=== PATIENT | female | born 1990 | race Caucasian/White ===

== ENCOUNTER 2019-09-26 10:05 | Inpatient (IN) ==
[2019-09-26] MEDS ORDERED: OXYTOCIN 30 UNITS/500 ML BAG IV PRN ×2 (10:17)
--- NOTE | 2019-09-26 10:28 | History & Physical Report ---
Date of Service September 26, 2019 Assessment & Plan (1) : Patient is a 29 yo here for IOL. -GBS -, Blood type A+ -Pitocin for contraction augmentation -Patient desires epidural; will consult anaesthesia when contractions become painful -BSG checks q4h -Anticipate vaginal delivery. (2) Insulin controlled gestational diabetes mellitus (GDM) during : (3) Nausea and vomiting in : (4) Supervision of normal first : History of Present Illness Chief Complaint: IOL Primary Care Provider: DIONISIO PCP at 40W 0D by certain LMP 12/20/18 presenting today for IOL. Patient notes that she has GDM and has been taking insulin throughout the . She notes that her sugars have been well controlled on the insulin and that her most recent check this morning around 6AM was blood sugar 59, she shortly had some eggs afterwards. She denies any complications with the current otherwise and has been attending OB appointments appropriately. She has been taking her insulin, prenatals, and Zofran as needed for nausea. She notes movement and minimal contractions (one every 1/2 hour for a few seconds). She denies any gush of fluid, but does note some spotting which she associates with having her cervix checked the day prior. Labs -Blood type: A+ -Antibody screen: Negative -H.9 -Hct: 37.4 -Wbc: 9.23 -Plt: 165 -Rubella: Immune -VDRL/RPR: Nonreactive -Gonorrhea: Not detected -Chlamydia: Not detected -HIV: Negative -HbSAg: Negative -GBS: Negative -Glucose tolerance x 2: 1hr GTT 165, no 2hr conducted. Allergies Allergy/AdvReac Type Severity Reaction Status Date / Time No Known Allergies Verified 09/25/19 08:40 Home Medications Home Medications Medication Instructions Recorded Confirmed Type KIG-[id number] 3-fat com #1 27 cap PO cap 03/12/19 09/25/19 History mg-1 mg-300 mg capsule blood sugar diagnostic #120 ea 05/24/19 09/25/19 Rx lancets 33 gauge #120 ea 05/24/19 09/25/19 Rx acetone (urine) test #50 ea 05/25/19 09/25/19 Rx insulin syringe-needle U-100 0.5 #50 ea 06/06/19 09/25/19 Rx mL 31 gauge x 5/16" insulin aspart U-100 100 unit/mL See Rx Instructions SQ .COMPLEX 06/13/19 09/26/19 Rx (3 mL) subcutaneous pen #15 ml pen needle, diabetic 32 gauge x #100 ea 06/13/19 09/25/19 Rx 5/32" insulin syringe-needle U-100 1 mL #100 ea 07/18/19 09/25/19 Rx 31 gauge x 5/16" insulin NPH isoph U-100 human 100 units SQ QPM 09/26/19 09/26/19 History [Novolin N NPH U-100 Insulin] Patient History Medical History History of varicella vaccination Status post induced Surgical History S/P tendon repair S/P wisdom tooth extraction S/P wrist surgery Family History Mother Anaphylactic shock Anxiety Other Diabetes Denies family history of Ovarian cancer Prostate cancer Breast cancer Colorectal cancer Social History Preferred Language: Malian Communication Ability: Effective Postulant Required: No Beliefs That Will Affect Care: None marital status: Single Current Living Situation: Alone and Significant Other Other Information That Helps Us Care for You: No Feels Safe at Home: Yes Safety Concerns: Feels Safe At This Time Smoking Status: Never smoker Hx Alcohol Use: No Hx Substance Use: No OB History S/P prior induced [employer] History noncontributory Review of Systems no fever, no chills and no weakness no worsening vision no dizziness no cough and no dyspnea no chest pain, no dyspnea and no palpitations no abdominal pain, no nausea, no vomiting, no constipation and no diarrhea/loose stools no dysuria and no hematuria no headache(s) Physical Exam Constitutional: WD/WN, vitals as above Eyes: PERRL, conjunctivae normal, anicteric sclerae ENMT: external ear and nose normal, oropharynx normal Neck: normal visual inspection Respiratory: normal respiratory effort, lungs clear to auscultation Cardiovascular: Rate/Rhythm: regular rate and regular rhythm Heart Sounds: normal S1 and normal S2; no murmur Gastrointestinal (Abdomen): Inspection/Auscultation: + abdomen distended (Gravid) and normal bowel sounds Percussion/Palpation: abdomen soft; abdomen nontender Psychiatric: A+Ox3, euthymic affect Genitourinary: OB Exam Abdomen: + fundal height (Term), + heart tones, + vertex and + estimated weight (7 lbs) Manual OB Exam: + cervical dilation 2 cm, + cervical effacement 70% and + station -2 [address] Exam [address] by Dr[address] Peña Results & Data Vital Signs (Past 12 Hours) Vital Signs Temp Pulse Resp BP 09/26/19 10:16 36.9 C 20 09/26/19 10:15 114 H 164/96 H Code Status & VTE Plan VTE Prophylaxis Plan VTE Prophylaxis will be ordered: No Reason for no VTE drug order: Contraindicated Monitoring External Monitor Category 1, FHR 145 Supervising Physician Co-Signing Physician Notes Resident Physician Supervision Note: I was present with Dr. Mckeon during the history and exam. I discussed the case with the resident and agree with the findings and plan as documented in the note. Any exceptions or clarifications are listed here: Empirically dx'd with GDM at 23 weeks after declining 2hr GTT. AC>75% and patient on insulin. Followed per protocol, here for induction. Cervix favorable, pitocin per induction protocol. Documented By: Priyank Peña Jr, MD, FACOG Coding Level of Care Code None Diagnoses Z34.90 Insulin controlled gestational diabetes mellitus (GDM) during O24.414 Nausea and vomiting in O21.9 Supervision of normal first Z34.00 Resident Activity Tracking Resident Involvement: Resident Care Provided Care Provided: OB Delivery
[2019-09-26 10:38] LABS: Basophils # (auto) 0.02 K/uL (0-0.2); Basophils % (auto) 0.2 %; Eosinophils # (auto) 0.08 K/uL (0-0.5); Eosinophils % (auto) 0.9 %; Hematocrit (blood only) 37.4 % (37-47); Hemoglobin 12.9 g/dL (12.0-16.0); Immature Granulocytes # (auto) 0.02 K/uL (0.00-0.02); Immature Granulocytes % (auto) 0.2 %; Lymphocytes # (auto) 1.11 K/uL (1.2-3.4); Mean Corpuscular Hemoglobin 31.1 pg (25-34); Mean Corpuscular Volume 90.1 fL (80-100); Mean Platelet Volume 12.7 fL (7.4-10.4); Monocytes # (auto) 0.82 K/uL (0.11-0.59); Monocytes % (auto) 8.9 %; Neutrophils # (auto) 7.18 K/uL (1.4-6.5); Neutrophils % (auto) 77.8 %; Platelet Count 163 K/uL (130-400); RDW Coefficient of Variation 13.7 % (11.5-14.5); RDW Standard Deviation 45.3 fL (36.4-46.3); Red Blood Count 4.15 M/uL (4.2-5.4); White Blood Count 9.23 K/uL (4.8-10.8)
[2019-09-26 10:47] LABS: Mean Corpuscular Hgb Conc 34.5 g/dL (32-36)
[2019-09-26 10:51] LABS: INR 0.9 (0.9-1.1); Prothrombin Time 9.4 Seconds (9.0-12.0)
[2019-09-26 11:01] LABS: Alanine Aminotransferase 24 U/L (12-78); Albumin Level 2.8 gm/dl (3.4-5.0); Aspartate Aminotransferase 22 U/L (15-37); Bilirubin Direct < 0.1 mg/dl (0-0.2); Creatinine Clr Calc Pharmacy 186.5 ml/min; Est GFR (African American) 149.6; Uric Acid 5.8 mg/dl (2.6-7.2)
[2019-09-26 11:04] LABS: Alkaline Phosphatase 150 U/L (45-117); Bilirubin,Total 0.3 mg/dl (0.2-1)
[2019-09-26] MEDS: LACTATED RINGER'S 1,000 ML IV PRN ×3 (11:34→23:08)
--- NOTE | 2019-09-26 14:48 | Labor Progress Brief Note ---
Date of Service September 26, 2019 Subjective Reason For Note: Routine Evaluation Aware of ctx's Assessment & Plan (1) Insulin controlled gestational diabetes mellitus (GDM) during : (2) Supervision of normal first : - tracing Cat II, accelerations, moderate variability - continue pitocin Physical Exam Genitourinary: Cervix: no change, AROM, clear, IUPC placed Results & Data Vital Signs (Past 12 Hours) Vital Signs Temp Pulse Resp BP 09/26/19 14:30 20 09/26/19 14:03 99 H 120/73 09/26/19 14:00 20 09/26/19 13:33 100 H 136/97 09/26/19 13:30 18 09/26/19 13:03 94 H 141/84 H 09/26/19 13:00 20 09/26/19 12:35 95 H 135/85 09/26/19 12:33 100 H 143/98 H 09/26/19 12:30 20 09/26/19 12:03 100 H 150/94 H 09/26/19 12:00 99 H 20 169/95 H 09/26/19 11:45 98.4 F 18 09/26/19 11:30 20 09/26/19 10:51 98 H 146/89 H 09/26/19 10:43 101 H 139/92 09/26/19 10:22 100 H 144/89 H 09/26/19 10:20 98.4 F 09/26/19 10:16 98.4 F 09/26/19 10:15 114 H 164/96 H Coding Level of Care Code None Diagnoses Insulin controlled gestational diabetes mellitus (GDM) during O24.414 Supervision of normal first Z34.00
[2019-09-26] MEDS ORDERED: ePHEDrine sulfate 50 MG/ML AMP ONE (16:42)
[2019-09-26] MEDS ORDERED: fentaNYL citrate 100 MCG/2 ML VIAL ONE ×3 (16:42→21:50)
[2019-09-26] MEDS ORDERED: BUPIVACAINE 0.25% 30 ML VIAL ONE ×3 (16:42→21:50)
[2019-09-26] MEDS ORDERED: fentaNYL 2MCG/ML ROPIV 1.25MG/ML 100 ML BAG EPI ONE (16:42)
--- NOTE | 2019-09-26 17:03 | Anesthesiology Consultation ---
Date of Service September 26, 2019 Assessment & Plan Chart Review Chart Review: Acceptable Risk for Surgery, Patient NOT seen in Pre Admission Testing and Acceptable Risk for Labor Epidural Consults Requested none ASA ASA3 Proposed Anesthesia Anesthesia Type: Labor Epidural and CSE Risk / Benefits Reviewed With: PT / POA / Parent / Guardian, Accepts Plan and Informed Consent Obtained History Height/Weight Height: 5 ft 2 in Weight: 107.955 kg Allergies Allergy/AdvReac Type Severity Reaction Status Date / Time No Known Allergies Verified 09/25/19 08:40 Medications Home Medications Medication Instructions Recorded Confirmed Last Taken [id number]-[id number]-omega 3-fat com #1 27 cap PO cap 03/12/19 09/25/19 1 Day Ago mg-1 mg-300 mg capsule ~09/25/19 0800 blood sugar diagnostic #120 ea 05/24/19 09/25/19 Unknown lancets 33 gauge #120 ea 05/24/19 09/25/19 Unknown acetone (urine) test #50 ea 05/25/19 09/25/19 Unknown insulin syringe-needle U-100 0.5 #50 ea 06/06/19 09/25/19 Unknown mL 31 gauge x 5/16" insulin aspart U-100 100 unit/mL See Rx Instructions SQ .COMPLEX 06/13/19 09/26/19 09/25/19 20:00 (3 mL) subcutaneous pen #15 ml 10 units pen needle, diabetic 32 gauge x #100 ea 06/13/19 09/25/19 Unknown 5/32" insulin syringe-needle U-100 1 mL #100 ea 07/18/19 09/25/19 Unknown 31 gauge x 5/16" insulin NPH isoph U-100 human 100 units SQ QPM 09/26/19 09/26/19 1 Day Ago [Novolin N NPH U-100 Insulin] ~09/25/19 100 units Active Medications Generic Name Dose Route Start Last Admin Trade Name Freq PRN Reason Stop Dose Admin Lactated Ringer's 1,000 mls @ 125 mls/hr 09/26/19 10:09/26/19 16:48 Lr IV 09/28/19 10:16 999 mls/hr .Q8H PRN Administration L&D Protocol Protocol Oxytocin 30 units in 500 mls @ 9 mls/hr 09/26/19 10:17 09/26/19 15:53 Pitocin IV 02/16/20 10:16 0.54 units/hr .Q24H PRN 9 mls/hr Labor Induction/Augmentation Titration Protocol 0.54 UNITS/HR NPO Date Last Intake of Fluids: 09/26/19 Time Last Intake of Fluids: 15:30 Date Last Intake of Solids: 09/26/19 Time Last Intake of Solids: 06:30 Past Medical History Medical History History of varicella vaccination Status post induced Exercise / Class Metabolic Activity III < 4 Walking/Shop/Light housework Past Family History Family History Mother Anaphylactic shock Anxiety Other Diabetes Denies family history of Ovarian cancer Prostate cancer Breast cancer Colorectal cancer Past Surgical History Surgical History S/P tendon repair S/P wisdom tooth extraction S/P wrist surgery Past Anesthesia History No Hx of Anesthesia Complications and No Family Hx of Anesthesia Complications History of PONV No Hx of PONV and No Hx of Motion Sickness Social History Smoking Status: Never smoker Hx Alcohol Use: No Hx Substance Use: No Physical Exam Vital Signs Last Vital Signs Temp 36.6 C 09/26/19 15:30 Pulse 112 H 09/26/19 16:56 Resp 18 09/26/19 16:00 BP 136/84 09/26/19 16:04 Pulse Ox 99 09/26/19 16:56 Constitutional + morbidly obese ENMT Mouth: + small oral opening; no dentition abnormality Thyromental Distance: < 3.5 Finger Breadths Mallampati Class: III Neck normal visual inspection and trachea midline; neck extension not limited Respiratory normal respiratory effort Auscultation: lungs clear to auscultation bilaterally Cardiovascular Rate/Rhythm: regular rate and regular rhythm Heart Sounds: no murmur Vessels: no carotid bruit Musculoskeletal Spine: lumbar spine normal to inspection; normal cervical ROM Neurologic moves all extremities Motor/Sensory: no sensory deficit Psychiatric Orientation: alert and oriented x 3 Testing Laboratory Results 09/26/19 10:25 09/26/19 10:25 PT 9.4 Seconds (9.0-12.0) 09/26/19 10:25 INR 0.9 (0.9-1.1) 09/26/19 10:25 09/26/19 09/26/19 09/26/19 15:21 14:57 13:38 POC Glucose 104 H 62 L* 81 09/26/19 09/26/19 13:19 11:05 POC Glucose 60 L* 93
[2019-09-26] MEDS ORDERED: ePHEDrine sulfate 50 MG/ML AMP IV PRN (18:07)
[2019-09-26] MEDS ORDERED: NALOXONE HCL 1 MG in SODIUM CHLORIDE 0.9% 1000ML 1,000 ML IV PRN (18:07)
[2019-09-26] MEDS ORDERED: ONDANSETRON INJ 2 MG/ML 2 ML VIAL IV PRN (18:07)
[2019-09-26] MEDS ORDERED: NALOXONE HCL 0.4 MG/1 ML VIAL/CARP IV PRN (18:07)
--- NOTE | 2019-09-26 20:46 | Labor Progress Brief Note ---
Date of Service September 26, 2019 Subjective Reason For Note: Routine Evaluation Assessment & Plan (1) Insulin controlled gestational diabetes mellitus (GDM) during : (2) Supervision of normal first : - tracing Cat II, moderate variability with accelerations - pt comfortable with epidural - pitocin at 19 - will continue pitocin - will increase to 30 if needed Physical Exam Genitourinary: Cervix: 4-5/100/-2 Results & Data Vital Signs (Past 12 Hours) Vital Signs Temp Pulse Resp BP Pulse Ox 09/26/19 20:41 106 H 95 09/26/19 20:39 103 H 127/75 09/26/19 20:36 107 H 96 09/26/19 20:31 102 H 97 09/26/19 20:26 97 H 97 09/26/19 20:24 104 H 156/77 H 09/26/19 20:21 101 H 97 09/26/19 20:16 97 H 96 09/26/19 20:11 98 H 95 09/26/19 20:09 104 H 137/80 09/26/19 20:06 107 H 96 09/26/19 20:01 96 H 97 09/26/19 20:00 18 09/26/19 19:56 93 H 98 09/26/19 19:54 90 137/81 09/26/19 19:51 93 H 97 09/26/19 19:46 96 H 95 09/26/19 19:41 83 96 09/26/19 19:39 88 134/78 09/26/19 19:36 95 H 96 09/26/19 19:31 95 H 96 09/26/19 19:30 20 09/26/19 19:26 92 H 96 09/26/19 19:22 89 138/86 09/26/19 19:21 91 H 97 09/26/19 19:16 82 97 09/26/19 19:11 87 97 09/26/19 19:08 85 136/79 09/26/19 19:06 106 H 97 09/26/19 19:01 89 94 09/26/19 19:00 18 09/26/19 18:56 90 98 09/26/19 18:54 92 H 129/74 09/26/19 18:51 97 H 99 09/26/19 18:46 104 H 98 09/26/19 18:41 109 H 100 09/26/19 18:38 134/78 09/26/19 18:36 103 H 96 09/26/19 18:34 104 H 129/79 09/26/19 18:31 108 H 97 09/26/19 18:26 98 H 97 09/26/19 18:21 98 H 95 09/26/19 18:17 102 H 110/64 09/26/19 18:16 105 H 95 09/26/19 18:15 103 H 116/61 09/26/19 18:13 102 H 110/63 09/26/19 18:11 98 H 129/71 94 09/26/19 18:09 104 H 126/65 09/26/19 18:07 101 H 133/63 09/26/19 18:06 106 H 94 09/26/19 18:05 99 H 120/71 09/26/19 18:03 98 H 124/74 09/26/19 18:01 111 H 95 09/26/19 18:00 97.9 F 111 H 127/72 09/26/19 17:57 115 H 139/89 09/26/19 17:55 112 H 95 09/26/19 17:50 119 H 94 09/26/19 17:48 132 H 87 L 09/26/19 17:45 112 H 94 09/26/19 17:40 112 H 94 09/26/19 17:35 113 H 96 09/26/19 17:26 105 H 99 09/26/19 17:25 106 H 86 L 09/26/19 17:21 109 H 100 09/26/19 17:16 157 H 79 L 09/26/19 17:11 117 H 89 L 09/26/19 17:06 123 H 100 09/26/19 17:01 110 H 100 09/26/19 17:00 22 09/26/19 16:56 112 H 99 09/26/19 16:51 115 H 99 09/26/19 16:30 20 09/26/19 16:04 87 136/84 09/26/19 16:00 18 09/26/19 15:40 97 H 133/71 09/26/19 15:34 100 H 153/95 H 09/26/19 15:30 97.9 F 20 09/26/19 15:00 20 09/26/19 14:30 20 0214/20 14:03 99 H 120/73 09/26/19 14:00 20 09/26/19 13:33 100 H 136/97 09/26/19 13:30 18 09/26/19 13:03 94 H 141/84 H 09/26/19 13:00 20 09/26/19 12:35 95 H 135/85 09/26/19 12:33 100 H 143/98 H 09/26/19 12:30 20 09/26/19 12:03 100 H 150/94 H 09/26/19 12:00 99 H 20 169/95 H 09/26/19 11:45 98.4 F 18 09/26/19 11:30 20 09/26/19 10:51 98 H 146/89 H 09/26/19 10:43 101 H 139/92 09/26/19 10:22 100 H 144/89 H 09/26/19 10:20 98.4 F 20 09/26/19 10:16 98.4 F 09/26/19 10:15 114 H 164/96 H Coding Level of Care Code None Diagnoses Insulin controlled gestational diabetes mellitus (GDM) during O24.414 Supervision of normal first Z34.00
--- NOTE | 2019-09-26 21:44 | Labor Progress Brief Note ---
Date of Service September 26, 2019 Subjective Reason For Note: Requested By RN difficulty tracing baby Assessment & Plan (1) Insulin controlled gestational diabetes mellitus (GDM) during : - FSE applied for monitoring - continue pitocin (2) Supervision of normal first : Physical Exam Genitourinary: Cervix: no change, FSE applied Results & Data Vital Signs (Past 12 Hours) Vital Signs Temp Pulse Resp BP Pulse Ox 09/26/19 21:41 113 H 95 09/26/19 21:37 106 H 124/74 09/26/19 21:36 97 H 93 09/26/19 21:35 100 H 135/82 09/26/19 21:31 101 H 94 09/26/19 21:26 100 H 94 09/26/19 21:21 116 H 95 09/26/19 21:16 112 H 97 09/26/19 21:11 99 H 96 09/26/19 21:08 102 H 134/70 09/26/19 21:06 110 H 95 09/26/19 21:01 108 H 97 09/26/19 21:00 18 09/26/19 20:56 101 H 95 09/26/19 20:54 99 H 134/83 09/26/19 20:51 102 H 95 09/26/19 20:46 104 H 94 09/26/19 20:41 106 H 95 09/26/19 20:39 103 H 127/75 09/26/19 20:36 107 H 96 09/26/19 20:31 102 H 97 09/26/19 20:30 20 09/26/19 20:26 97 H 97 09/26/19 20:24 104 H 156/77 H 09/26/19 20:21 101 H 97 09/26/19 20:16 97 H 96 09/26/19 20:11 98 H 95 09/26/19 20:09 104 H 137/80 09/26/19 20:06 107 H 96 09/26/19 20:01 96 H 97 09/26/19 20:00 18 09/26/19 19:56 93 H 98 09/26/19 19:54 90 137/81 09/26/19 19:51 93 H 97 09/26/19 19:46 96 H 95 09/26/19 19:41 83 96 09/26/19 19:39 88 134/78 09/26/19 19:36 95 H 96 09/26/19 19:31 95 H 96 09/26/19 19:30 20 09/26/19 19:26 92 H 96 09/26/19 19:22 89 138/86 09/26/19 19:21 91 H 97 09/26/19 19:16 82 97 09/26/19 19:11 87 97 09/26/19 19:08 85 136/79 09/26/19 19:06 106 H 97 09/26/19 19:01 89 94 09/26/19 19:00 18 09/26/19 18:56 90 98 09/26/19 18:54 92 H 129/74 09/26/19 18:51 97 H 99 09/26/19 18:46 104 H 98 09/26/19 18:41 109 H 100 09/26/19 18:38 134/78 09/26/19 18:36 103 H 96 09/26/19 18:34 104 H 129/79 09/26/19 18:31 108 H 97 09/26/19 18:26 98 H 97 09/26/19 18:21 98 H 95 09/26/19 18:17 102 H 110/64 09/26/19 18:16 105 H 95 09/26/19 18:15 103 H 116/61 09/26/19 18:13 102 H 110/63 09/26/19 18:11 98 H 129/71 94 09/26/19 18:09 104 H 126/65 09/26/19 18:07 101 H 133/63 09/26/19 18:06 106 H 94 09/26/19 18:05 99 H 120/71 09/26/19 18:03 98 H 124/74 09/26/19 18:01 111 H 95 09/26/19 18:00 97.9 F 111 H 127/72 09/26/19 17:57 115 H 139/89 09/26/19 17:55 112 H 95 09/26/19 17:50 119 H 94 09/26/19 17:48 132 H 87 L 09/26/19 17:45 112 H 94 09/26/19 17:40 112 H 94 09/26/19 17:35 113 H 96 09/26/19 17:26 105 H 99 09/26/19 17:25 106 H 86 L 09/26/19 17:21 109 H 100 09/26/19 17:16 157 H 79 L 09/26/19 17:11 117 H 89 L 09/26/19 17:06 123 H 100 09/26/19 17:01 110 H 100 09/26/19 17:00 22 09/26/19 16:56 112 H 99 09/26/19 16:51 115 H 99 09/26/19 16:30 20 09/26/19 16:04 87 136/84 09/26/19 16:00 18 09/26/19 15:40 97 H 133/71 09/26/19 15:34 100 H 153/95 H 09/26/19 15:30 97.9 F 20 09/26/19 15:00 20 09/26/19 14:30 20 09/26/19 14:03 99 H 120/73 09/26/19 14:00 20 09/26/19 13:33 100 H 136/97 09/26/19 13:30 18 09/26/19 13:03 94 H 141/84 H 09/26/19 13:00 20 09/26/19 12:35 95 H 135/85 09/26/19 12:33 100 H 143/98 H 09/26/19 12:30 20 09/26/19 12:03 100 H 150/94 H 09/26/19 12:00 99 H 20 169/95 H 09/26/19 11:45 98.4 F 18 09/26/19 11:30 20 09/26/19 10:51 98 H 146/89 H 09/26/19 10:43 101 H 139/92 09/26/19 10:22 100 H 144/89 H 09/26/19 10:20 98.4 F 20 09/26/19 10:16 98.4 F 20 09/26/19 10:15 114 H 164/96 H Coding Level of Care Code None Diagnoses Insulin controlled gestational diabetes mellitus (GDM) during O24.414 Supervision of normal first Z34.00
--- NOTE | 2019-09-26 22:00 | Communication Note ---
Date of Service: September 26, 2019 At 2155, pt's epidural catheter was bolused w/ 12 ml 0.17% bupivacaine + 100 mcgs fentanyl,w/ intermittent aspiration and injections q 2ml w/o incident. PT vital signs are stable.
[2019-09-26] MEDS ORDERED: Nursing to Pharmacy Communication ONE (23:01)
[2019-09-27] MEDS: fentaNYL 2MCG/ML ROPIV 1.25MG/ML 100 ML BAG EPI PRN ×2 (00:55→06:08)
--- NOTE | 2019-09-27 02:40 | Labor Progress Brief Note ---
Date of Service September 27, 2019 Subjective Reason For Note: Routine Evaluation Assessment & Plan (1) Insulin controlled gestational diabetes mellitus (GDM) during : (2) Supervision of normal first : - tracing Cat II, accelerations and variability - pitocin at 30mU - cervical progress being made - continue induction Physical Exam Genitourinary: Cervix: 7-8/100/-1 Results & Data Vital Signs (Past 12 Hours) Vital Signs Temp Pulse Resp BP Pulse Ox 09/27/19 02:35 115 H 89/56 L 09/27/19 02:31 109 H 92 09/27/19 02:26 111 H 92 09/27/19 02:21 107 H 92 09/27/19 02:20 110 H 100/54 L 09/27/19 02:16 108 H 92 09/27/19 02:11 110 H 93 09/27/19 02:06 116 H 94 09/27/19 02:05 121 H 125/58 L 09/27/19 02:03 18 09/27/19 02:01 129 H 94 09/27/19 01:56 125 H 94 09/27/19 01:51 117 H 95 09/27/19 01:48 123 H 126/63 09/27/19 01:46 120 H 95 09/27/19 01:41 141 H 95 09/27/19 01:36 121 H 93 09/27/19 01:31 116 H 95 09/27/19 01:26 111 H 93 09/27/19 01:21 110 H 93 09/27/19 01:18 117 H 135/82 09/27/19 01:16 114 H 94 09/27/19 01:11 115 H 94 09/27/19 01:06 121 H 94 09/27/19 01:05 114 H 18 132/89 09/27/19 01:01 111 H 94 09/27/19 00:56 113 H 94 09/27/19 00:51 111 H 94 09/27/19 00:49 99.1 F 18 09/27/19 00:48 127 H 127/71 09/27/19 00:46 125 H 94 09/27/19 00:41 127 H 94 09/27/19 00:36 110 H 93 09/27/19 00:33 111 H 117/67 09/27/19 00:31 113 H 93 09/27/19 00:26 111 H 93 09/27/19 00:21 114 H 94 09/27/19 00:18 109 H 18 116/59 L 09/27/19 00:16 111 H 94 09/27/19 00:11 112 H 94 09/27/19 00:06 109 H 93 09/27/19 00:03 110 H 138/85 09/27/19 00:01 117 H 94 09/26/19 23:56 115 H 94 09/26/19 23:51 115 H 94 09/26/19 23:48 114 H 130/76 09/26/19 23:46 115 H 94 09/26/19 23:41 116 H 96 09/26/19 23:36 121 H 95 09/26/19 23:34 116 H 124/70 09/26/19 23:31 115 H 94 09/26/19 23:26 118 H 94 09/26/19 23:21 117 H 95 09/26/19 23:16 115 H 96 09/26/19 23:11 120 H 94 09/26/19 23:06 125 H 92 09/26/19 23:04 110 H 129/78 09/26/19 23:01 109 H 95 09/26/19 23:00 99.0 F 18 09/26/19 22:56 116 H 96 09/26/19 22:51 112 H 95 09/26/19 22:48 122 H 133/84 09/26/19 22:46 117 H 95 09/26/19 22:41 129 H 96 09/26/19 22:36 119 H 98 09/26/19 22:33 109 H 139/76 09/26/19 22:31 109 H 95 09/26/19 22:30 20 09/26/19 22:26 135 H 97 09/26/19 22:21 128 H 95 09/26/19 22:18 122 H 86 L 09/26/19 22:16 122 H 97 09/26/19 22:11 115 H 94 09/26/19 22:06 117 H 96 09/26/19 22:01 135 H 156/97 H 94 09/26/19 22:00 98.2 F 120 H 20 153/116 H 09/26/19 21:58 117 H 131/88 02/14/20 21:56 115 H 128/80 93 0220 21:53 104 H 129/82 20 21:51 118 H 92 0220 21:46 107 H 95 20 21:41 113 H 95 20 21:37 106 H 124/74 20 21:36 97 H 93 0220 21:35 100 H 135/82 20 21:31 101 H 94 20 21:26 100 H 94 20 21:21 116 H 95 20 21:16 112 H 97 20 21:11 99 H 96 09/26/19 21:08 102 H 134/70 09/26/19 21:06 110 H 95 09/26/19 21:01 108 H 97 09/26/19 21:00 18 09/26/19 20:56 101 H 95 20 20:54 99 H 134/83 09/26/19 20:51 102 H 95 20 20:46 104 H 94 20 20:41 106 H 95 20 20:39 103 H 127/75 20 20:36 107 H 96 20 20:31 102 H 97 20 20:30 20 09/26/19 20:26 97 H 97 20 20:24 104 H 156/77 H 09/26/19 20:21 101 H 97 20 20:16 97 H 96 20 20:11 98 H 95 20 20:09 104 H 137/80 0220 20:06 107 H 96 20 20:01 96 H 97 20 20:00 18 20 19:56 93 H 98 0220 19:54 90 137/81 0220 19:51 93 H 97 20 19:46 96 H 95 20 19:41 83 96 0220 19:39 88 134/78 0220 19:36 95 H 96 20 19:31 95 H 96 20 19:30 20 09/26/19 19:26 92 H 96 09/26/19 19:22 89 138/86 09/26/19 19:21 91 H 97 09/26/19 19:16 82 97 09/26/19 19:11 87 97 09/26/19 19:08 85 136/79 09/26/19 19:06 106 H 97 09/26/19 19:01 89 94 09/26/19 19:00 18 09/26/19 18:56 90 98 09/26/19 18:54 92 H 129/74 09/26/19 18:51 97 H 99 09/26/19 18:46 104 H 98 09/26/19 18:41 109 H 100 09/26/19 18:38 134/78 09/26/19 18:36 103 H 96 09/26/19 18:34 104 H 129/79 09/26/19 18:31 108 H 97 09/26/19 18:26 98 H 97 09/26/19 18:21 98 H 95 09/26/19 18:17 102 H 110/64 09/26/19 18:16 105 H 95 09/26/19 18:15 103 H 116/61 09/26/19 18:13 102 H 110/63 09/26/19 18:11 98 H 129/71 94 09/26/19 18:09 104 H 126/65 09/26/19 18:07 101 H 133/63 09/26/19 18:06 106 H 94 09/26/19 18:05 99 H 120/71 09/26/19 18:03 98 H 124/74 09/26/19 18:01 111 H 95 09/26/19 18:00 97.9 F 111 H 127/72 09/26/19 17:57 115 H 139/89 09/26/19 17:55 112 H 95 09/26/19 17:50 119 H 94 09/26/19 17:48 132 H 87 L 09/26/19 17:45 112 H 94 09/26/19 17:40 112 H 94 09/26/19 17:35 113 H 96 09/26/19 17:26 105 H 99 09/26/19 17:25 106 H 86 L 09/26/19 17:21 109 H 100 09/26/19 17:16 157 H 79 L 09/26/19 17:11 117 H 89 L 09/26/19 17:06 123 H 100 09/26/19 17:01 110 H 100 09/26/19 17:00 22 09/26/19 16:56 112 H 99 09/26/19 16:51 115 H 99 09/26/19 16:30 20 09/26/19 16:04 87 136/84 09/26/19 16:00 18 09/26/19 15:40 97 H 133/71 09/26/19 15:34 100 H 153/95 H 09/26/19 15:30 97.9 F 20 09/26/19 15:00 20 Coding Level of Care Code None Diagnoses Insulin controlled gestational diabetes mellitus (GDM) during O24.414 Supervision of normal first Z34.00
[2019-09-27] MEDS ORDERED: ACETAMINOPHEN 325 MG TAB PO ONE (04:51)
--- NOTE | 2019-09-27 06:48 | Labor Progress Brief Note ---
Date of Service September 27, 2019 Subjective Reason For Note: Routine Evaluation Assessment & Plan (1) Insulin controlled gestational diabetes mellitus (GDM) during : (2) Supervision of normal first : - tracing Cat II, moderate variability and accels - pt feeling pressure - couldn't reduce the lip - discussed with patient Physical Exam Genitourinary: Cervix: Anterior Lip/100%/0-(+)1 Results & Data Vital Signs (Past 12 Hours) Vital Signs Temp Pulse Resp BP Pulse Ox 09/27/19 06:42 110 H 108/65 09/27/19 06:41 111 H 94 09/27/19 06:36 123 H 94 09/27/19 06:33 129 H 140/98 84 L 09/27/19 06:31 99 H 91 09/27/19 06:26 107 H 94 09/27/19 06:25 120 H 86 L 09/27/19 06:21 99 H 93 09/27/19 06:18 96 H 115/59 L 09/27/19 06:16 113 H 92 09/27/19 06:14 100.8 F H 20 09/27/19 06:11 98 H 90 09/27/19 06:09 98 H 89 L 09/27/19 06:06 111 H 94 09/27/19 06:04 114 H 126/69 86 L 09/27/19 06:01 110 H 93 09/27/19 05:57 103 H 89 L 09/27/19 05:56 108 H 90 09/27/19 05:51 112 H 94 09/27/19 05:49 115 H 137/76 09/27/19 05:46 118 H 93 09/27/19 05:41 119 H 92 09/27/19 05:36 118 H 94 09/27/19 05:33 112 H 139/81 82 L 09/27/19 05:31 105 H 93 09/27/19 05:26 105 H 93 09/27/19 05:21 106 H 93 09/27/19 05:18 105 H 140/83 87 L 09/27/19 05:16 113 H 94 09/27/19 05:11 118 H 95 09/27/19 05:06 127 H 93 09/27/19 05:03 117/71 09/27/19 05:01 118 H 94 09/27/19 04:56 103 H 93 02/15/20 04:51 115 H 96 09/27/19 04:48 97 H 116/61 09/27/19 04:46 106 H 93 09/27/19 04:41 139 H 95 09/27/19 04:36 131 H 95 09/27/19 04:34 130 H 143/65 H 09/27/19 04:31 141 H 95 09/27/19 04:28 100.2 F H 20 09/27/19 04:27 127 H 89 L 09/27/19 04:26 125 H 94 09/27/19 04:21 106 H 92 09/27/19 04:19 104 H 119/61 09/27/19 04:16 105 H 92 09/27/19 04:11 105 H 91 09/27/19 04:06 103 H 92 09/27/19 04:03 105 H 18 121/69 09/27/19 04:01 104 H 91 09/27/19 03:56 104 H 94 09/27/19 03:51 115 H 95 09/27/19 03:49 117 H 18 121/67 09/27/19 03:46 131 H 96 09/27/19 03:41 130 H 96 09/27/19 03:36 101 H 92 09/27/19 03:34 106 H 133/69 09/27/19 03:31 101 H 91 09/27/19 03:26 101 H 91 09/27/19 03:21 103 H 92 09/27/19 03:18 98 H 119/70 09/27/19 03:16 104 H 91 09/27/19 03:11 103 H 92 09/27/19 03:06 99 H 92 09/27/19 03:04 101 H 126/69 09/27/19 03:01 101 H 92 09/27/19 02:56 101 H 92 09/27/19 02:51 115 H 93 09/27/19 02:48 110 H 128/72 09/27/19 02:46 114 H 92 09/27/19 02:41 110 H 91 09/27/19 02:36 100.4 F H 115 H 18 114/63 93 09/27/19 02:35 115 H 89/56 L 09/27/19 02:31 109 H 92 09/27/19 02:26 111 H 92 02/15/20 02:21 107 H 92 09/27/19 02:20 110 H 100/54 L 09/27/19 02:16 108 H 92 09/27/19 02:11 110 H 93 09/27/19 02:06 116 H 94 09/27/19 02:05 121 H 125/58 L 09/27/19 02:03 18 09/27/19 02:01 129 H 94 09/27/19 01:56 125 H 94 09/27/19 01:51 117 H 95 09/27/19 01:48 123 H 126/63 09/27/19 01:46 120 H 95 09/27/19 01:41 141 H 95 09/27/19 01:36 121 H 93 09/27/19 01:31 116 H 95 09/27/19 01:26 111 H 93 09/27/19 01:21 110 H 93 09/27/19 01:18 117 H 135/82 09/27/19 01:16 114 H 94 09/27/19 01:11 115 H 94 09/27/19 01:06 121 H 94 09/27/19 01:05 114 H 18 132/89 09/27/19 01:01 111 H 94 09/27/19 00:56 113 H 94 09/27/19 00:51 111 H 94 09/27/19 00:49 99.1 F 18 09/27/19 00:48 127 H 127/71 09/27/19 00:46 125 H 94 09/27/19 00:41 127 H 94 09/27/19 00:36 110 H 93 09/27/19 00:33 111 H 117/67 09/27/19 00:31 113 H 93 09/27/19 00:26 111 H 93 09/27/19 00:21 114 H 94 09/27/19 00:18 109 H 18 116/59 L 09/27/19 00:16 111 H 94 09/27/19 00:11 112 H 94 09/27/19 00:06 109 H 93 09/27/19 00:03 110 H 138/85 09/27/19 00:01 117 H 94 09/26/19 23:56 115 H 94 09/26/19 23:51 115 H 94 09/26/19 23:48 114 H 130/76 09/26/19 23:46 115 H 94 09/26/19 23:41 116 H 96 09/26/19 23:36 121 H 95 09/26/19 23:34 116 H 124/70 09/26/19 23:31 115 H 94 09/26/19 23:26 118 H 94 09/26/19 23:21 117 H 95 09/26/19 23:16 115 H 96 09/26/19 23:11 120 H 94 09/26/19 23:06 125 H 92 09/26/19 23:04 110 H 129/78 09/26/19 23:01 109 H 95 09/26/19 23:00 99.0 F 18 09/26/19 22:56 116 H 96 09/26/19 22:51 112 H 95 09/26/19 22:48 122 H 133/84 09/26/19 22:46 117 H 95 09/26/19 22:41 129 H 96 09/26/19 22:36 119 H 98 09/26/19 22:33 109 H 139/76 09/26/19 22:31 109 H 95 09/26/19 22:30 20 09/26/19 22:26 135 H 97 09/26/19 22:21 128 H 95 09/26/19 22:18 122 H 86 L 09/26/19 22:16 122 H 97 09/26/19 22:11 115 H 94 09/26/19 22:06 117 H 96 09/26/19 22:01 135 H 156/97 H 94 09/26/19 22:00 98.2 F 120 H 20 153/116 H 09/26/19 21:58 117 H 131/88 09/26/19 21:56 115 H 128/80 93 09/26/19 21:53 104 H 129/82 09/26/19 21:51 118 H 92 09/26/19 21:46 107 H 95 09/26/19 21:41 113 H 95 09/26/19 21:37 106 H 124/74 09/26/19 21:36 97 H 93 09/26/19 21:35 100 H 135/82 09/26/19 21:31 101 H 94 09/26/19 21:26 100 H 94 09/26/19 21:21 116 H 95 09/26/19 21:16 112 H 97 09/26/19 21:11 99 H 96 09/26/19 21:08 102 H 134/70 02 21:06 110 H 95 09/26/19 21:01 108 H 97 09/26/19 21:00 18 09/26/19 20:56 101 H 95 20 20:54 99 H 134/83 09/26/19 20:51 102 H 95 09/26/19 20:46 104 H 94 09/26/19 20:41 106 H 95 02 20:39 103 H 127/75 09/26/19 20:36 107 H 96 09/26/19 20:31 102 H 97 09/26/19 20:30 20 09/26/19 20:26 97 H 97 09/26/19 20:24 104 H 156/77 H 09/26/19 20:21 101 H 97 09/26/19 20:16 97 H 96 09/26/19 20:11 98 H 95 09/26/19 20:09 104 H 137/80 09/26/19 20:06 107 H 96 09/26/19 20:01 96 H 97 09/26/19 20:00 18 09/26/19 19:56 93 H 98 09/26/19 19:54 90 137/81 09/26/19 19:51 93 H 97 09/26/19 19:46 96 H 95 09/26/19 19:41 83 96 09/26/19 19:39 88 134/78 09/26/19 19:36 95 H 96 09/26/19 19:31 95 H 96 09/26/19 19:30 20 09/26/19 19:26 92 H 96 09/26/19 19:22 89 138/86 09/26/19 19:21 91 H 97 09/26/19 19:16 82 97 09/26/19 19:11 87 97 09/26/19 19:08 85 136/79 09/26/19 19:06 106 H 97 09/26/19 19:01 89 94 09/26/19 19:00 18 09/26/19 18:56 90 98 09/26/19 18:54 92 H 129/74 09/26/19 18:51 97 H 99 09/26/19 18:46 104 H 98 Coding Level of Care Code None Diagnoses Insulin controlled gestational diabetes mellitus (GDM) during O24.414 Supervision of normal first Z34.00
[2019-09-27] MEDS: LACTATED RINGER'S 1,000 ML IV PRN (07:04)
--- NOTE | 2019-09-27 08:39 | Obstetrical Progress Note ---
Date of Service September 27, 2019 Subjective sign out from call from previois provider at 8:20am. GDM with high EFW suspected and long induction process to this point. Patient is now pushing at full dilatation with some descent on pushing but still at spines station. will follow closely, however high risk for large fetus so will remain cautious at this time regarding likelihood of . Continue to push and follow progress Results & Data Vital Signs (Past 12 Hours) Vital Signs Temp Pulse Resp BP Pulse Ox 09/27/19 08:31 131 H 91 09/27/19 08:27 121 H 87 L 09/27/19 08:26 142 H 82 L 09/27/19 08:21 129 H 92 09/27/19 08:16 123 H 95 09/27/19 08:11 101 H 87 L 09/27/19 08:06 105 H 88 L 09/27/19 08:03 98 H 126/71 09/27/19 08:01 95 H 90 09/27/19 07:56 117 H 90 09/27/19 07:54 103 H 88 L 09/27/19 07:51 103 H 90 09/27/19 07:49 104 H 89 L 09/27/19 07:48 109 H 136/73 09/27/19 07:46 109 H 88 L 09/27/19 07:43 120 H 89 L 09/27/19 07:41 117 H 94 09/27/19 07:36 149 H 91 09/27/19 07:34 116 H 139/70 09/27/19 07:31 105 H 93 09/27/19 07:26 106 H 94 09/27/19 07:21 130 H 95 09/27/19 07:18 111 H 126/72 09/27/19 07:16 109 H 93 09/27/19 07:11 116 H 93 09/27/19 07:06 116 H 95 09/27/19 07:04 98.4 F 110 H 20 133/78 09/27/19 07:01 112 H 92 09/27/19 06:56 108 H 92 09/27/19 06:51 109 H 93 09/27/19 06:48 104 H 20 117/66 09/27/19 06:46 114 H 93 09/27/19 06:42 110 H 108/65 09/27/19 06:41 111 H 94 09/27/19 06:36 123 H 94 09/27/19 06:33 129 H 140/98 84 L 09/27/19 06:31 99 H 91 09/27/19 06:26 107 H 94 09/27/19 06:25 120 H 86 L 09/27/19 06:21 99 H 93 09/27/19 06:18 96 H 115/59 L 09/27/19 06:16 113 H 92 09/27/19 06:14 100.8 F H 20 09/27/19 06:11 98 H 90 09/27/19 06:09 98 H 89 L 09/27/19 06:06 111 H 94 09/27/19 06:04 114 H 126/69 86 L 09/27/19 06:01 110 H 93 09/27/19 05:57 103 H 89 L 09/27/19 05:56 108 H 90 09/27/19 05:51 112 H 94 09/27/19 05:49 115 H 137/76 09/27/19 05:46 118 H 93 09/27/19 05:41 119 H 92 09/27/19 05:36 118 H 94 09/27/19 05:33 112 H 139/81 82 L 09/27/19 05:31 105 H 93 09/27/19 05:26 105 H 93 09/27/19 05:21 106 H 93 09/27/19 05:18 105 H 140/83 87 L 09/27/19 05:16 113 H 94 09/27/19 05:11 118 H 95 09/27/19 05:06 127 H 93 09/27/19 05:03 117/71 09/27/19 05:01 118 H 94 09/27/19 04:56 103 H 93 09/27/19 04:51 115 H 96 09/27/19 04:48 97 H 116/61 09/27/19 04:46 106 H 93 09/27/19 04:41 139 H 95 09/27/19 04:36 131 H 95 09/27/19 04:34 130 H 143/65 H 09/27/19 04:31 141 H 95 09/27/19 04:28 100.2 F H 20 09/27/19 04:27 127 H 89 L 09/27/19 04:26 125 H 94 09/27/19 04:21 106 H 92 09/27/19 04:19 104 H 119/61 09/27/19 04:16 105 H 92 09/27/19 04:11 105 H 91 09/27/19 04:06 103 H 92 09/27/19 04:03 105 H 18 121/69 09/27/19 04:01 104 H 91 09/27/19 03:56 104 H 94 09/27/19 03:51 115 H 95 09/27/19 03:49 117 H 18 121/67 09/27/19 03:46 131 H 96 09/27/19 03:41 130 H 96 09/27/19 03:36 101 H 92 09/27/19 03:34 106 H 133/69 09/27/19 03:31 101 H 91 09/27/19 03:26 101 H 91 09/27/19 03:21 103 H 92 09/27/19 03:18 98 H 119/70 09/27/19 03:16 104 H 91 09/27/19 03:11 103 H 92 09/27/19 03:06 99 H 92 09/27/19 03:04 101 H 126/69 09/27/19 03:01 101 H 92 09/27/19 02:56 101 H 92 09/27/19 02:51 115 H 93 09/27/19 02:48 110 H 128/72 09/27/19 02:46 114 H 92 09/27/19 02:41 110 H 91 09/27/19 02:36 100.4 F H 115 H 18 114/63 93 09/27/19 02:35 115 H 89/56 L 09/27/19 02:31 109 H 92 09/27/19 02:26 111 H 92 09/27/19 02:21 107 H 92 09/27/19 02:20 110 H 100/54 L 09/27/19 02:16 108 H 92 09/27/19 02:11 110 H 93 09/27/19 02:06 116 H 94 09/27/19 02:05 121 H 125/58 L 09/27/19 02:03 18 09/27/19 02:01 129 H 94 09/27/19 01:56 125 H 94 09/27/19 01:51 117 H 95 09/27/19 01:48 123 H 126/63 09/27/19 01:46 120 H 95 09/27/19 01:41 141 H 95 09/27/19 01:36 121 H 93 09/27/19 01:31 116 H 95 09/27/19 01:26 111 H 93 09/27/19 01:21 110 H 93 09/27/19 01:18 117 H 135/82 09/27/19 01:16 114 H 94 09/27/19 01:11 115 H 94 09/27/19 01:06 121 H 94 09/27/19 01:05 114 H 18 132/89 09/27/19 01:01 111 H 94 09/27/19 00:56 113 H 94 09/27/19 00:51 111 H 94 09/27/19 00:49 99.1 F 18 09/27/19 00:48 127 H 127/71 09/27/19 00:46 125 H 94 09/27/19 00:41 127 H 94 09/27/19 00:36 110 H 93 09/27/19 00:33 111 H 117/67 09/27/19 00:31 113 H 93 09/27/19 00:26 111 H 93 09/27/19 00:21 114 H 94 09/27/19 00:18 109 H 18 116/59 L 09/27/19 00:16 111 H 94 09/27/19 00:11 112 H 94 09/27/19 00:06 109 H 93 09/27/19 00:03 110 H 138/85 09/27/19 00:01 117 H 94 09/26/19 23:56 115 H 94 09/26/19 23:51 115 H 94 09/26/19 23:48 114 H 130/76 09/26/19 23:46 115 H 94 09/26/19 23:41 116 H 96 09/26/19 23:36 121 H 95 09/26/19 23:34 116 H 124/70 09/26/19 23:31 115 H 94 09/26/19 23:26 118 H 94 09/26/19 23:21 117 H 95 09/26/19 23:16 115 H 96 09/26/19 23:11 120 H 94 09/26/19 23:06 125 H 92 09/26/19 23:04 110 H 129/78 02/14/20 23:01 109 H 95 09/26/19 23:00 99.0 F 18 09/26/19 22:56 116 H 96 09/26/19 22:51 112 H 95 09/26/19 22:48 122 H 133/84 09/26/19 22:46 117 H 95 09/26/19 22:41 129 H 96 09/26/19 22:36 119 H 98 09/26/19 22:33 109 H 139/76 09/26/19 22:31 109 H 95 09/26/19 22:30 20 09/26/19 22:26 135 H 97 09/26/19 22:21 128 H 95 09/26/19 22:18 122 H 86 L 09/26/19 22:16 122 H 97 09/26/19 22:11 115 H 94 09/26/19 22:06 117 H 96 09/26/19 22:01 135 H 156/97 H 94 09/26/19 22:00 98.2 F 120 H 20 153/116 H 09/26/19 21:58 117 H 131/88 09/26/19 21:56 115 H 128/80 93 09/26/19 21:53 104 H 129/82 09/26/19 21:51 118 H 92 09/26/19 21:46 107 H 95 09/26/19 21:41 113 H 95 09/26/19 21:37 106 H 124/74 09/26/19 21:36 97 H 93 09/26/19 21:35 100 H 135/82 09/26/19 21:31 101 H 94 09/26/19 21:26 100 H 94 09/26/19 21:21 116 H 95 09/26/19 21:16 112 H 97 09/26/19 21:11 99 H 96 09/26/19 21:08 102 H 134/70 09/26/19 21:06 110 H 95 09/26/19 21:01 108 H 97 09/26/19 21:00 18 09/26/19 20:56 101 H 95 09/26/19 20:54 99 H 134/83 09/26/19 20:51 102 H 95 09/26/19 20:46 104 H 94 09/26/19 20:41 106 H 95 09/26/19 20:39 103 H 127/75 09/26/19 20:36 107 H 96 PG Care Time/CCT Total # of Minutes Spent Total Time Spent with Patient: Total time spent is greater than 50% in coordination of care (as documented) at patient's floor/unit and/or counseling patient: Coding Level of Care Code None
--- NOTE | 2019-09-27 10:32 | Obstetrical Progress Note ---
Date of Service September 27, 2019 Subjective Patient has been pushing for 2 hours, there is increased caput present. She does move the baby, but not past a point in the pelvis. Difficult to assess position as sig. caput. With the long, 2 day induction process AND large EFW suggested by U/S, and GDM, I have offered C/S at this point. She will push 15 more minutes and if no progress she states she wishes C/S.. Discussed risks Results & Data Vital Signs (Past 12 Hours) Vital Signs Temp Pulse Resp BP Pulse Ox 09/27/19 10:27 130 H 92 09/27/19 10:23 128 H 88 L 09/27/19 10:22 129 H 90 09/27/19 10:17 126 H 89 L 09/27/19 10:12 128 H 89 L 09/27/19 10:11 143 H 86 L 09/27/19 10:07 123 H 91 09/27/19 10:06 127 H 87 L 09/27/19 10:02 127 H 89 L 09/27/19 10:00 121 H 89 L 09/27/19 09:58 118 H 143/87 H 09/27/19 09:57 118 H 87 L 09/27/19 09:55 114 H 89 L 09/27/19 09:52 139 H 92 09/27/19 09:50 128 H 84 L 09/27/19 09:47 125 H 85 L 09/27/19 09:43 117 H 89 L 09/27/19 09:42 132 H 89 L 09/27/19 09:39 98.1 F 20 09/27/19 09:37 125 H 89 L 09/27/19 09:31 139 H 92 09/27/19 09:26 131 H 91 09/27/19 09:21 119 H 85 L 09/27/19 09:16 119 H 81 L 09/27/19 09:13 136 H 89 L 09/27/19 09:11 122 H 86 L 09/27/19 09:06 123 H 87 L 09/27/19 09:01 132 H 91 09/27/19 08:56 143 H 92 09/27/19 08:55 116 H 88 L 09/27/19 08:51 120 H 84 L 09/27/19 08:50 131 H 89 L 09/27/19 08:48 125 H 124/66 09/27/19 08:46 128 H 86 L 09/27/19 08:45 116 H 86 L 09/27/19 08:41 129 H 90 09/27/19 08:36 118 H 87 L 09/27/19 08:32 128 H 89 L 09/27/19 08:31 131 H 91 09/27/19 08:27 121 H 87 L 09/27/19 08:26 142 H 82 L 09/27/19 08:21 129 H 92 09/27/19 08:16 123 H 95 09/27/19 08:11 101 H 87 L 09/27/19 08:06 105 H 88 L 09/27/19 08:03 98 H 126/71 09/27/19 08:01 95 H 90 09/27/19 07:56 117 H 90 09/27/19 07:54 103 H 88 L 09/27/19 07:51 103 H 90 09/27/19 07:49 104 H 89 L 09/27/19 07:48 109 H 136/73 09/27/19 07:46 109 H 88 L 09/27/19 07:43 120 H 89 L 09/27/19 07:41 117 H 94 09/27/19 07:36 149 H 91 09/27/19 07:34 116 H 139/70 09/27/19 07:31 105 H 93 09/27/19 07:26 106 H 94 09/27/19 07:21 130 H 95 09/27/19 07:18 111 H 126/72 09/27/19 07:16 109 H 93 09/27/19 07:11 116 H 93 09/27/19 07:06 116 H 95 09/27/19 07:04 98.4 F 110 H 20 133/78 09/27/19 07:01 112 H 92 09/27/19 06:56 108 H 92 09/27/19 06:51 109 H 93 09/27/19 06:48 104 H 20 117/66 09/27/19 06:46 114 H 93 09/27/19 06:42 110 H 108/65 09/27/19 06:41 111 H 94 09/27/19 06:36 123 H 94 09/27/19 06:33 129 H 140/98 84 L 09/27/19 06:31 99 H 91 09/27/19 06:26 107 H 94 09/27/19 06:25 120 H 86 L 09/27/19 06:21 99 H 93 09/27/19 06:18 96 H 115/59 L 09/27/19 06:16 113 H 92 09/27/19 06:14 100.8 F H 20 09/27/19 06:11 98 H 90 09/27/19 06:09 98 H 89 L 09/27/19 06:06 111 H 94 09/27/19 06:04 114 H 126/69 86 L 09/27/19 06:01 110 H 93 09/27/19 05:57 103 H 89 L 09/27/19 05:56 108 H 90 09/27/19 05:51 112 H 94 09/27/19 05:49 115 H 137/76 09/27/19 05:46 118 H 93 09/27/19 05:41 119 H 92 09/27/19 05:36 118 H 94 09/27/19 05:33 112 H 139/81 82 L 09/27/19 05:31 105 H 93 09/27/19 05:26 105 H 93 09/27/19 05:21 106 H 93 09/27/19 05:18 105 H 140/83 87 L 09/27/19 05:16 113 H 94 09/27/19 05:11 118 H 95 09/27/19 05:06 127 H 93 09/27/19 05:03 117/71 09/27/19 05:01 118 H 94 09/27/19 04:56 103 H 93 09/27/19 04:51 115 H 96 09/27/19 04:48 97 H 116/61 09/27/19 04:46 106 H 93 09/27/19 04:41 139 H 95 09/27/19 04:36 131 H 95 09/27/19 04:34 130 H 143/65 H 09/27/19 04:31 141 H 95 09/27/19 04:28 100.2 F H 20 09/27/19 04:27 127 H 89 L 09/27/19 04:26 125 H 94 09/27/19 04:21 106 H 92 09/27/19 04:19 104 H 119/61 02/15/20 04:16 105 H 92 09/27/19 04:11 105 H 91 09/27/19 04:06 103 H 92 09/27/19 04:03 105 H 18 121/69 09/27/19 04:01 104 H 91 09/27/19 03:56 104 H 94 09/27/19 03:51 115 H 95 09/27/19 03:49 117 H 18 121/67 09/27/19 03:46 131 H 96 09/27/19 03:41 130 H 96 09/27/19 03:36 101 H 92 09/27/19 03:34 106 H 133/69 09/27/19 03:31 101 H 91 09/27/19 03:26 101 H 91 09/27/19 03:21 103 H 92 09/27/19 03:18 98 H 119/70 09/27/19 03:16 104 H 91 09/27/19 03:11 103 H 92 09/27/19 03:06 99 H 92 09/27/19 03:04 101 H 126/69 09/27/19 03:01 101 H 92 09/27/19 02:56 101 H 92 09/27/19 02:51 115 H 93 09/27/19 02:48 110 H 128/72 09/27/19 02:46 114 H 92 09/27/19 02:41 110 H 91 09/27/19 02:36 100.4 F H 115 H 18 114/63 93 09/27/19 02:35 115 H 89/56 L 09/27/19 02:31 109 H 92 09/27/19 02:26 111 H 92 09/27/19 02:21 107 H 92 09/27/19 02:20 110 H 100/54 L 09/27/19 02:16 108 H 92 09/27/19 02:11 110 H 93 09/27/19 02:06 116 H 94 09/27/19 02:05 121 H 125/58 L 09/27/19 02:03 18 09/27/19 02:01 129 H 94 09/27/19 01:56 125 H 94 09/27/19 01:51 117 H 95 09/27/19 01:48 123 H 126/63 09/27/19 01:46 120 H 95 09/27/19 01:41 141 H 95 09/27/19 01:36 121 H 93 09/27/19 01:31 116 H 95 09/27/19 01:26 111 H 93 09/27/19 01:21 110 H 93 09/27/19 01:18 117 H 135/82 09/27/19 01:16 114 H 94 09/27/19 01:11 115 H 94 09/27/19 01:06 121 H 94 09/27/19 01:05 114 H 18 132/89 09/27/19 01:01 111 H 94 09/27/19 00:56 113 H 94 09/27/19 00:51 111 H 94 09/27/19 00:49 99.1 F 18 09/27/19 00:48 127 H 127/71 09/27/19 00:46 125 H 94 09/27/19 00:41 127 H 94 09/27/19 00:36 110 H 93 09/27/19 00:33 111 H 117/67 09/27/19 00:31 113 H 93 09/27/19 00:26 111 H 93 09/27/19 00:21 114 H 94 09/27/19 00:18 109 H 18 116/59 L 09/27/19 00:16 111 H 94 09/27/19 00:11 112 H 94 09/27/19 00:06 109 H 93 09/27/19 00:03 110 H 138/85 09/27/19 00:01 117 H 94 09/26/19 23:56 115 H 94 09/26/19 23:51 115 H 94 09/26/19 23:48 114 H 130/76 09/26/19 23:46 115 H 94 09/26/19 23:41 116 H 96 09/26/19 23:36 121 H 95 09/26/19 23:34 116 H 124/70 09/26/19 23:31 115 H 94 09/26/19 23:26 118 H 94 09/26/19 23:21 117 H 95 09/26/19 23:16 115 H 96 09/26/19 23:11 120 H 94 09/26/19 23:06 125 H 92 09/26/19 23:04 110 H 129/78 09/26/19 23:01 109 H 95 09/26/19 23:00 99.0 F 18 09/26/19 22:56 116 H 96 09/26/19 22:51 112 H 95 09/26/19 22:48 122 H 133/84 09/26/19 22:46 117 H 95 09/26/19 22:41 129 H 96 09/26/19 22:36 119 H 98 09/26/19 22:33 109 H 139/76 09/26/19 22:31 109 H 95 09/26/19 22:30 20 PG Care Time/CCT Total # of Minutes Spent Total Time Spent with Patient: Total time spent is greater than 50% in coordination of care (as documented) at patient's floor/unit and/or counseling patient: Coding Level of Care Code None
--- NOTE | 2019-09-27 10:43 | Obstetrical Progress Note ---
Date of Service September 27, 2019 Assessment & Plan (1) Failure to progress in second stage of labor: Patient wishes to now proceed to C/S Agree, GDM on insulin with large baby and 2 day induction. Discussed increased rates of infection with long labor section. The patient was counseled to the nature of the procedure including alternatives such as labor. Risks were discussed including bleeding infection injury to bowel bladder ureter vessels and even baby. Deep Vein thrombosis, pulmonary embolus discussed. Breakdown of incision reviewed. Deep vein thrombosis pulmonary embolus hernia and failure of the incision to heal were discussed Patient verbalized understanding of this and was given ample time to ask questions Results & Data Vital Signs (Past 12 Hours) Vital Signs Temp Pulse Resp BP Pulse Ox 09/27/19 10:32 128 H 90 09/27/19 10:28 139 H 83 L 09/27/19 10:27 130 H 92 09/27/19 10:23 128 H 88 L 09/27/19 10:22 129 H 90 09/27/19 10:17 126 H 89 L 09/27/19 10:12 128 H 89 L 09/27/19 10:11 143 H 86 L 09/27/19 10:07 123 H 91 09/27/19 10:06 127 H 87 L 09/27/19 10:02 127 H 89 L 09/27/19 10:00 121 H 89 L 09/27/19 09:58 118 H 143/87 H 09/27/19 09:57 118 H 87 L 09/27/19 09:55 114 H 89 L 09/27/19 09:52 139 H 92 09/27/19 09:50 128 H 84 L 09/27/19 09:47 125 H 85 L 09/27/19 09:43 117 H 89 L 09/27/19 09:42 132 H 89 L 09/27/19 09:39 98.1 F 20 09/27/19 09:37 125 H 89 L 09/27/19 09:31 139 H 92 09/27/19 09:26 131 H 91 09/27/19 09:21 119 H 85 L 09/27/19 09:16 119 H 81 L 09/27/19 09:13 136 H 89 L 09/27/19 09:11 122 H 86 L 09/27/19 09:06 123 H 87 L 09/27/19 09:01 132 H 91 09/27/19 08:56 143 H 92 09/27/19 08:55 116 H 88 L 09/27/19 08:51 120 H 84 L 09/27/19 08:50 131 H 89 L 09/27/19 08:48 125 H 124/66 09/27/19 08:46 128 H 86 L 09/27/19 08:45 116 H 86 L 09/27/19 08:41 129 H 90 09/27/19 08:36 118 H 87 L 09/27/19 08:32 128 H 89 L 09/27/19 08:31 131 H 91 09/27/19 08:27 121 H 87 L 09/27/19 08:26 142 H 82 L 09/27/19 08:21 129 H 92 09/27/19 08:16 123 H 95 09/27/19 08:11 101 H 87 L 09/27/19 08:06 105 H 88 L 09/27/19 08:03 98 H 126/71 09/27/19 08:01 95 H 90 09/27/19 07:56 117 H 90 09/27/19 07:54 103 H 88 L 09/27/19 07:51 103 H 90 09/27/19 07:49 104 H 89 L 09/27/19 07:48 109 H 136/73 09/27/19 07:46 109 H 88 L 09/27/19 07:43 120 H 89 L 09/27/19 07:41 117 H 94 09/27/19 07:36 149 H 91 09/27/19 07:34 116 H 139/70 09/27/19 07:31 105 H 93 09/27/19 07:26 106 H 94 09/27/19 07:21 130 H 95 09/27/19 07:18 111 H 126/72 09/27/19 07:16 109 H 93 09/27/19 07:11 116 H 93 09/27/19 07:06 116 H 95 09/27/19 07:04 98.4 F 110 H 20 133/78 09/27/19 07:01 112 H 92 09/27/19 06:56 108 H 92 09/27/19 06:51 109 H 93 09/27/19 06:48 104 H 20 117/66 09/27/19 06:46 114 H 93 09/27/19 06:42 110 H 108/65 09/27/19 06:41 111 H 94 09/27/19 06:36 123 H 94 09/27/19 06:33 129 H 140/98 84 L 09/27/19 06:31 99 H 91 09/27/19 06:26 107 H 94 09/27/19 06:25 120 H 86 L 09/27/19 06:21 99 H 93 09/27/19 06:18 96 H 115/59 L 09/27/19 06:16 113 H 92 09/27/19 06:14 100.8 F H 20 09/27/19 06:11 98 H 90 09/27/19 06:09 98 H 89 L 09/27/19 06:06 111 H 94 09/27/19 06:04 114 H 126/69 86 L 09/27/19 06:01 110 H 93 09/27/19 05:57 103 H 89 L 09/27/19 05:56 108 H 90 09/27/19 05:51 112 H 94 09/27/19 05:49 115 H 137/76 09/27/19 05:46 118 H 93 09/27/19 05:41 119 H 92 09/27/19 05:36 118 H 94 09/27/19 05:33 112 H 139/81 82 L 09/27/19 05:31 105 H 93 09/27/19 05:26 105 H 93 09/27/19 05:21 106 H 93 09/27/19 05:18 105 H 140/83 87 L 09/27/19 05:16 113 H 94 09/27/19 05:11 118 H 95 09/27/19 05:06 127 H 93 09/27/19 05:03 117/71 09/27/19 05:01 118 H 94 09/27/19 04:56 103 H 93 09/27/19 04:51 115 H 96 09/27/19 04:48 97 H 116/61 09/27/19 04:46 106 H 93 09/27/19 04:41 139 H 95 09/27/19 04:36 131 H 95 09/27/19 04:34 130 H 143/65 H 09/27/19 04:31 141 H 95 09/27/19 04:28 100.2 F H 20 09/27/19 04:27 127 H 89 L 09/27/19 04:26 125 H 94 09/27/19 04:21 106 H 92 09/27/19 04:19 104 H 119/61 09/27/19 04:16 105 H 92 09/27/19 04:11 105 H 91 09/27/19 04:06 103 H 92 09/27/19 04:03 105 H 18 121/69 09/27/19 04:01 104 H 91 09/27/19 03:56 104 H 94 09/27/19 03:51 115 H 95 09/27/19 03:49 117 H 18 121/67 09/27/19 03:46 131 H 96 09/27/19 03:41 130 H 96 09/27/19 03:36 101 H 92 09/27/19 03:34 106 H 133/69 09/27/19 03:31 101 H 91 09/27/19 03:26 101 H 91 09/27/19 03:21 103 H 92 09/27/19 03:18 98 H 119/70 09/27/19 03:16 104 H 91 09/27/19 03:11 103 H 92 09/27/19 03:06 99 H 92 09/27/19 03:04 101 H 126/69 09/27/19 03:01 101 H 92 09/27/19 02:56 101 H 92 09/27/19 02:51 115 H 93 09/27/19 02:48 110 H 128/72 09/27/19 02:46 114 H 92 09/27/19 02:41 110 H 91 09/27/19 02:36 100.4 F H 115 H 18 114/63 93 09/27/19 02:35 115 H 89/56 L 09/27/19 02:31 109 H 92 09/27/19 02:26 111 H 92 09/27/19 02:21 107 H 92 09/27/19 02:20 110 H 100/54 L 09/27/19 02:16 108 H 92 09/27/19 02:11 110 H 93 09/27/19 02:06 116 H 94 09/27/19 02:05 121 H 125/58 L 09/27/19 02:03 18 09/27/19 02:01 129 H 94 09/27/19 01:56 125 H 94 02/15/20 01:51 117 H 95 09/27/19 01:48 123 H 126/63 09/27/19 01:46 120 H 95 09/27/19 01:41 141 H 95 09/27/19 01:36 121 H 93 09/27/19 01:31 116 H 95 09/27/19 01:26 111 H 93 09/27/19 01:21 110 H 93 09/27/19 01:18 117 H 135/82 09/27/19 01:16 114 H 94 09/27/19 01:11 115 H 94 09/27/19 01:06 121 H 94 09/27/19 01:05 114 H 18 132/89 09/27/19 01:01 111 H 94 09/27/19 00:56 113 H 94 09/27/19 00:51 111 H 94 09/27/19 00:49 99.1 F 18 09/27/19 00:48 127 H 127/71 09/27/19 00:46 125 H 94 09/27/19 00:41 127 H 94 09/27/19 00:36 110 H 93 09/27/19 00:33 111 H 117/67 09/27/19 00:31 113 H 93 09/27/19 00:26 111 H 93 09/27/19 00:21 114 H 94 09/27/19 00:18 109 H 18 116/59 L 09/27/19 00:16 111 H 94 09/27/19 00:11 112 H 94 09/27/19 00:06 109 H 93 09/27/19 00:03 110 H 138/85 09/27/19 00:01 117 H 94 09/26/19 23:56 115 H 94 09/26/19 23:51 115 H 94 09/26/19 23:48 114 H 130/76 09/26/19 23:46 115 H 94 09/26/19 23:41 116 H 96 09/26/19 23:36 121 H 95 09/26/19 23:34 116 H 124/70 09/26/19 23:31 115 H 94 09/26/19 23:26 118 H 94 09/26/19 23:21 117 H 95 09/26/19 23:16 115 H 96 09/26/19 23:11 120 H 94 09/26/19 23:06 125 H 92 09/26/19 23:04 110 H 129/78 09/26/19 23:01 109 H 95 09/26/19 23:00 99.0 F 18 09/26/19 22:56 116 H 96 09/26/19 22:51 112 H 95 09/26/19 22:48 122 H 133/84 09/26/19 22:46 117 H 95 PG Care Time/CCT Total # of Minutes Spent Total Time Spent with Patient: Total time spent is greater than 50% in implementation project coordinator rdination of care (as documented) at patient's floor/unit and/or counseling patient: Coding Level of Care Code None Diagnoses Failure to progress in second stage of labor O62.2
[2019-09-27] MEDS ORDERED: LACTATED RINGER'S 1,000 ML IV SCH ×2 (10:45→14:38)
[2019-09-27] MEDS ORDERED: CEFAZOLIN 3000MG 65 ML IV SCH (10:45)
[2019-09-27] MEDS ORDERED: CITRIC ACID/SODIUM CITRATE 15 ML UDC PO SCH (10:50)
[2019-09-27] MEDS ORDERED: LIDOCAINE/EPINEPHRINE 2% 1:200,000 20 ML SDV ONE (10:52)
[2019-09-27] MEDS ORDERED: OXYTOCIN 10 UNITS/ML VIAL ONE ×2 (10:53→12:29)
[2019-09-27] MEDS ORDERED: fentaNYL citrate 100 MCG/2 ML VIAL ONE (10:53)
[2019-09-27] MEDS ORDERED: CARBOPROST TROMETHAMINE 250 MCG/ML AMPUL ONE (11:40)
[2019-09-27] MEDS ORDERED: MoRPHine SULFATE PF 1 MG/ML 10 ML AMP/VIAL ONE (11:48)
[2019-09-27] MEDS ORDERED: DEXAMETHASONE SOD INJ 4 MG/ML VIAL ONE (12:04)
[2019-09-27] MEDS ORDERED: ONDANSETRON INJ 2 MG/ML 2 ML VIAL ONE (12:04)
[2019-09-27] MEDS ORDERED: PHENYLEPHRINE 100MCG/ML 5ML SYR ONE (12:04)
[2019-09-27 12:18] LABS: Base Excess Cord Arterial Bld 20.8 mEq/L (-9-1.8); CO2 Cord Arterial Blood 60 mmHg (39.1-73.5); HCO3 Cord Arterial Blood 48 mmol/L (19.7-28.5); PO2 Cord Arterial Blood 19 mmHg (4.1-31.7); pH Cord Arterial Blood 7.51 (7.1-7.38)
[2019-09-27 12:19] LABS: Oxygen Sat Cord Arterial Blood < 60.0 % (<60)
[2019-09-27 12:22] LABS: Base Excess Cord Venous Blood -1.4 mEq/L (-7.7-1.9); Cord Venous Blood HCO3 24 mmol/L (18.4-26.8); Cord Venous Blood PCO2 43 mmHg (30.4-57.2); Cord Venous Blood PO2 37 mmHg (14.1-43.3); Cord Venous Blood pH 7.36 (7.20-7.44)
[2019-09-27] MEDS ORDERED: PROMETHAZINE HCL INJ 25 MG/ML 1 ML VIAL ONE (12:24)
--- NOTE | 2019-09-27 12:32 | Operative Report ---
PG Post Operative Report Pre & Post Diagnosis Operation Date: 09/27/19 11:15 Pre-Op Diagnosis: Failure to Progress Post-Op Diagnosis: Same; Delivery of a live male child at 1127 I identified the patient and participated in the time-out.: Yes Procedure Operation Date: 09/27/19 11:15 Actual Procedures p Section in LD - Donny Bowen MD, FACOG Surgeon Donny Bowen MD, FACOG Dog Track Kennel Manager none Estimated Blood Loss 800 Findings Consistent with Post-Op Diagnosis Specimens cord blood, gases Description of Procedure Regional anesthetic was given by anesthesia patient had a Armendariz catheter inserted by nursing patient was prepped and draped in supine position with a leftward tilt preoperative antibiotics were given timeout performed Pickups with teeth were used to test the skin site and it was found adequate for incision scalpel used to make a Pfannenstiel incision cutting down through subcutaneous fat through the fascia fascia was then dissected laterally with the curved Montalvo's fascia was released superiorly and inferiorly from the rectus muscles with the curved Montalvo scissors, rectus muscle split peritoneal cavity entered in a superior location. Opening enlarged to allow exposure bladder retractor placed Metzenbaums used to dissect away the bladder flap low segment transverse incision made on the uterus with scalpel entry was done bluntly with the clay press operator's finger hysterotomy incision extended with the clay press operator's finger in the usual fashion baby was delivered then by flexion of the head and pressure from the assistant store manager sales on the abdomen mouth and then nares were suctioned baby was then delivered fully without difficulty without excessive force live vigorous cord clamped and cut cord gases obtained cord blood obtained placenta removed manually within ensured all placenta removed with a moist lap sponge uterus exteriorized IV Pitocin had been started by anesthesia and uterine tone initially was poor Pitocin was increased and then Hemabate injected into the uterus with gentle massage as well the uterine tone improved. Yin's were used to grasp the edges of the uterine incision we carefully identified these as the layers were thin, the uterus was closed in 2 layers first layer and 0 Monocryl running locked second layer 0 Monocryl nonlocked after generous irrigation and suction of the cul-de-sac and bladder flap regions hemostasis was excellent uterus was placed back in the peritoneal cavity and hemostasis was excellent rectus muscles were inspected and found to be dry fascia closed with 0 Vicryl subcutaneous fat closed with 3-0 Vicryl prior to this subcutaneous fat was irrigated skin closed with 4-0 subcuticular Monocryl incision Steri-Stripped urine was clear at the end of the procedure Note we did give Hemabate intraoperatively into the uterus we ensured nonvascular injection and this was due to I attest to the content of the Intraoperative Record and any orders documented therein. Any exceptions are noted below.
[2019-09-27] MEDS ORDERED: PROMETHAZINE HCL 25 MG in SODIUM CHLORIDE 0.9% 50 ML IV PRN (12:58)
[2019-09-27] MEDS ORDERED: DiphenhydrAMINE HCL 50 MG/ML VIAL IV PRN (12:58)
[2019-09-27] MEDS ORDERED: ONDANSETRON INJ 2 MG/ML 2 ML VIAL IV PRN (12:58)
[2019-09-27] MEDS ORDERED: ePHEDrine sulfate 50 MG/ML AMP IV PRN (12:58)
[2019-09-27] MEDS ORDERED: NALBUPHINE HCL INJ 10 MG/ML AMP IV PRN (12:58)
[2019-09-27] MEDS ORDERED: NALOXONE HCL 1 MG in SODIUM CHLORIDE 0.9% 1000ML 1,000 ML IV PRN (12:58)
[2019-09-27] MEDS ORDERED: NALOXONE HCL 0.4 MG/1 ML VIAL/CARP IV PRN (12:58)
[2019-09-27] MEDS ORDERED: NALOXONE HCL 0.08 MG in SYRINGE 1.8 ML IV PRN (12:58)
[2019-09-27] MEDS ORDERED: LACTATED RINGER'S 500 ML IV PRN (12:58)
[2019-09-27] MEDS ORDERED: MoRPHine SULFATE PF 1 MG/ML 10 ML AMP/VIAL EPI ONE (12:58)
--- NOTE | 2019-09-27 12:58 | Anesthesia Procedure Note ---
Date of Service September 27, 2019 Anesthesia Post Epidural Note Vital Signs Vital Signs: Temp Pulse Resp BP Pulse Ox 36.7 C 111 H 20 137/80 97 09/27/19 09:39 09/27/19 11:12 09/27/19 09:39 09/27/19 11:12 09/27/19 11:06 Pain Intensity Lower Abdomen: Pain Intensity: 8 Notes Mental Status: alert / awake / arousable Nausea / Vomiting: adequately controlled Pain: adequately controlled Airway Patency, RR, SpO2: stable & adequate BP & HR: stable & adequate Hydration State: stable & adequate Neuraxial Anesthesia: was administered and sensory block is resolving Anesthetic Complications: no major complications apparent Epidural: Removed without complications and With tip intact
[2019-09-27] MEDS ORDERED: DC INTRASPINAL MORPHINE SCH (13:00)
[2019-09-27] MEDS ORDERED: SODIUM CHLORIDE 0.9% 1000ML 1,000 ML IV SCH (13:00)
[2019-09-27] MEDS ORDERED: NO NARCOTICS OR SEDATIVES SCH (13:00)
[2019-09-27] MEDS: KETOROLAC 30 MG/ML VIAL IV PRN ×2 (13:53→23:14)
[2019-09-27] MEDS ORDERED: SUPERCREAM 0.870% 15 GM JAR EXT PRN (14:38)
[2019-09-27] MEDS ORDERED: DIPHTHERIA/TETANUS/PERTUSSIS 0.5 ML SYR/VIAL IM ONE (14:38)
[2019-09-27] MEDS ORDERED: BENZOCAINE 20% AER SPR 82.5 GM CAN EXT PRN (14:38)
[2019-09-27] MEDS ORDERED: SENNA 8.6 MG TAB PO PRN (14:38)
[2019-09-27] MEDS ORDERED: HYDROCORTISONE ACETATE 25 MG SUPP PR PRN (14:38)
[2019-09-27] MEDS ORDERED: MAGNESIUM HYDROXIDE SUSP 30 ML UDC PO PRN (14:38)
[2019-09-27] MEDS: OXYTOCIN 40 UNITS in LACTATED RINGER'S 1,000 ML IV SCH ×2 (14:57→23:50)
--- NOTE | 2019-09-27 17:14 | Anesthesiology Progress Note ---
Date of Service September 27, 2019 Anesthesia Post Procedure Vital Signs Vital Signs: Temp Pulse Resp BP Pulse Ox 09/27/19 15:37 112 H 95 09/27/19 15:32 111 H 95 09/27/19 15:27 112 H 95 09/27/19 15:22 95 H 92 09/27/19 15:17 101 H 95 09/27/19 15:12 117 H 95 09/27/19 15:07 111 H 93 09/27/19 15:02 108 H 95 09/27/19 15:00 20 09/27/19 14:57 99 H 93 09/27/19 14:55 106 H 142/70 H 09/27/19 14:52 104 H 94 09/27/19 14:47 107 H 95 09/27/19 14:42 104 H 94 09/27/19 14:37 104 H 94 09/27/19 14:32 115 H 94 09/27/19 14:30 20 09/27/19 14:27 102 H 94 09/27/19 14:25 105 H 128/83 09/27/19 14:22 101 H 94 09/27/19 14:17 105 H 94 09/27/19 14:12 99 H 94 09/27/19 14:07 97 H 120/71 92 09/27/19 14:02 104 H 92 09/27/19 14:00 37.1 C 99 H 18 94 09/27/19 13:57 106 H 132/82 94 09/27/19 13:52 105 H 92 09/27/19 13:47 101 H 127/77 92 09/27/19 13:42 107 H 93 09/27/19 13:40 20 09/27/19 13:37 101 H 131/71 92 09/27/19 13:32 100 H 94 09/27/19 13:30 102 H 20 94 09/27/19 13:27 99 H 123/74 94 09/27/19 13:23 100 H 94 09/27/19 13:22 97 H 96 09/27/19 13:20 18 09/27/19 13:17 94 H 133/77 98 09/27/19 13:12 129 H 96 09/27/19 13:11 110 H 94 09/27/19 13:10 18 09/27/19 13:07 101 H 138/79 97 09/27/19 13:02 100 H 98 09/27/19 13:00 37.6 C H 20 09/27/19 12:58 105 H 128/70 09/27/19 12:57 121 H 100 09/27/19 11:12 111 H 137/80 09/27/19 11:09 123 H 144/89 H 09/27/19 11:07 121 H 156/96 H 09/27/19 11:06 123 H 97 09/27/19 10:32 128 H 90 09/27/19 10:28 139 H 83 L 09/27/19 10:27 130 H 92 09/27/19 10:23 128 H 88 L 09/27/19 10:22 129 H 90 09/27/19 10:17 126 H 89 L 09/27/19 10:12 128 H 89 L 09/27/19 10:11 143 H 86 L 09/27/19 10:07 123 H 91 09/27/19 10:06 127 H 87 L 09/27/19 10:02 127 H 89 L 09/27/19 10:00 121 H 89 L 09/27/19 09:58 118 H 143/87 H 09/27/19 09:57 118 H 87 L 09/27/19 09:55 114 H 89 L 09/27/19 09:52 139 H 92 09/27/19 09:50 128 H 84 L 09/27/19 09:47 125 H 85 L 09/27/19 09:43 117 H 89 L 09/27/19 09:42 132 H 89 L 09/27/19 09:39 36.7 C 20 09/27/19 09:37 125 H 89 L 09/27/19 09:31 139 H 92 09/27/19 09:26 131 H 91 09/27/19 09:21 119 H 85 L 09/27/19 09:16 119 H 81 L 09/27/19 09:13 136 H 89 L 09/27/19 09:11 122 H 86 L 09/27/19 09:06 123 H 87 L 09/27/19 09:01 132 H 91 09/27/19 08:56 143 H 92 09/27/19 08:55 116 H 88 L 09/27/19 08:51 120 H 84 L 09/27/19 08:50 131 H 89 L 02/15/20 08:48 125 H 124/66 09/27/19 08:46 128 H 86 L 09/27/19 08:45 116 H 86 L 09/27/19 08:41 129 H 90 09/27/19 08:36 118 H 87 L 09/27/19 08:32 128 H 89 L 09/27/19 08:31 131 H 91 09/27/19 08:27 121 H 87 L 09/27/19 08:26 142 H 82 L 09/27/19 08:21 129 H 92 09/27/19 08:16 123 H 95 09/27/19 08:11 101 H 87 L 09/27/19 08:06 105 H 88 L 09/27/19 08:03 98 H 126/71 09/27/19 08:01 95 H 90 09/27/19 07:56 117 H 90 09/27/19 07:54 103 H 88 L 09/27/19 07:51 103 H 90 09/27/19 07:49 104 H 89 L 09/27/19 07:48 109 H 136/73 09/27/19 07:46 109 H 88 L 09/27/19 07:43 120 H 89 L 09/27/19 07:41 117 H 94 09/27/19 07:36 149 H 91 09/27/19 07:34 116 H 139/70 09/27/19 07:31 105 H 93 09/27/19 07:26 106 H 94 09/27/19 07:21 130 H 95 09/27/19 07:18 111 H 126/72 09/27/19 07:16 109 H 93 09/27/19 07:11 116 H 93 09/27/19 07:06 116 H 95 09/27/19 07:04 36.9 C 110 H 20 133/78 09/27/19 07:01 112 H 92 09/27/19 06:56 108 H 92 09/27/19 06:51 109 H 93 09/27/19 06:48 104 H 20 117/66 09/27/19 06:46 114 H 93 09/27/19 06:42 110 H 108/65 09/27/19 06:41 111 H 94 09/27/19 06:36 123 H 94 09/27/19 06:33 129 H 140/98 84 L 02/15/20 06:31 99 H 91 09/27/19 06:26 107 H 94 09/27/19 06:25 120 H 86 L 09/27/19 06:21 99 H 93 09/27/19 06:18 96 H 115/59 L 09/27/19 06:16 113 H 92 09/27/19 06:14 38.2 C H 20 09/27/19 06:11 98 H 90 09/27/19 06:09 98 H 89 L 09/27/19 06:06 111 H 94 09/27/19 06:04 114 H 126/69 86 L 09/27/19 06:01 110 H 93 09/27/19 05:57 103 H 89 L 09/27/19 05:56 108 H 90 09/27/19 05:51 112 H 94 09/27/19 05:49 115 H 137/76 09/27/19 05:46 118 H 93 09/27/19 05:41 119 H 92 09/27/19 05:36 118 H 94 09/27/19 05:33 112 H 139/81 82 L 09/27/19 05:31 105 H 93 09/27/19 05:26 105 H 93 09/27/19 05:21 106 H 93 09/27/19 05:18 105 H 140/83 87 L 09/27/19 05:16 113 H 94 09/27/19 05:11 118 H 95 09/27/19 05:06 127 H 93 09/27/19 05:03 117/71 09/27/19 05:01 118 H 94 09/27/19 04:56 103 H 93 09/27/19 04:51 115 H 96 09/27/19 04:48 97 H 116/61 09/27/19 04:46 106 H 93 09/27/19 04:41 139 H 95 09/27/19 04:36 131 H 95 09/27/19 04:34 130 H 143/65 H 09/27/19 04:31 141 H 95 09/27/19 04:28 37.9 C H 20 09/27/19 04:27 127 H 89 L 09/27/19 04:26 125 H 94 09/27/19 04:21 106 H 92 09/27/19 04:19 104 H 119/61 09/27/19 04:16 105 H 92 09/27/19 04:11 105 H 91 09/27/19 04:06 103 H 92 09/27/19 04:03 105 H 18 121/69 09/27/19 04:01 104 H 91 09/27/19 03:56 104 H 94 09/27/19 03:51 115 H 95 09/27/19 03:49 117 H 18 121/67 09/27/19 03:46 131 H 96 09/27/19 03:41 130 H 96 09/27/19 03:36 101 H 92 09/27/19 03:34 106 H 133/69 09/27/19 03:31 101 H 91 09/27/19 03:26 101 H 91 09/27/19 03:21 103 H 92 09/27/19 03:18 98 H 119/70 09/27/19 03:16 104 H 91 09/27/19 03:11 103 H 92 09/27/19 03:06 99 H 92 09/27/19 03:04 101 H 126/69 09/27/19 03:01 101 H 92 09/27/19 02:56 101 H 92 09/27/19 02:51 115 H 93 09/27/19 02:48 110 H 128/72 09/27/19 02:46 114 H 92 09/27/19 02:41 110 H 91 09/27/19 02:36 38.0 C H 115 H 18 114/63 93 09/27/19 02:35 115 H 89/56 L 09/27/19 02:31 109 H 92 09/27/19 02:26 111 H 92 09/27/19 02:21 107 H 92 09/27/19 02:20 110 H 100/54 L 09/27/19 02:16 108 H 92 09/27/19 02:11 110 H 93 09/27/19 02:06 116 H 94 09/27/19 02:05 121 H 125/58 L 09/27/19 02:03 18 09/27/19 02:01 129 H 94 09/27/19 01:56 125 H 94 09/27/19 01:51 117 H 95 09/27/19 01:48 123 H 126/63 09/27/19 01:46 120 H 95 09/27/19 01:41 141 H 95 09/27/19 01:36 121 H 93 09/27/19 01:31 116 H 95 09/27/19 01:26 111 H 93 09/27/19 01:21 110 H 93 09/27/19 01:18 117 H 135/82 09/27/19 01:16 114 H 94 09/27/19 01:11 115 H 94 09/27/19 01:06 121 H 94 09/27/19 01:05 114 H 18 132/89 09/27/19 01:01 111 H 94 09/27/19 00:56 113 H 94 09/27/19 00:51 111 H 94 09/27/19 00:49 37.3 C 18 09/27/19 00:48 127 H 127/71 09/27/19 00:46 125 H 94 09/27/19 00:41 127 H 94 09/27/19 00:36 110 H 93 09/27/19 00:33 111 H 117/67 09/27/19 00:31 113 H 93 09/27/19 00:26 111 H 93 09/27/19 00:21 114 H 94 09/27/19 00:18 109 H 18 116/59 L 09/27/19 00:16 111 H 94 09/27/19 00:11 112 H 94 09/27/19 00:06 109 H 93 09/27/19 00:03 110 H 138/85 09/27/19 00:01 117 H 94 09/26/19 23:56 115 H 94 09/26/19 23:51 115 H 94 09/26/19 23:48 114 H 130/76 09/26/19 23:46 115 H 94 09/26/19 23:41 116 H 96 09/26/19 23:36 121 H 95 09/26/19 23:34 116 H 124/70 09/26/19 23:31 115 H 94 09/26/19 23:26 118 H 94 09/26/19 23:21 117 H 95 09/26/19 23:16 115 H 96 09/26/19 23:11 120 H 94 09/26/19 23:06 125 H 92 09/26/19 23:04 110 H 129/78 09/26/19 23:01 109 H 95 09/26/19 23:00 37.2 C 18 09/26/19 22:56 116 H 96 09/26/19 22:51 112 H 95 09/26/19 22:48 122 H 133/84 09/26/19 22:46 117 H 95 09/26/19 22:41 129 H 96 09/26/19 22:36 119 H 98 09/26/19 22:33 109 H 139/76 09/26/19 22:31 109 H 95 09/26/19 22:30 20 09/26/19 22:26 135 H 97 09/26/19 22:21 128 H 95 09/26/19 22:18 122 H 86 L 09/26/19 22:16 122 H 97 09/26/19 22:11 115 H 94 09/26/19 22:06 117 H 96 09/26/19 22:01 135 H 156/97 H 94 09/26/19 22:00 36.8 C 120 H 20 153/116 H 09/26/19 21:58 117 H 131/88 09/26/19 21:56 115 H 128/80 93 09/26/19 21:53 104 H 129/82 09/26/19 21:51 118 H 92 09/26/19 21:46 107 H 95 09/26/19 21:41 113 H 95 09/26/19 21:37 106 H 124/74 09/26/19 21:36 97 H 93 09/26/19 21:35 100 H 135/82 09/26/19 21:31 101 H 94 09/26/19 21:26 100 H 94 09/26/19 21:21 116 H 95 09/26/19 21:16 112 H 97 09/26/19 21:11 99 H 96 09/26/19 21:08 102 H 134/70 09/26/19 21:06 110 H 95 09/26/19 21:01 108 H 97 09/26/19 21:00 18 09/26/19 20:56 101 H 95 09/26/19 20:54 99 H 134/83 09/26/19 20:51 102 H 95 09/26/19 20:46 104 H 94 09/26/19 20:41 106 H 95 09/26/19 20:39 103 H 127/75 09/26/19 20:36 107 H 96 02/14/20 20:31 102 H 97 20 20:30 20 0220 20:26 97 H 97 20 20:24 104 H 156/77 H 20 20:21 101 H 97 0220 20:16 97 H 96 20 20:11 98 H 95 0220 20:09 104 H 137/80 0220 20:06 107 H 96 09/26/19 20:01 96 H 97 09/26/19 20:00 18 09/26/19 19:56 93 H 98 09/26/19 19:54 90 137/81 0220 19:51 93 H 97 09/26/19 19:46 96 H 95 09/26/19 19:41 83 96 09/26/19 19:39 88 134/78 09/26/19 19:36 95 H 96 09/26/19 19:31 95 H 96 20 19:30 20 09/26/19 19:26 92 H 96 09/26/19 19:22 89 138/86 09/26/19 19:21 91 H 97 09/26/19 19:16 82 97 09/26/19 19:11 87 97 09/26/19 19:08 85 136/79 09/26/19 19:06 106 H 97 09/26/19 19:01 89 94 09/26/19 19:00 18 09/26/19 18:56 90 98 20 18:54 92 H 129/74 20 18:51 97 H 99 09/26/19 18:46 104 H 98 09/26/19 18:41 109 H 100 0220 18:38 134/78 20 18:36 103 H 96 0220 18:34 104 H 129/79 0220 18:31 108 H 97 20 18:26 98 H 97 09/26/19 18:21 98 H 95 20 18:17 102 H 110/64 20 18:16 105 H 95 021420 18:15 103 H 116/61 20 18:13 102 H 110/63 20 18:11 98 H 129/71 94 09/26/19 18:09 104 H 126/65 09/26/19 18:07 101 H 133/63 09/26/19 18:06 106 H 94 09/26/19 18:05 99 H 120/71 09/26/19 18:03 98 H 124/74 09/26/19 18:01 111 H 95 09/26/19 18:00 36.6 C 111 H 127/72 09/26/19 17:57 115 H 139/89 09/26/19 17:55 112 H 95 09/26/19 17:50 119 H 94 09/26/19 17:48 132 H 87 L 09/26/19 17:45 112 H 94 09/26/19 17:40 112 H 94 09/26/19 17:35 113 H 96 09/26/19 17:26 105 H 99 09/26/19 17:25 106 H 86 L 09/26/19 17:21 109 H 100 09/26/19 17:16 157 H 79 L Pain Intensity Lower Abdomen: Pain Intensity: 4 Transfer of Care Handoff Completed per policy Notes Mental Status: alert / awake / arousable Patient Amnestic to Procedure: Yes Nausea / Vomiting: adequately controlled Pain: adequately controlled Airway Patency, RR, SpO2: stable & adequate BP & HR: stable & adequate Hydration State: stable & adequate Anesthetic Complications: no major complications apparent
[2019-09-27] MEDS: SIMETHICONE 80 MG CHEW PO SCH ×2 (17:56→21:11)
[2019-09-27] MEDS: DOCUSATE SODIUM 100 MG CAP PO SCH (21:10)
[2019-09-28 06:52] LABS: Basophils # (auto) 0.01 K/uL (0-0.2); Basophils % (auto) 0.1 %; Eosinophils # (auto) 0.06 K/uL (0-0.5); Eosinophils % (auto) 0.4 %; Hematocrit (blood only) 25.8 % (37-47); Hemoglobin 8.9 g/dL (12.0-16.0); Immature Granulocytes # (auto) 0.06 K/uL (0.00-0.02); Immature Granulocytes % (auto) 0.4 %; Lymphocytes # (auto) 1.12 K/uL (1.2-3.4); Lymphocytes % (auto) 7.6 %; Mean Corpuscular Hemoglobin 31.2 pg (25-34); Mean Corpuscular Hgb Conc 34.5 g/dL (32-36); Mean Corpuscular Volume 90.5 fL (80-100); Mean Platelet Volume 11.4 fL (7.4-10.4); Monocytes % (auto) 7.5 %; Platelet Count 123 K/uL (130-400); RDW Coefficient of Variation 13.8 % (11.5-14.5); RDW Standard Deviation 46.2 fL (36.4-46.3); Red Blood Count 2.85 M/uL (4.2-5.4); White Blood Count 14.65 K/uL (4.8-10.8)
[2019-09-28] MEDS ORDERED: DiphenhydrAMINE HCL 50 MG/ML VIAL IV PRN (06:58)
[2019-09-28] MEDS ORDERED: KETOROLAC 30 MG/ML VIAL IV PRN (06:58)
[2019-09-28] MEDS ORDERED: ONDANSETRON INJ 2 MG/ML 2 ML VIAL IV PRN (06:58)
[2019-09-28] MEDS ORDERED: MEPERIDINE HCL 50 MG/ML CARP IV PRN (06:58)
[2019-09-28] MEDS ORDERED: PROMETHAZINE HCL 25 MG in SODIUM CHLORIDE 0.9% 50 ML IV PRN (06:58)
--- NOTE | 2019-09-28 08:13 | Obstetrical Progress Note ---
Date of Service September 28, 2019 Assessment & Plan (1) state: continue current care. POD #1 Subjective Voiding: espinosa catheter in place Passing Gas:: No Diet Tolerance:: clear liquids Lochia:: Small Feeding Type:: breast feeding Current Pain Level(1-10): [address] Physical Exam Constitutional WD/WN, vitals as above Gastrointestinal (Abdomen) normal bowel sounds, soft, nontender, no hepatosplenomegaly Incision CDI Results & Data Vital Signs (Past 12 Hours) Vital Signs Temp Pulse Resp BP Pulse Ox 09/28/19 05:45 17 97 09/28/19 04:45 17 96 09/28/19 04:30 98.2 F 111 H 17 123/69 96 09/28/19 03:30 18 100 09/28/19 02:30 18 98 09/28/19 01:20 18 97 09/28/19 00:15 20 100 09/27/19 23:15 98.2 F 85 20 134/85 98 09/27/19 22:42 18 97 09/27/19 21:47 18 97 09/27/19 20:50 18 98
[2019-09-28] MEDS: IBUPROFEN 600 MG TAB PO PRN ×3 (08:51→17:05)
[2019-09-28] MEDS: PRENATAL VITAMIN 1 TAB PO SCH (08:52)
[2019-09-28] MEDS: DOCUSATE SODIUM 100 MG CAP PO SCH ×2 (08:52→20:07)
[2019-09-28] MEDS: SIMETHICONE 80 MG CHEW PO SCH ×4 (08:52→20:07)
[2019-09-28] MEDS: ACETAMINOPHEN 325 MG TAB PO PRN ×2 (10:21→17:03)
[2019-09-28] MEDS: FERROUS SULFATE 325 MG TAB PO SCH (14:42)
[2019-09-28] MEDS ORDERED: bisacodyL 5 MG TABEC PO SCH (20:00)
[2019-09-29] MEDS: OXYCODONE/ACETAMINOPHEN 5mg/325mg TAB PO PRN ×3 (01:04→22:25)
[2019-09-29] MEDS: IBUPROFEN 600 MG TAB PO PRN ×5 (01:05→22:25)
[2019-09-29] MEDS: ACETAMINOPHEN 325 MG TAB PO PRN (04:49)
[2019-09-29 06:08] LABS: Hematocrit (blood only) 23.8 % (37-47); Hemoglobin 8.2 g/dL (12.0-16.0)
--- NOTE | 2019-09-29 06:32 | Obstetrical Progress Note ---
Date of Service <Aries Mckeon DO - Last Filed: 09/29/19 06:32> September 29, 2019 Assessment & Plan <Aries Mckeon DO - Last Filed: 09/29/19 06:32> (1) state: -POD#2 - Vitals reviewed, WNL (Tmax 36.9) - GBS -, Blood Type A+ - Hgb this AM 8.2, will continue to monitor for signs of hemodynamic instability. - Clinically stable. - Feels well today. Eating well, voiding well, ambulating well. - Pain well controlled. - Routine post care - After discharge will have [address] Bowen. Day #:: 2 Subjective <Aries Mckeon DO - Last Filed: 09/29/19 06:32> Ambulation: ambulating normally Voiding: no voiding problems Passing Gas:: Yes Diet Tolerance:: regular diet Lochia:: Small Current Pain Level(1-10): 1 (improved with analgesics) Patient is a 29 POD#2. Patient states that she is doing well this morning and that her pain is well controlled while laying down. She does note some increased discomfort with movement, but that she is trying not to take narcotic analgesics. She has no complaints at this point in time. Constitutional: no fever and no chills Respiratory: no cough, no dyspnea and no wheezing Cardiovascular: + edema; no chest pain, no dyspnea, no dyspnea on exertion and no calf pain Breast: no breast pain Gastrointestinal: no abdominal pain, no nausea and no vomiting Genitourinary (female): no dysuria Neurologic: no headache(s) Physical Exam <DO Beto Duffy Last Filed: 09/29/19 06:32> Constitutional WD/WN, vitals as above Respiratory normal respiratory effort, lungs clear to auscultation Cardiovascular Rate/Rhythm: regular rate and regular rhythm Heart Sounds: normal S1 and normal S2; no click, no gallop, no murmur and no cardiac rub Extremities: + edema (+1); no calf tenderness Gastrointestinal (Abdomen) Inspection/Auscultation: abdomen normal to inspection, normal bowel sounds and + abdominal surgical incision (Clean and Dry, No Pus noted. ) Percussion/Palpation: + abdomen tender (TTP in lower quadrants, appropriate. ) and abdomen soft Genitourinary OB Exam Abdomen: + fundal height Fundus: + firm and + relation to umbilicus (2cm below); not tender and not boggy Results & Data <Aries Mckeon DO - Last Filed: 09/29/19 06:32> Vital Signs (Past 12 Hours) Vital Signs Temp Pulse Resp BP 09/29/19 01:00 36.5 C 105 H 18 125/83 <Donny Bowen MD, FACOG - Last Filed: 09/29/19 06:52> Co-Signing Physician Notes Resident Physician Supervision Note: I was present with Dr. Mckeon during the history and exam. I discussed the case with the resident and agree with the findings and plan as documented in the note. Any exceptions or clarifications are listed here: [None] Documented By: Donny Bowen MD, FACOG Resident Activity Tracking <Aries Mckeon DO - Last Filed: 09/29/19 06:32> Resident Involvement: Resident Care Provided Care Provided: OB Delivery
[2019-09-29] MEDS: SIMETHICONE 80 MG CHEW PO SCH ×4 (08:26→20:33)
[2019-09-29] MEDS: PRENATAL VITAMIN 1 TAB PO SCH (08:26)
[2019-09-29] MEDS: DOCUSATE SODIUM 100 MG CAP PO SCH ×2 (08:26→20:33)
[2019-09-29] MEDS: FERROUS SULFATE 325 MG TAB PO SCH (08:26)
[2019-09-29] MEDS ORDERED: bisacodyL 10 MG SUPP PR PRN (12:26)
[2019-09-29] MEDS ORDERED: CALCIUM CARBONATE 500 MG CHEWABLE TAB PO PRN (13:29)
[2019-09-29] MEDS ORDERED: CALCIUM CARBONATE 500 MG CHEWABLE TAB ONE (13:51)
[2019-09-30] MEDS: IBUPROFEN 600 MG TAB PO PRN ×2 (02:23→08:25)
[2019-09-30] MEDS: OXYCODONE/ACETAMINOPHEN 5mg/325mg TAB PO PRN (02:23)
--- NOTE | 2019-09-30 06:29 | Obstetrical Progress Note ---
Date of Service <Aries Mckeon DO - Last Filed: 09/30/19 06:29> September 30, 2019 Assessment & Plan <Aries Mckeon DO - Last Filed: 09/30/19 06:29> (1) state: -POD#3 - Vitals reviewed, WNL (Tmax 36.8) - GBS -, Blood Type A+ - Clinically stable. - Feels well today. Eating well, voiding well, ambulating well. - Pain well controlled. - Routine post care - After discharge will have [address] Bowen. Day #:: 3 Subjective <Aries HughesnDO - Last Filed: 09/30/19 06:29> Ambulation: ambulating normally Voiding: no voiding problems Passing Gas:: Yes Diet Tolerance:: regular diet Lochia:: Small Feeding Type:: bottle feeding Current Pain Level(1-10): 1 (improved with analgesics) Patient is a 29 POD#3. Patient states that she is doing well this morning and that her pain is well controlled. She has no complaints at this point in time. Constitutional: no fever and no chills Respiratory: no cough, no dyspnea and no wheezing Cardiovascular: + edema; no chest pain, no dyspnea, no dyspnea on exertion and no calf pain Breast: no breast pain Gastrointestinal: no abdominal pain, no nausea and no vomiting Genitourinary (female): no dysuria Neurologic: no headache(s) Physical Exam <DO Beto Duffy Last Filed: 09/30/19 06:29> Constitutional WD/WN, vitals as above Respiratory normal respiratory effort, lungs clear to auscultation Cardiovascular Rate/Rhythm: regular rate and regular rhythm Heart Sounds: normal S1 and normal S2; no click, no gallop, no murmur and no cardiac rub Extremities: no calf tenderness and no edema Gastrointestinal (Abdomen) Inspection/Auscultation: abdomen normal to inspection, normal bowel sounds and + abdominal surgical incision (Clean and Dry, No Pus noted. ) Percussion/Palpation: abdomen soft; abdomen nontender Genitourinary OB Exam Abdomen: + fundal height Fundus: + firm and + relation to umbilicus (2cm below); not tender and not boggy Results & Data <Aries Hughesjefferson DO Pérez Last Filed: 09/30/19 06:29> Vital Signs (Past 12 Hours) Vital Signs Temp Pulse Resp BP 09/29/19 23:30 36.6 C 92 H 18 125/86 <Jac Bernabe MD - Last Filed: 09/30/19 08:21> Co-Signing Physician Notes Patient seen and evaluated and agree with the above findings and plan. Stable for discharge. Resident Activity Tracking <Aries Mckeon DO - Last Filed: 09/30/19 06:29> Resident Involvement: Resident Care Provided Care Provided: OB Delivery
[2019-09-30] MEDS: FERROUS SULFATE 325 MG TAB PO SCH (08:25)
[2019-09-30] MEDS: PRENATAL VITAMIN 1 TAB PO SCH (08:25)
[2019-09-30] MEDS: SIMETHICONE 80 MG CHEW PO SCH (08:25)
[2019-09-30] MEDS: DOCUSATE SODIUM 100 MG CAP PO SCH (08:25)
--- NOTE | 2019-10-01 16:44 | Discharge Summary ---
Date of Service October 01, 2019 Admission HPI Per Admitting Provider at 40W 0D by certain LMP 12/20/18 presenting today for IOL. Patient notes that she has GDM and has been taking insulin throughout the . She notes that her sugars have been well controlled on the insulin and that her most recent check this morning around 6AM was blood sugar 59, she shortly had some eggs afterwards. She denies any complications with the current otherwise and has been attending OB appointments appropriately. She has been taking her insulin, prenatals, and Zofran as needed for nausea. She notes movement and minimal contractions (one every 1/2 hour for a few seconds). She denies any gush of fluid, but does note some spotting which she associates with having her cervix checked the day prior. Labs -Blood type: A+ -Antibody screen: Negative -H.9 -Hct: 37.4 -Wbc: 9.23 -Plt: 165 -Rubella: Immune -VDRL/RPR: Nonreactive -Gonorrhea: Not detected -Chlamydia: Not detected -HIV: Negative -HbSAg: Negative -GBS: Negative -Glucose tolerance x 2: 1hr GTT 165, no 2hr conducted. Admission Exam (Per Admitting) Constitutional WD/WN, vitals as above Gastrointestinal (Abdomen) normal bowel sounds, soft, nontender, no hepatosplenomegaly Discharge Data Consultations 09/26/19 10:17 Consult Anesthesiology Stat Procedures Performed Operation Date: 09/27/19 11:15 Actual Procedures p Section in - J. Dajuan Bowen MD, [facility] Course (1) Failure to progress in second stage of labor: POS #3 from FTP C/S after long induction process Assessed by team on day 3 and met criteria Postoperative from section patient meets discharge criteria as she is ambulating well tolerating an oral diet has minimal bleeding and no extremity pain. Discharge instructions were reviewed and prescriptions were sent to her pharmacy of choice patient advised to call with any concerns and follow-up in the office discussed Fe for Hb 8.2 (2) state: Coding Level of Care Code None Diagnoses Failure to progress in second stage of labor O62.2 state Z39.2
== END 2019-09-30 11:15 | disposition home or self-care (01) | DRG 788 ==
LOC: 4S1 10:05 → 4S2 09-27 16:27

== ENCOUNTER 2019-10-11 08:06 | Inpatient (IN) ==
[2019-10-11] MEDS ORDERED: ACETAMINOPHEN 1,000 MG/100 ML VIAL IV STA (08:45)
[2019-10-11] MEDS ORDERED: SODIUM CHLORIDE 0.9% 1000ML 1,000 ML IV ONE (08:45)
--- NOTE | 2019-10-11 08:57 | Emergency Department Note ---
ED Provider Note CHIEF COMPLAINT: Abdominal and left flank pain, chills HISTORY OF PRESENTING ILLNESS: This is a 29-year-old female who is recently after who presents to the emergency department by private vehicle with complaint of diffuse abdominal pain and left flank pain that started last night. The patient notes that she has had associated chills with low-grade temp of 99.4, not has also had nausea but no vomiting. She states the pain is primarily in her left lower back and radiates around to her left lower abdomen, and she states her whole back and abdomen feels tender. She recently had surgery on 10/07 for evacuation of postoperative incisional abscess collection after a on 09/27, she was discharged with a wound VAC. She states the wound VAC was changed yesterday for the first time and she feels like her pain increased after this. She states that she spoke on the phone with the nurse yesterday and was told that 1 of her cultures was positive but that it should be covered by the antibiotic she is currently taking, amoxicillin and Flagyl. She spoke to [facility] today about her symptoms and was directed to return to the emergency department for further evaluation. She denies any headaches, neck pain or stiffness, chest pain, shortness of breath, dizziness or syncope, diarrhea, or unusual rash. She does note that she has had cloudy urine since yesterday as well, but she denies any dysuria, urinary frequency or urgency. She states that baby is doing well. She is not breast-feeding. REVIEW OF SYSTEMS: A complete 10 point review of systems was reviewed with the patient with pertinent positives and negatives as per history of present illness. All else were negative. PAST MEDICAL HISTORY: Gestational diabetes, , postoperative infection SOCIAL HISTORY: Lives at home with family, she is an occasional smoker ALLERGIES: No known allergies PHYSICAL EXAM: CONSTITUTIONAL: Pleasant and cooperative. Nontoxic-appearing and in no acute distress, but appears to feel unwell. Mildly dehydrated. HEENT: Normocephalic, atraumatic. PERRL, EOMI. Pharynx normal. Tacky mucous membranes NECK: Supple, full active range of motion without discomfort. RESPIRATORY: Clear to auscultation bilaterally with no wheezing, crackles, rhonchi or stridor. Equal expansion bilaterally. CARDIOVASCULAR: Regular rate and rhythm with no murmurs, rubs or gallops. Normal peripheral perfusion. No edema. GASTROINTESTINAL: Diffuse tenderness to palpation throughout, most tender to the left flank and left mid abdomen, no rebound tenderness or guarding. Abdomen is soft and nondistended. No palpable masses or HSM. Bowel sounds present in all quadrants. Bilateral CVA tenderness, left greater than right. There is a wound VAC intact on the left lower abdomen, no redness, warmth or tenderness noted. MUSCULOSKELETAL: Full range of motion of all joints without discomfort. INTEGUMENTARY: No rash or other significant dermatologic conditions noted. NEUROLOGIC: Alert and oriented X 4 with normal affect. Normal strength and sensation in all 4 extremities. Normal speech. Normal gait observed. ED COURSE AND MEDICAL DECISION MAKING: CC: Patient presenting with complaint of abdominal left leg pain, chills DIFFERENTIAL DIAGNOSIS: Includes, but not limited to intra-abdominal abscess, surgical wound infection, UTI, pyelonephritis, ureteral stone, endometritis, bacteremia/sepsis, among others. INTERPRETATION OF LABS: No leukocytosis, mild anemia (appears improved from previous), normal platelets, no significant electrolyte abnormalities, normal renal function, normal liver enzymes and lipase. Lactate within normal limits. UA appears consistent with a possible UTI, urine culture pending. IMAGING: CT SCAN OF THE ABDOMEN AND PELVIS WITH IV CONTRAST CLINICAL HISTORY: Generalized abdominal pain. Recent delivery. COMPARISON STUDY: Ultrasound of the abdominal wall dated 10/06/2019. TECHNIQUE: Following the IV administration of 94 cc of Optiray 320, CT scan of the abdomen and pelvis is performed from the lung bases to the proximal femora. Images are reviewed in the axial, sagittal, and coronal planes. IV contrast was administered without complication. A dose lowering technique was utilized adhering to the principles of ALARA. CT DOSE: 1221.33 mGy.cm FINDINGS: Lung bases: The heart is normal in size and without pericardial effusion. The lung bases are clear. Liver: The contrast-enhanced liver is normal in size, contour, and attenuation. There is no intrahepatic biliary ductal dilatation. The hepatic veins and portal veins are patent. Gallbladder: Unremarkable. Spleen: Normal in size and attenuation. Pancreas: Unremarkable. Adrenal glands: Unremarkable. Kidneys: The contrast enhanced kidneys are normal in size and without hydronephrosis. There is markedly heterogeneous renal perfusion with bilateral striated nephrograms. Abdominal vasculature: The abdominal aorta is normal in course and caliber. Bowel: There is mild colonic diverticulosis without CT evidence of acute diverticulitis. Mild fecal retention is noted throughout the colon. There is no bowel obstruction. The appendix is well-visualized and normal. Peritoneum: There is no intraperitoneal free air or abdominal ascites. There is a fat-containing umbilical hernia. Lymphadenopathy: None. Pelvic viscera: The bladder is distended but otherwise normal as imaged. The post gravid uterus is enlarged and heterogeneous. Foci of gas are present within the endometrial canal. No adnexal lesion is seen. Soft tissues: A ventral incision is noted in the pelvis. There is a small and minimally complex fluid collection identified within the subcutaneous fat of the ventral pelvis. This measures approximately 1.5 x 2.0 x 9 cm as seen on axial image #422. Small foci of gas are present within this collection on image #405. A portion likely extends into the left rectus muscle. No intraperitoneal extension is seen. Skeletal structures: No lytic or blastic lesions are seen. Sclerotic change is noted in the sacroiliac joints. IMPRESSION: 1. There is markedly heterogeneous perfusion of both kidneys with bilateral striated nephrograms. The appearance suggests pyelonephritis. Correlation with clinical findings and urinalysis will be required. 2. The post gravid uterus is enlarged and heterogeneous. Foci of gas are present throughout the endometrial canal. This may represent expected postdelivery/ postoperative findings. Superimposed endometritis would be impossible to exclude and clinical correlation will be essential. 3. A ventral surgical incision is noted in the pelvis. There is a thin gas and fluid containing in the ventral pelvic fat deep to this site as detailed above. This could represent a postoperative seroma/hematoma. The sterility of this collection cannot be assessed by imaging and abscess would be impossible to exclude. Again, clinical correlation will be essential. 4. Mild colonic diverticulosis without CT evidence of acute diverticulitis. 5. Additional findings as above. MEDICATION RECONCILIATION: I attest that I have personally reviewed the patient's current medication list. INITIAL VITAL SIGNS REVIEW: I reviewed the patient's initial vital signs and interpret them as follows: T: Afebrile; BP: Normotensive; HR: Mildly tachycardic; RR: Within normal limits; Pulse Ox: Within normal limits on room air. Blood pressure screening: The patient was found to have normal blood pressure on screening and does not require follow-up for repeat blood pressure check. MDM SUMMARY: Patient was evaluated at bedside, history and physical exam performed. Patient is alert and oriented, no acute distress, resting in the stretcher. She is afebrile and nontoxic-appearing, but does appear mildly dehydrated and appears to feel unwell. Tenderness to palpation throughout the abdomen and flanks bilaterally, left greater than right. CVA tenderness. Orders were placed at bedside for labs, lactate, blood cultures x2, UA and urine culture, IV fluid bolus for hydration, CT abdomen/pelvis with IV contrast to evaluate for abdominal and flank pain. The patient was offered morphine for pain, she preferred no narcotics and was instead given IV Ofirmev. Patient discussed with Dr. Mackenzie, who agrees with my assessment, plan, and disposition. Labs and imaging reviewed as above, labs are fairly unremarkable. She does appear to have a UTI, urine cultures pending. Blood cultures are also pending. CT imaging reviewed as above, notable for bilateral pyelonephritis. 2 g IV Rocephin ordered to treat for suspected pyelonephritis. She was given additional IV Toradol for her pain. A pelvic exam was deferred at this time, the patient is being admitted to the [facility] service by Dr. Bernabe. Patient reassessed multiple times throughout ED stay, she has remained hemodynam ically stable and afebrile, and her pain is improved after the Toradol. The patient was updated on all results and plan for admission, she verbalized understanding was agreeable to this plan. Patient was stable at time of admission. The chart was completed utilizing [employer] Speech voice recognition software. Grammatical errors, random word insertions, pronoun errors, and incomplete sentences are an occasional consequence of this system due to software limitations, ambient noise, and hardware issues. Any formal questions or concerns about the content, text, or information contained within the body of this dictation should be directly addressed to the nurse practitioner for clarification. Impression & Plan Pyelonephritis Past Med/Surg History Social History Preferred Language: Vincentian Communication Ability: Effective Electronic Transaction Implementer Required: No Beliefs That Will Affect Care: None marital status: Single Current Living Situation: Alone and Significant Other Feels Safe at Home: Yes Smoking Status: Current some day smoker Hx Alcohol Use: No Hx Substance Use: No Results & Data Vital Signs Vital Signs - 24 hr 10/11/19 08:11 10/11/19 08:45 10/11/19 10:07 Temperature 36.7 C Temperature Source Oral Pulse Rate 108 H Pulse Rate [Apical] 82 Respiratory Rate 20 18 Respiratory Effort / Characteristics Non-Labored Respiratory Depth Normal Blood Pressure 129/89 Blood Pressure [Left Arm] 114/74 Blood Pressure Mean 102 Blood Pressure Mean [Left Arm] 87 Pulse Oximetry 96 96 97 Oxygen Delivery Method Room Air Room Air Room Air Sepsis Recent Fever Within 48 Hours No Sepsis Action Taken by Nursing No Action Required 10/11/19 12:00 10/11/19 14:00 10/11/19 15:31 Temperature Temperature Source Pulse Rate Pulse Rate [Apical] 90 82 82 Respiratory Rate 18 18 20 Respiratory Effort / Characteristics Respiratory Depth Blood Pressure Blood Pressure [Left Arm] 129/85 114/68 122/72 Blood Pressure Mean Blood Pressure Mean [Left Arm] 99 83 88 Pulse Oximetry 97 97 94 Oxygen Delivery Method Room Air Room Air Room Air Sepsis Recent Fever Within 48 Hours Sepsis Action Taken by Nursing Laboratory Data Result diagrams: 10/11/19 09:00 10/11/19 09:00 Lab Results 10/11/19 10/11/19 10/11/19 Range/Units 09:00 09:00 09:00 WBC 9.48 (4.8-10.8) K/uL RBC 3.56 L (4.2-5.4) M/uL Hgb 10.7 L (12.0-16.0) g/dL Hct 31.5 L (37-47) % MCV 88.5 (80-100) fL MCH 30.1 (25-34) pg MCHC 34.0 (32-36) g/dL RDW Std Deviation 42.0 (36.4-46.3) fL RDW Coeff of Kevin 12.9 (11.5-14.5) % Plt Count 320 (130-400) K/uL MPV 10.2 (7.4-10.4) fL Immature Gran % (Auto) 0.7 % Neut % (Auto) 76.2 % Lymph % (Auto) 13.4 % [place] % (Auto) 7.8 % Eos % (Auto) 1.6 % Baso % (Auto) 0.3 % Immature Gran # (Auto) 0.07 H (0.00-0.02) K/uL Neut # (Auto) 7.22 H (1.4-6.5) K/uL Lymph # (Auto) 1.27 (1.2-3.4) K/uL [place] # (Auto) 0.74 H (0.11-0.59) K/uL Eos # (Auto) 0.15 (0-0.5) K/uL Baso # (Auto) 0.03 (0-0.2) K/uL Sodium 139 (136-145) mmol/L Potassium 4.1 (3.5-5.1) mmol/L Chloride 106 (98-107) mmol/L Carbon Dioxide 25 (21-32) mmol/L Anion Gap 8.0 (3-11) BUN 15 (7-18) mg/dl Creatinine 0.88 (0.6-1.2) mg/dl Est Cr Clr Drug Dosing 100.6 ml/min Est GFR ( Amer) 102.2 Est GFR (Non-Af Amer) 88.2 BUN/Creatinine Ratio 17.3 (10-20) Glucose 112 H (70-99) mg/dl Lactate 0.7 (0.4-2.0) mmol/L Calcium 9.4 (8.5-10.1) mg/dl Total Bilirubin 0.3 (0.2-1) mg/dl AST 19 (15-37) U/L ALT 24 (12-78) U/L Alkaline Phosphatase 101 (45-117) U/L Total Protein 7.6 (6.4-8.2) gm/dl Albumin 3.2 L (3.4-5.0) gm/dl Globulin 4.4 H (2.5-4.0) gm/dl Albumin/Globulin Ratio 0.7 L (0.9-2) Lipase 130 (73-393) U/L Urine Color Urine Appearance (Clear) Urine pH (4.5-7.5) Ur Specific [place] (1.000-1.030) Urine Protein (Negative) Urine Glucose (UA) (Negative) Urine Ketones (Negative) Urine Blood (Negative) Urine Nitrite (Negative) Urine Bilirubin (Negative) Urine Urobilinogen (Negative) Ur Leukocyte Esterase (Negative) Urine WBC (Auto) (0-5) /hpf Urine RBC (Auto) (0-4) /hpf U Hyaline Cast (Auto) (0-5) /lpf U Epithel Cells (Auto) (0-5) /lpf Urine Bacteria (Auto) (Negative) 10/11/19 Range/Units 11:05 WBC (4.8-10.8) K/uL RBC (4.2-5.4) M/uL Hgb (12.0-16.0) g/dL Hct (37-47) % MCV (80-100) fL MCH (25-34) pg MCHC (32-36) g/dL RDW Std Deviation (36.4-46.3) fL RDW Coeff of Kevin (11.5-14.5) % Plt Count (130-400) K/uL MPV (7.4-10.4) fL Immature Gran % (Auto) % Neut % (Auto) % Lymph % (Auto) % [place] % (Auto) % Eos % (Auto) % Baso % (Auto) % Immature Gran # (Auto) (0.00-0.02) K/uL Neut # (Auto) (1.4-6.5) K/uL Lymph # (Auto) (1.2-3.4) K/uL [place] # (Auto) (0.11-0.59) K/uL Eos # (Auto) (0-0.5) K/uL Baso # (Auto) (0-0.2) K/uL Sodium (136-145) mmol/L Potassium (3.5-5.1) mmol/L Chloride (98-107) mmol/L Carbon Dioxide (21-32) mmol/L Anion Gap (3-11) BUN (7-18) mg/dl Creatinine (0.6-1.2) mg/dl Est Cr Clr Drug Dosing ml/min Est GFR ( Amer) Est GFR (Non-Af Amer) BUN/Creatinine Ratio (10-20) Glucose (70-99) mg/dl Lactate (0.4-2.0) mmol/L Calcium (8.5-10.1) mg/dl Total Bilirubin (0.2-1) mg/dl AST (15-37) U/L ALT (12-78) U/L Alkaline Phosphatase (45-117) U/L Total Protein (6.4-8.2) gm/dl Albumin (3.4-5.0) gm/dl Globulin (2.5-4.0) gm/dl Albumin/Globulin Ratio (0.9-2) Lipase (73-393) U/L Urine Color Yellow Urine Appearance Clear (Clear) Urine pH 6.0 (4.5-7.5) Ur Specific [place] 1.011 (1.000-1.030) Urine Protein Negative (Negative) Urine Glucose (UA) Negative (Negative) Urine Ketones Negative (Negative) Urine Blood 3+ H (Negative) Urine Nitrite Negative (Negative) Urine Bilirubin Negative (Negative) Urine Urobilinogen Negative (Negative) Ur Leukocyte Esterase 2+ H (Negative) Urine WBC (Auto) >30 H (0-5) /hpf Urine RBC (Auto) >30 H (0-4) /hpf U Hyaline Cast (Auto) 1-5 (0-5) /lpf U Epithel Cells (Auto) 20-30 H (0-5) /lpf Urine Bacteria (Auto) Negative (Negative) Administered Medications Ioversol (Optiray 320 100ml) 94 ml IV ONCE PRN PRN Reason: Interaction Checking Stop: 10/15/19 10:43 Last Admin: 10/11/19 10:44 Dose: 94 ml Documented by: [id number] Discontinued Medications Sodium Chloride (Nss 1000ml) 1,000 mls @ 999 mls/hr IV .Q1H1M ONE Stop: 10/11/19 09:45 Last Infusion: 10/11/19 10:05 Dose: 0 mls/hr Documented by: [id number] Admin: 10/11/19 09:02 Dose: 999 mls/hr Documented by: [id number] Acetaminophen (Ofirmev) 1,000 mg in 100 mls @ 400 mls/hr IV NOW STA Stop: 10/11/19 08:59 Last Infusion: 10/11/19 09:35 Dose: 0 mls/hr Documented by: [id number] Admin: 10/11/19 09:20 Dose: 400 mls/hr Documented by: [id number] Ceftriaxone Sodium (Rocephin) 2,000 mg in 70 mls @ 140 mls/hr IV NOW STA Stop: 10/11/19 11:54 Last Infusion: 10/11/19 12:22 Dose: 0 mls/hr Documented by: [id number] Admin: 02/29/20 11:51 Dose: 140 mls/hr Documented by: [id number] Ketorolac Tromethamine (Toradol) 15 mg IV NOW STA Stop: 10/11/19 11:01 Last Admin: 10/11/19 11:04 Dose: 15 mg Documented by: [id number] Discharge Plan Visit Data Chief Complaint: Back Injury/Pain Stated Complaint: POST , PAIN IN LOWER LEFT BACK ED Provider: Fuentes Mackenzie ED Midlevel Provider: Colleen Lemus Discharge Problem: Pyelonephritis Patient Disposition: Admitted As Inpatient Condition: Good Forms Stand Alone Forms: [facility] [place] Prescriptions Prescriptions: No Action oxycodone-acetaminophen 5-325 mg tablet 1 tab PO Q6H PRN (Reason: pain) Qty: 10 RF: 0 ibuprofen [Motrin IB] 200 mg Tablet 400 mg PO Q6H PRN (Reason: Pain) RF: 0 PNV [id number] fumarate-FA [] 28 mg iron- 800 mcg Tablet 1 tab PO DAILY RF: 0 amoxicillin-pot clavulanate [Augmentin] 875-125 mg tablet 1 tab PO Q12H 10 Days Qty: 20 RF: 0 metronidazole [Flagyl] 500 mg tablet 500 mg PO BID 14 Days Qty: 28 RF: 0 Referrals Referrals: PT,DECLINED [Primary Care Provider] -
[2019-10-11 09:14] LABS: Basophils # (auto) 0.03 K/uL (0-0.2); Basophils % (auto) 0.3 %; Eosinophils # (auto) 0.15 K/uL (0-0.5); Eosinophils % (auto) 1.6 %; Hematocrit (blood only) 31.5 % (37-47); Hemoglobin 10.7 g/dL (12.0-16.0); Immature Granulocytes # (auto) 0.07 K/uL (0.00-0.02); Immature Granulocytes % (auto) 0.7 %; Lymphocytes # (auto) 1.27 K/uL (1.2-3.4); Lymphocytes % (auto) 13.4 %; Mean Corpuscular Hemoglobin 30.1 pg (25-34); Mean Corpuscular Volume 88.5 fL (80-100); Mean Platelet Volume 10.2 fL (7.4-10.4); Monocytes # (auto) 0.74 K/uL (0.11-0.59); Monocytes % (auto) 7.8 %; Neutrophils # (auto) 7.22 K/uL (1.4-6.5); Neutrophils % (auto) 76.2 %; Platelet Count 320 K/uL (130-400); RDW Coefficient of Variation 12.9 % (11.5-14.5); Red Blood Count 3.56 M/uL (4.2-5.4); White Blood Count 9.48 K/uL (4.8-10.8)
[2019-10-11 09:26] LABS: Albumin Level 3.2 gm/dl (3.4-5.0); BUN Creatinine Ratio 17.3 (10-20); Calcium 9.4 mg/dl (8.5-10.1); Creatinine Clr Calc Pharmacy 100.6 ml/min; Est GFR (African American) 102.2; Est GFR (Non-African American) 88.2; Potassium 4.1 mmol/L (3.5-5.1)
[2019-10-11 09:29] LABS: Albumin Globulin Ratio 0.7 (0.9-2); Bilirubin,Total 0.3 mg/dl (0.2-1); Globulin 4.4 gm/dl (2.5-4.0); Total Protein 7.6 gm/dl (6.4-8.2)
[2019-10-11] MEDS ORDERED: IOVERSOL 100ml IV PRN (10:44)
[2019-10-11] MEDS ORDERED: KETOROLAC TROMETHAMINE 15 MG/ML VIAL IV STA (11:00)
--- NOTE | 2019-10-11 11:13 | CT Scan Report ---
CT SCAN OF THE ABDOMEN AND PELVIS WITH IV CONTRAST CLINICAL HISTORY: Generalized abdominal pain. Recent delivery. COMPARISON STUDY: Ultrasound of the abdominal wall dated 10/06/2019. TECHNIQUE: Following the IV administration of 94 cc of Optiray 320, CT scan of the abdomen and pelvi s is performed from the lung bases to the proximal femora. Images are reviewed in the axial, sagittal , and coronal planes. IV contrast was administered without complication. A dose lowering technique wa s utilized adhering to the principles of ALARA. CT DOSE: 1221.33 mGy.cm FINDINGS: Lung bases: The heart is normal in size and without pericardial effusion. The lung bases are clear. Liver: The contrast-enhanced liver is normal in size, contour, and attenuation. There is no intrahepa tic biliary ductal dilatation. The hepatic veins and portal veins are patent. Gallbladder: Unremarkable. Spleen: Normal in size and attenuation. Pancreas: Unremarkable. Adrenal glands: Unremarkable. Kidneys: The contrast enhanced kidneys are normal in size and without hydronephrosis. There is marked ly heterogeneous renal perfusion with bilateral striated nephrograms. Abdominal vasculature: The abdominal aorta is normal in course and caliber. Bowel: There is mild colonic diverticulosis without CT evidence of acute diverticulitis. Mild fecal r etention is noted throughout the colon. There is no bowel obstruction. The appendix is well-visualiz ed and normal. Peritoneum: There is no intraperitoneal free air or abdominal ascites. There is a fat-containing umbi lical hernia. Lymphadenopathy: None. Pelvic viscera: The bladder is distended but otherwise normal as imaged. The post gravid uterus is en larged and heterogeneous. Foci of gas are present within the endometrial canal. No adnexal lesion is seen. Soft tissues: A ventral incision is noted in the pelvis. There is a small and minimally complex fluid collection identified within the subcutaneous fat of the ventral pelvis. This measures approximately 1.5 x 2.0 x 9 cm as seen on axial image #422. Small foci of gas are present within this collection o n image #405. A portion likely extends into the left rectus muscle. No intraperitoneal extension is s een. Skeletal structures: No lytic or blastic lesions are seen. Sclerotic change is noted in the sacroilia c joints. IMPRESSION: 1. There is markedly heterogeneous perfusion of both kidneys with bilateral striated nephrograms. The appearance suggests pyelonephritis. Correlation with clinical findings and urinalysis will be requir ed. 2. The post gravid uterus is enlarged and heterogeneous. Foci of gas are present throughout the endom etrial canal. This may represent expected postdelivery/postoperative findings. Superimposed endometri tis would be impossible to exclude and clinical correlation will be essential. 3. A ventral surgical incision is noted in the pelvis. There is a thin gas and fluid containing in th e ventral pelvic fat deep to this site as detailed above. This could represent a postoperative seroma /hematoma. The sterility of this collection cannot be assessed by imaging and abscess would be imposs ible to exclude. Again, clinical correlation will be essential. 4. Mild colonic diverticulosis without CT evidence of acute diverticulitis. 5. Additional findings as above. ACT 112: Negative or not required by law. Electronically signed by: Lex Yusuf M.D. 10/11/2019 11:12 AM
[2019-10-11 11:20] LABS: Appearance Urine Clear (Clear); Bacteria Urine Automated Negative (Negative); Bilirubin Urine Negative (Negative); Blood Urine 3+ (Negative); Color Urine Yellow; Epithelial Cell Urine Auto 20-30 /lpf (0-5); Glucose Urine UA Negative (Negative); Ketones Urine Negative (Negative); Leukocyte Esterase Urine 2+ (Negative); Nitrite Urine Negative (Negative); Protein Urine Negative (Negative); RBC Urine Automated >30 /hpf (0-4); Specific Gravity Urine 1.011 (1.000-1.030); Urobilinogen Urine Negative (Negative); WBC Urine Automated >30 /hpf (0-5)
[2019-10-11] MEDS ORDERED: cefTRIAXone SODIUM 2,000 MG/70 ML BAG IV STA (11:25)
[2019-10-11] MEDS ORDERED: ONDANSETRON INJ 2 MG/ML 2 ML VIAL IV PRN (13:13)
[2019-10-11] MEDS ORDERED: cefTRIAXone SODIUM 1,000 MG in DEXTROSE 5% 50 ML IV SCH (13:30)
--- NOTE | 2019-10-11 14:51 | Consultation Report ---
DATE OF CONSULTATION: 10/11/2019 REASON FOR CONSULTATION: Acute pyelonephritis . BRIEF HISTORY: Fadumo is a 29-year-old who is status post a section for failure to descend on 09/27. The patient ultimately developed a wound infection and was taken back for incision and drainage and washout on 10/07. The patient is now being cared for by the wound clinic and has a wound VAC in place. The patient is currently on Augmentin twice daily. The patient called early this morning to report bilateral mid back pain and urinary tract symptoms. The patient was recommended to go to the ED at that time. The patient presented to the Emergency Department with the same complaints and was evaluated. A urinalysis showed positive blood, positive leukocyte esterase and a CT scan was performed, which showed signs of acute pyelonephritis. The patient had [id number] CVA tenderness and a white count of 9.4, which was improved from the time of delivery and readmission from wound infection. The patient denies any fevers to date. The patient denies feeling ill, but does report continued flank pain bilaterally. The patient is reporting continued normal lochia, denying any foul smelling discharge. PAST MEDICAL HISTORY: Relatively unremarkable except as noted per HPI. PAST SURGICAL HISTORY: Includes a tendon repair, wisdom teeth extraction and a wrist surgery as well as the and subsequent incision and drainage with washout as noted per HPI. FAMILY HISTORY: Noncontributory to current admission. SOCIAL HISTORY: The patient denies current alcohol, tobacco or illicit drug use. PHYSICAL EXAMINATION: VITAL SIGNS: In the ED was notable for a blood pressure of 129/85, pulse 90, respiratory rate 18, temperature 36.7. The patient is saturating well on room air. GENERAL: The patient was alert and oriented x3 and well appearing at the time of evaluation. CARDIOPULMONARY: Exam was performed per ED. ABDOMEN: Noted to be soft, nontender, nondistended. Uterus was nontender to palpation. The wound VAC was noted to be in place and was intact with no concerns otherwise. BACK: The patient was noted to have bilateral [id number] CVA tenderness. LOWER EXTREMITIES: Unremarkable bilaterally. ASSESSMENT AND PLAN: Fadumo is a 29-year-old 2, para 1 as noted per history of present illness. The patient presents with acute pyelonephritis as well as a known wound infection with current wound VAC in place. Being that the patient developed what appears to be a pyelonephritis while on Augmentin, a decision was made to admit the patient despite true systemic symptoms at this time. We will admit the patient and continue with Rocephin, which was started in the Emergency Department as we agree with this as a good first line medication. We will continue with Motrin and Tylenol for pain and we will treat additionally as needed. We will continue to monitor for signs of improvement, which will be mostly based on physical exam as white count and temperatures have been normal. We will continue with wound care per wound care clinic's recommendations and if the patient is not able to be discharged in time for followup, we will contact them for care as they would have preferred outpatient. The patient is currently bottle feeding.
[2019-10-11] MEDS: IBUPROFEN 600 MG TAB PO PRN (22:50)
[2019-10-12] MEDS: ACETAMINOPHEN 325 MG TAB PO PRN ×4 (03:17→21:12)
[2019-10-12 06:33] LABS: Hematocrit (blood only) 30.2 % (37-47); Hemoglobin 10.1 g/dL (12.0-16.0); Mean Corpuscular Hgb Conc 33.4 g/dL (32-36); Mean Corpuscular Volume 89.6 fL (80-100); Mean Platelet Volume 10.2 fL (7.4-10.4); Platelet Count 326 K/uL (130-400); RDW Coefficient of Variation 12.9 % (11.5-14.5); Red Blood Count 3.37 M/uL (4.2-5.4); White Blood Count 7.95 K/uL (4.8-10.8)
[2019-10-12 07:23] LABS: BUN Creatinine Ratio 17.1 (10-20); Calcium 9.1 mg/dl (8.5-10.1); Creatinine Clr Calc Pharmacy 102.9 ml/min; Est GFR (African American) 105.1; Est GFR (Non-African American) 90.7; Potassium 4.1 mmol/L (3.5-5.1)
--- NOTE | 2019-10-12 08:31 | Gynecologic Progress Note ---
Date of Service October 12, 2019 Assessment & Plan (1) Pyelonephritis: Hospital Day 1 Pyelo - Improved - Continue Ceftriaxone 2mg daily - Awaiting blood and urine cultures - Likely discharge tomorrow am Admission and Anticipated Discharge Date Admission Date: October 11, 2019 Subjective 29yo admitted for acute pyelo. Doing well this am with no acute events overnight . Remains afebrile. Reports improved flank pain. No concerns this am. Normal lochia Physical Exam Gastrointestinal (Abdomen): Percussion/Palpation: abdomen soft; abdomen nontender, no guarding and abdomen not rigid Wound vac in place and functioning Results & Data ([facility]) Vital Signs (Past 12 Hours) Vital Signs Temp Pulse Resp BP Pulse Ox 10/12/19 03:15 36.7 C 86 16 138/88 97 10/11/19 23:50 36.7 C 93 H 16 126/86 97 PG Care Time/CCT Total # of Minutes Spent Total Time Spent with Patient: Total time spent is greater than 50% in coordination of care (as documented) at patient's floor/unit and/or counseling patient: Coding Level of Care Code 02863 Subseq Hosp Care Lvl 2 Diagnoses Pyelonephritis N12
[2019-10-12] MEDS: metroNIDAZOLE 500 MG TAB PO SCH ×2 (10:39→21:11)
[2019-10-12] MEDS: cefTRIAXone SODIUM 2,000 MG in DEXTROSE 5% 50 ML IV SCH (12:12)
[2019-10-12] MEDS: IBUPROFEN 600 MG TAB PO PRN ×2 (12:18→18:12)
[2019-10-13] MEDS: IBUPROFEN 600 MG TAB PO PRN ×2 (00:37→08:19)
--- NOTE | 2019-10-13 07:40 | Gynecologic Progress Note ---
Date of Service October 13, 2019 Assessment & Plan (1) Pyelonephritis: Hospital Day 1 Pyelo - Improved - Continue Ceftriaxone 2mg daily - Awaiting final blood and urine cultures. Prelim Blood negative. Prelim Urine: Pin point - Discharge today following wound care and antibiotic. Will send her home on antibiotic prescribed for wound care as urine cultures appear to likely be negative. If final cultures today show growth will need to change antibiotic which will need to be coordinated with wound care. Admission and Anticipated Discharge Date Admission Date: October 11, 2019 Subjective 29yo admitted for acute pyelo. Doing well this am with no acute events overnight. Remains afebrile. Reports improved flank pain. No concerns this am. Normal lochia Physical Exam Gastrointestinal (Abdomen): Percussion/Palpation: abdomen soft; abdomen nontender, no guarding and abdomen not rigid Results & Data ([facility]) Vital Signs (Past 12 Hours) Vital Signs Temp Pulse Resp BP Pulse Ox 10/13/19 00:00 36.4 C L 86 20 123/84 99 10/12/19 20:20 36.8 C 88 20 134/87 98 PG Care Time/CCT Total # of Minutes Spent Total Time Spent with Patient: Total time spent is greater than 50% in coordination of care (as documented) at patient's floor/unit and/or counseling patient: Coding Level of Care Code 88606 Subseq Hosp Care Lvl 2 Diagnoses Pyelonephritis N12
[2019-10-13] MEDS ORDERED: OXYCODONE/ACETAMINOPHEN 5mg/325mg TAB PO ONE (07:44)
[2019-10-13] MEDS: metroNIDAZOLE 500 MG TAB PO SCH (09:05)
[2019-10-13] MEDS: cefTRIAXone SODIUM 2,000 MG in DEXTROSE 5% 50 ML IV SCH (11:51)
--- NOTE | 2019-10-15 15:51 | Discharge Summary ---
HOSPITAL COURSE: Fadumo is a 29-year-old , who is approximately 2 weeks status post a primary section. The patient ultimately re-presented for care on 10/06 and at that time was noted to have a wound infection. The patient underwent incision and drainage in the OR and has a wound VAC in place at the time of admission. The patient was seen in the Emergency Department for flank pain and a urinalysis showing questionable urinary tract infection as well as CT findings concerning for pyelonephritis. The patient was afebrile and had been afebrile at that point. White count was within normal range. The patient was admitted due to the fact that she was on Augmentin and metronidazole and developed a questionable pyelonephritis. The patient was admitted and started on ceftriaxone for treatment of the pyelonephritis. She was maintained on the metronidazole. The patient remained in house for 2 days and was afebrile with normal white count maintained during her stay. The preliminary urinalysis showed pinpoint growth and final result was pending on the day of discharge. Blood cultures were negative. The patient was seen by wound care for wound VAC change and evaluation prior to discharge. The patient was discharged home on hospital day #3. The patient was discharged with followup care with both OB as well as wound care clinic. The patient will be contacted once final urine cultures are completed, which will be in the afternoon on the day of discharge and if showing a urinary tract infection, she will need to be switched on antibiotics. The results ultimately did return showing that she did not have a UTI. The patient was contacted with results and recommended to stay on the same antibiotic regimen that she was previously on.
== END 2019-10-13 13:55 | disposition home health service (06) | DRG 776 ==
LOC: ED 08:06 → 4N 13:13

== ENCOUNTER 2020-11-18 17:39 | Observation (INO) ==
--- NOTE | 2020-11-18 19:33 | Emergency Department Note ---
Impression & Plan Acute pancreatitis, Nausea, Abdominal pain ED Provider Note NAME: MERLENE SILVA AGE: 30 SEX: F : 1990 ARRIVES VIA: Walk-In INFORMANT: Patient, ED PROVIDER(S): Daryl Woody MD Chief Complaint: Abdominal pain HPI: Patient does present with concern for abdominal pain this been ongoing approximately 2 days. Patient describes it as achy with occasional sharp twinges of pain primarily in the epigastric and left upper quadrant. Patient denies any recent trauma heavy lifting twisting or turning. The patient last drank alcohol on Sunday. The patient denies any urinary symptoms but the patient has had some constipation and believes she has not passing flatus. The patient does have a prior history of section which was completed last year. Patient denies any vaginal discharge. The patient's LMP was several weeks ago. Patient was seen in the outpatient setting by Dr. Amanda and was trialed on medications for gastritis. Patient states that this did not prove her symptoms. Patient has had nausea but without vomiting. Patient denies any tobacco use. Patient denies any sick contacts, upper respiratory symptoms, loss of taste or smell, cough or fever. ROS: See HPI for pertinent positives and negatives. A total of 10 systems were reviewed and otherwise negative. Past medical history: See below Surgical history: See below Social history: See below Physical Exam: GENERAL: Mildly uncomfortable in appearance. NAD, non-toxic. EYE EXAM: Normal conjunctiva. PERRL, no anisocoria and EOM's grossly intact w/o pain. NECK: Supple, no nuchal rigidity, no adenopathy, non-tender. No signs of meningismus. LUNGS: Clear to auscultation. Normal chest wall mechanics. HEART: Tachycardic and regular, no MRG. ABDOMEN: Abdomen soft, epigastric left-sided abdominal pain, no right-sided abdominal pain, negative obturators and psoas, normo-active bowel sounds, no masses, no rebound or guarding. BACK: No CVA TTP. SKIN: No rashes and no bruising. UPPER EXTREMITIES: Upper extremities are grossly normal. LOWER EXTREMITIES: Grossly normal, no edema. NEURO EXAM: A&O x3, cranial nerves II-XII grossly intact, normal speech, moves all 4 extremities on command w/o issue. Differential diagnoses: Appendicitis, ovarian cyst, ovarian torsion, ectopic , TOA, PID, infections, diverticulitis, UTI, obstruction, mesenteric ischemia, aortic pathology, inflammatory bowel disease, renal colic, PUD, pancreatitis, biliary pathology, hernia, volvulus, constipation, as well as ot her pathologies. Course: Patient was seen and evaluated the bedside. Full history physical exam was performed. EKG: None Imaging Studies: CT abdomen pelvis with contrast: Patchy hypoattenuation pancreatic tail. No hydronephrosis or obstructing stone. No diverticulitis, normal appendix, no bowel obstruction or inflammation. Cardiac monitoring: An order was placed for continuous cardiac monitoring. The monitor shows a rate of 87 with sinus rhythm. MDM: Patient did have bladder completed along with CT abdomen pelvis. Urinalysis also obtained. Patient was treated symptomatically with pain medication. Patient has mild white count of 12 with a normal H&H and platelet count. Kidney function is unremarkable. The patient's lipase is not elevated. Urinalysis does show the possibility of infection and the patient did have some left-sided flank discomfort. CT abdomen pelvis shows hyperattenuation of the pancreatic tail. No hydro or obstructing stone. No diverticulitis or bowel obstruction. Appendix is normal. Given the patient does have some hyperattenuation of the pancreas with epigastric pain could possibly be pancreatitis though the patient's lipase is not elevated. Upon reassessment the patient only had mild improvement in pain. Subsequent reassessment after antibiotics for the possibility of UTI the patient still had a recurrence of pain. Additional pain medication was ordered. I did speak with the on-call hospitalist Dr. Llamas and the patient was admitted to the medicine service. Past Med/Surg History Medical History (Updated 11/18/20 @ 23:20 by Daryl Woody MD) ADD (attention deficit disorder) History of varicella vaccination Insulin controlled gestational diabetes mellitus (GDM) during state Pyelonephritis Status post induced Surgical History S/P S/P tendon repair S/P wisdom tooth extraction S/P wrist surgery Family History Mother Anaphylactic shock Anxiety Grandfather Diabetes Grandmother Cancer Denies family history of Ovarian cancer Prostate cancer Breast cancer Colorectal cancer Social History Smoking Status: Never smoker Second Hand Exposure: No; Hx Alcohol Use: Yes Hx Substance Use: No Preferred Language: [place] Communication Ability: Effective 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 Beliefs That Will Affect Care: None marital status: Single Current Living Situation: Family Feels Safe at Home: Yes Assistive Devices: None Allergies Allergies Allergy/AdvReac Type Severity Reaction Status Date / Time No Known Allergies Verified 11/18/20 20:33 Home Meds Home Medications Medication Instructions Recorded Confirmed pantoprazole 20 mg PO BID 11/18/20 11/18/20 phentermine 37.5 mg PO DAILY 11/18/20 11/18/20 Previous Rx's Medication Instructions Recorded etonogestrel 0.12 mg-ethinyl 1 vag ring PV ONCE 21 Days #1 ea 11/10/19 estradiol 0.015 mg/24 hr vaginal ring Results & Data (ED) Vital Signs Vital Signs - 24 hr 11/18/20 17:51 11/18/20 19:25 11/18/20 21:25 Temperature 36 C L Temperature Source Temporal Artery Scan Pulse Rate 136 H Pulse Rate [Right Finger] 112 H 87 Respiratory Rate 22 16 16 Respiratory Effort / Characteristics Non-Labored Spontaneous Non-Labored Spontaneous Respiratory Depth Normal Normal Blood Pressure 135/93 Blood Pressure [Right Arm] 141/96 H 151/105 H Blood Pressure Mean 107 Blood Pressure Mean [Right Arm] 111 120 Blood Pressure Position Sitting Blood Pressure Position [Right Arm] Lying Pulse Oximetry 100 98 95 Oxygen Delivery Method Room Air Room Air Room Air Sepsis Recent Fever Within 48 Hours No Sepsis New/Unexplained Change in Mental Status N/A Sepsis Action Taken by Nursing No Action Required Home Medications Current Medication List: was personally reviewed by me Laboratory Data Attestation: I reviewed the patient's lab results. Result diagrams: 11/18/20 19:27 11/18/20 20:20 Lab Results 11/18/20 11/18/20 11/18/20 Range/Units 19:21 19:27 19:27 WBC 12.25 H (4.8-10.8) K/uL RBC 5.11 (4.2-5.4) M/uL Hgb 15.6 (12.0-16.0) g/dL Hct 44.1 (37-47) % MCV 86.3 (80-100) fL MCH 30.5 (25-34) pg MCHC 35.4 (32-36) g/dL RDW Std Deviation 38.9 (36.4-46.3) fL RDW Coeff of Kevin 12.2 (11.5-14.5) % Plt Count 329 (130-400) K/uL MPV 11.1 H (7.4-10.4) fL Immature Gran % (Auto) 0.2 % Neut % (Auto) 75.0 % Lymph % (Auto) 17.0 % [place] % (Auto) 6.4 % Eos % (Auto) 1.2 % Baso % (Auto) 0.2 % Neut # (Auto) 9.17 H (1.4-6.5) K/uL Lymph # (Auto) 2.08 (1.2-3.4) K/uL [place] # (Auto) 0.79 H (0.11-0.59) K/uL Eos # (Auto) 0.15 (0-0.5) K/uL Baso # (Auto) 0.03 (0-0.2) K/uL Immature Gran # (Auto) 0.03 H (0.00-0.02) K/uL Sodium 137 (136-145) mmol/L Potassium (3.5-5.1) mmol/L Chloride 105 (98-107) mmol/L Carbon Dioxide 25 (21-32) mmol/L Anion Gap 7.0 (3-11) BUN 7 (7-18) mg/dl Creatinine 0.75 (0.6-1.2) mg/dl Est Cr Clr Drug Dosing 108.5 ml/min Est GFR ( Amer) 123.1 Est GFR (Non-Af Amer) 106.2 BUN/Creatinine Ratio 9.6 L (10-20) Glucose 95 (70-99) mg/dl Calcium 9.5 (8.5-10.1) mg/dl Total Bilirubin 0.7 (0.2-1) mg/dl AST (15-37) U/L ALT 25 (12-78) U/L Alkaline Phosphatase 69 (45-117) U/L Troponin I (0-0.045) ng/ml Total Protein 8.9 H (6.4-8.2) gm/dl Albumin 3.9 (3.4-5.0) gm/dl Globulin 5.0 H (2.5-4.0) gm/dl Albumin/Globulin Ratio 0.8 L (0.9-2) Lipase 195 (73-393) U/L HCG, Qual (Negative) Urine Color Yellow Urine Appearance Cloudy A (Clear) Urine pH 5.5 (4.5-7.5) Ur Specific [place] 1.015 (1.000-1.030) Urine Protein 1+ H (Negative) Urine Glucose (UA) Negative (Negative) Urine Ketones 1+ H (Negative) Urine Blood Negative (Negative) Urine Nitrite Negative (Negative) Urine Bilirubin Negative (Negative) Urine Urobilinogen Negative (Negative) Ur Leukocyte Esterase 3+ H (Negative) Urine WBC (Auto) >30 H (0-5) /hpf Urine RBC (Auto) 0-4 (0-4) /hpf U Hyaline Cast (Auto) 5-10 H (0-5) /lpf U Epithel Cells (Auto) >30 H (0-5) /lpf Urine Bacteria (Auto) 1+ H (Negative) 11/18/20 11/18/20 Range/Units 19:27 20:20 WBC (4.8-10.8) K/uL RBC (4.2-5.4) M/uL Hgb (12.0-16.0) g/dL Hct (37-47) % MCV (80-100) fL MCH (25-34) pg MCHC (32-36) g/dL RDW Std Deviation (36.4-46.3) fL RDW Coeff of Kevin (11.5-14.5) % Plt Count (130-400) K/uL MPV (7.4-10.4) fL Immature Gran % (Auto) % Neut % (Auto) % Lymph % (Auto) % [place] % (Auto) % Eos % (Auto) % Baso % (Auto) % Neut # (Auto) (1.4-6.5) K/uL Lymph # (Auto) (1.2-3.4) K/uL [place] # (Auto) (0.11-0.59) K/uL Eos # (Auto) (0-0.5) K/uL Baso # (Auto) (0-0.2) K/uL Immature Gran # (Auto) (0.00-0.02) K/uL Sodium (136-145) mmol/L Potassium 3.6 (3.5-5.1) mmol/L Chloride (98-107) mmol/L Carbon Dioxide (21-32) mmol/L Anion Gap (3-11) BUN (7-18) mg/dl Creatinine (0.6-1.2) mg/dl Est Cr Clr Drug Dosing ml/min Est GFR ( Amer) Est GFR (Non-Af Amer) BUN/Creatinine Ratio (10-20) Glucose (70-99) mg/dl Calcium (8.5-10.1) mg/dl Total Bilirubin (0.2-1) mg/dl AST 13 L (15-37) U/L ALT (12-78) U/L Alkaline Phosphatase (45-117) U/L Troponin I < 0.015 (0-0.045) ng/ml Total Protein (6.4-8.2) gm/dl Albumin (3.4-5.0) gm/dl Globulin (2.5-4.0) gm/dl Albumin/Globulin Ratio (0.9-2) Lipase (73-393) U/L HCG, Qual Negative (Negative) Urine Color Urine Appearance (Clear) Urine pH (4.5-7.5) Ur Specific [place] (1.000-1.030) Urine Protein (Negative) Urine Glucose (UA) (Negative) Urine Ketones (Negative) Urine Blood (Negative) Urine Nitrite (Negative) Urine Bilirubin (Negative) Urine Urobilinogen (Negative) Ur Leukocyte Esterase (Negative) Urine WBC (Auto) (0-5) /hpf Urine RBC (Auto) (0-4) /hpf U Hyaline Cast (Auto) (0-5) /lpf U Epithel Cells (Auto) (0-5) /lpf Urine Bacteria (Auto) (Negative) Administered Medications Discontinued Medications Fentanyl Citrate (Fentanyl Citrate 100 Mcg/2 Ml Vial) 75 mcg IV NOW STA Stop: 11/18/20 21:13 Last Admin: 11/18/20 21:20 Dose: 75 mcg Documented by: [id number] Sodium Chloride (Nss 1000ml) 1,000 mls @ 999 mls/hr IV .Q1H1M STA Stop: 11/18/20 20:56 Last Infusion: 11/18/20 21:06 Dose: 0 mls/hr Documented by: [id number] Admin: 11/18/20 20:05 Dose: 999 mls/hr Documented by: [id number] Ceftriaxone Sodium (Rocephin) 2,000 mg in 70 mls @ 140 mls/hr IV NOW STA Stop: 11/18/20 22:14 Last Infusion: 11/18/20 22:21 Dose: 0 mls/hr Documented by: [id number] Admin: 11/18/20 21:51 Dose: 140 mls/hr Documented by: [id number] Ioversol (Ioversol 100ml) 94 ml IV ONCE ONE Stop: 11/18/20 21:00 Last Admin: 11/18/20 21:00 Dose: 94 ml Documented by: [id number] Morphine Sulfate (Morphine Sulfate 4 Mg/Ml 1 Ml Carp\Vial) 4 mg IV NOW STA Stop: 11/18/20 19:57 Last Admin: 11/18/20 20:04 Dose: 4 mg Documented by: [id number] Ondansetron HCl (Ondansetron Inj 2 Mg/Ml 2 Ml Vial) 4 mg IV NOW STA Stop: 11/18/20 19:57 Last Admin: 11/18/20 20:04 Dose: 4 mg Documented by: [id number] Discharge Plan Visit Data Chief Complaint: Abdominal Pain Stated Complaint: ABDOMINAL PAIN ED Provider: Daryl Woody Discharge Problem: Acute pancreatitis, Nausea, Abdominal pain Forms Stand Alone Forms: [facility] Prescriptions Prescriptions: No Action etonogestrel-ethinyl estradiol [NuvaRing] 0.12-0.015 mg/24 hr ring 1 vag ring PV ONCE 21 Days Qty: 1 RF: 11 phentermine 37.5 mg tablet 37.5 mg PO DAILY RF: 0 pantoprazole 20 mg tablet,delayed release (DR/EC) 20 mg PO BID RF: 0 Discharge Problem: Acute pancreatitis Qualifiers: Pancreatitis type: unspecified pancreatitis type Acute pancreatitis complication: unspecified Qualified Code(s): K85.90 - Acute pancreatitis without necrosis or infection, unspecified Abdominal pain Qualifiers: Abdominal location: epigastric Qualified Code(s): R10.13 - Epigastric pain
[2020-11-18 19:35] LABS: Appearance Urine Cloudy (Clear); Bacteria Urine Automated 1+ (Negative); Bilirubin Urine Negative (Negative); Blood Urine Negative (Negative); Color Urine Yellow; Epithelial Cell Urine Auto >30 /lpf (0-5); Glucose Urine UA Negative (Negative); Ketones Urine 1+ (Negative); Leukocyte Esterase Urine 3+ (Negative); Nitrite Urine Negative (Negative); Protein Urine 1+ (Negative); RBC Urine Automated 0-4 /hpf (0-4); Specific Gravity Urine 1.015 (1.000-1.030); Urobilinogen Urine Negative (Negative); WBC Urine Automated >30 /hpf (0-5); pH Urine 5.5 (4.5-7.5)
[2020-11-18 19:36] LABS: Basophils # (auto) 0.03 K/uL (0-0.2); Basophils % (auto) 0.2 %; Eosinophils # (auto) 0.15 K/uL (0-0.5); Eosinophils % (auto) 1.2 %; Hematocrit (blood only) 44.1 % (37-47); Hemoglobin 15.6 g/dL (12.0-16.0); Immature Granulocytes # (auto) 0.03 K/uL (0.00-0.02); Immature Granulocytes % (auto) 0.2 %; Lymphocytes # (auto) 2.08 K/uL (1.2-3.4); Mean Corpuscular Hemoglobin 30.5 pg (25-34); Mean Corpuscular Hgb Conc 35.4 g/dL (32-36); Mean Corpuscular Volume 86.3 fL (80-100); Mean Platelet Volume 11.1 fL (7.4-10.4); Monocytes # (auto) 0.79 K/uL (0.11-0.59); Monocytes % (auto) 6.4 %; Neutrophils # (auto) 9.17 K/uL (1.4-6.5); Platelet Count 329 K/uL (130-400); RDW Coefficient of Variation 12.2 % (11.5-14.5); RDW Standard Deviation 38.9 fL (36.4-46.3); Red Blood Count 5.11 M/uL (4.2-5.4); White Blood Count 12.25 K/uL (4.8-10.8)
[2020-11-18 19:55] LABS: Pregnancy Test, Serum Negative (Negative)
[2020-11-18] MEDS ORDERED: MoRPHine SULFATE 4 MG/ML 1 ML CARP\\VIAL IV STA (19:56)
[2020-11-18] MEDS ORDERED: ONDANSETRON INJ 2 MG/ML 2 ML VIAL IV STA (19:56)
[2020-11-18] MEDS ORDERED: SODIUM CHLORIDE 0.9% 1000ML 1,000 ML IV STA (19:56)
[2020-11-18 20:09] LABS: Albumin Globulin Ratio 0.8 (0.9-2); Albumin Level 3.9 gm/dl (3.4-5.0); BUN Creatinine Ratio 9.6 (10-20); Bilirubin,Total 0.7 mg/dl (0.2-1); Calcium 9.5 mg/dl (8.5-10.1); Creatinine Clr Calc Pharmacy 108.5 ml/min; Est GFR (African American) 123.1; Est GFR (Non-African American) 106.2; Total Protein 8.9 gm/dl (6.4-8.2)
[2020-11-18 20:50] LABS: Potassium 3.6 mmol/L (3.5-5.1)
[2020-11-18] MEDS ORDERED: OPTIRAY 320 100ml IV ONE (20:59)
[2020-11-18 21:00] LABS: Aspartate Aminotransferase 13 U/L (15-37); Troponin I < 0.015 ng/ml (0-0.045)
[2020-11-18] MEDS ORDERED: fentaNYL citrate 100 MCG/2 ML VIAL IV STA ×2 (21:12→23:15)
[2020-11-18] MEDS ORDERED: cefTRIAXone SODIUM 2,000 MG/70 ML BAG IV STA (21:45)
[2020-11-18 23:32] LABS: Magnesium 2.1 mg/dl (1.8-2.4)
--- NOTE | 2020-11-19 00:11 | History & Physical Report ---
Date of Service November 19, 2020 Assessment & Plan (1) Abdominal pain: Possible early pancreatitis as per discussion with teleradiologist ? Precipitated by alcohol although not excessive as per patient account. Rule out biliary etiology Asymptomatic pyuria, contaminated specimen OBS GMF IVF, analgesia, bowel rest Gallbladder ultrasound Follow official CT abdomen pelvis results GI consult Re: Abdominal pain, possible early pancreatitis follow urine CS, hold off on antibiotics for now for asymptomatic pyuria. DVT prophylaxis with Lovenox subcu Full code Text document was generated using [employer] voice recognition software. It may contain grammatical or spelling errors. Kindly contact undersigned for clarification of any documentation item in question. History of Present Illness Chief Complaint: Abdominal pain Primary Care Provider: Maryjo Saravia DO History obtained from patient and records. Medical history significant for obesity, gestational DM as per records. Last confinement September 2019 under OB service for UTI. 3 days history of achy epigastric discomfort going to the chest and back described as heartburn-like with nausea without emesis. No prior episodes. No OTC NSAID intake. Discomfort unrelieved by Tums and Pepto-Bismol at home. No fever, no chills. 3 alcoholic drinks for Sunday as per patient. Patient denies UTI symptoms. Patient seen at PCP's office 2 days ago. Symptoms attributed to gastritis. PPI twice daily prescription given. Intractable pain despite patient compliance with regimen. IV Ceftriaxone given at the ER for possible UTI. Medical History as above Surgical History : Dental surgery Family History : Alcoholic pancreatitis Personal/Social history : Non-smoker, occasional EtOH intake, homemaker Allergies Allergy/AdvReac Type Severity Reaction Status Date / Time No Known Allergies Verified 11/18/20 20:33 Home Medications Medication Instructions Recorded Confirmed Type etonogestrel 0.12 mg-ethinyl 1 vag ring PV ONCE 21 Days #1 ea 11/10/19 11/18/20 Rx estradiol 0.015 mg/24 hr vaginal ring pantoprazole 20 mg PO BID 11/18/20 11/18/20 History phentermine 37.5 mg PO DAILY 11/18/20 11/18/20 History Past Med/Surg History Medical History (Updated 11/18/20 @ 23:20 by Daryl Woody MD) ADD (attention deficit disorder) History of varicella vaccination Insulin controlled gestational diabetes mellitus (GDM) during state Pyelonephritis Status post induced Surgical History S/P S/P tendon repair S/P wisdom tooth extraction S/P wrist surgery Family History Mother Anaphylactic shock Anxiety Grandfather Diabetes Grandmother Cancer Denies family history of Ovarian cancer Prostate cancer Breast cancer Colorectal cancer Social History Smoking Status: Never smoker Second Hand Exposure: No; Hx Alcohol Use: Yes Alcohol type: beer Hx Substance Use: No Preferred Language: Belgian Communication Ability: Effective Musical String Maker Required: No Beliefs That Will Affect Care: None marital status: Single Current Living Situation: Family Current Living Situation Comment: boyfriend and son Feels Safe at Home: Yes Safety Concerns: Feels Safe At This Time Assistive Devices: None Review of Systems Review of Systems: As per HPI, all 10 systems reviewed, all other ROS negative Physical Exam Physical Exam: GENERAL: uncomfortable, obese, no respiratory distress SKIN: Normal color, warm HEENT: [place] palpebral conjunctivae, no ptosis, dry buccal mucosa NECK : Supple, no tenderness CHEST : CTA, no tenderness HEART : RRR, no obvious murmurs ABDOMEN: Some distention, epigastric tenderness EXTREMITIES : No LE swelling/tenderness, no other conspicuous deformities noted NEUROLOGIC : Coherent, no facial asymmetry, no other gross focality Results & Data Results & Data ([facility]) Vital Signs (Past 12 Hours) Vital Signs Temp Pulse Pulse Resp BP BP Pulse Ox 11/18/20 23:29 84 16 129/69 97 11/18/20 21:25 87 16 151/105 H 95 11/18/20 19:25 112 H 16 141/96 H 98 11/18/20 17:51 36 C L 136 H 22 135/93 100 Laboratory Results Laboratory Results WBC 12.25 K/uL (4.8-10.8) H 11/18/20 19:27 RBC 5.11 M/uL (4.2-5.4) 11/18/20 19:27 Hgb 15.6 g/dL (12.0-16.0) 11/18/20 19:27 Hct 44.1 % (37-47) 11/18/20: MCV 86.3 fL (80-100) 11/18/20: MCH 30.5 pg (25-34) 11/18/20: MCHC 35.4 g/dL (32-36) 11/18/20: RDW Std Deviation 38.9 fL (36.4-46.3) 11/18/20 RDW Coeff of Kevin 12.2 % (11.5-14.5) 11/18/20: Plt Count 329 K/uL (130-400) 11/18/20: MPV 11.1 fL (7.4-10.4) H 11/18/20: Immature Gran % (Auto) 0.2 % 11/18/20: Neut % (Auto) 75.0 % 11/18/20: Lymph % (Auto) 17.0 % 11/18/20: [place] % (Auto) 6.4 % 11/18/20: Eos % (Auto) 1.2 % 11/18/20: Baso % (Auto) 0.2 % 11/18/20: Neut # (Auto) 9.17 K/uL (1.4-6.5) H 11/18/20: Lymph # (Auto) 2.08 K/uL (1.2-3.4) 11/18/20: [place] # (Auto) 0.79 K/uL (0.11-0.59) H 11/18/20: Eos # (Auto) 0.15 K/uL (0-0.5) 11/18/20: Baso # (Auto) 0.03 K/uL (0-0.2) 11/18/20: Immature Gran # (Auto) 0.03 K/uL (0.00-0.02) H 11/18/20 19: Sodium 137 mmol/L (136-145) 11/18/20: Potassium 3.6 mmol/L (3.5-5.1) 11/18/20 20:20 Chloride 105 mmol/L (98-107) 11/18/20: Carbon Dioxide 25 mmol/L (21-32) 11/18/20 19: Anion Gap 7.0 (3-11) 11/18/20 19: BUN 7 mg/dl (7-18) 11/18/20: Creatinine 0.75 mg/dl (0.6-1.2) 11/18/20: Est Cr Clr Drug Dosing 108.5 ml/min 11/18/20: Est GFR ( Amer) 123.1 11/18/20 19: Est GFR (Non-Af Amer) 106.2 11/18/20: BUN/Creatinine Ratio 9.6 (10-20) L 11/18/20: Glucose 95 mg/dl (70-99) 11/18/20: Calcium 9.5 mg/dl (8.5-10.1) 11/18/20: Magnesium 2.1 mg/dl (1.8-2.4) 11/18/20 20:20 Total Bilirubin 0.7 mg/dl (0.2-1) 11/18/20 19: AST 13 U/L (15-37) L 11/18/20 20:20 ALT 25 U/L (12-78) 11/18/20 19: Alkaline Phosphatase 69 U/L (45-117) 11/18/20: Troponin I < 0.015 ng/ml (0-0.045) 11/18/20 20:20 Total Protein 8.9 gm/dl (6.4-8.2) H 11/18/20 19: Albumin 3.9 gm/dl (3.4-5.0) 11/18/20 19: Globulin 5.0 gm/dl (2.5-4.0) H 11/18/20 19: Albumin/Globulin Ratio 0.8 (0.9-2) L 11/18/20 19: Lipase 195 U/L (73-393) 11/18/20 19: TSH 1.980 uIu/ml (0.300-4.500) 11/18/20 20:20 HCG, Qual Negative (Negative) 11/18/20: Urine Color Yellow 11/18/20 19: Urine Appearance Cloudy (Clear) A 11/18/20 19:21 Urine pH 5.5 (4.5-7.5) 11/18/20 19:21 Ur Specific [place] 1.015 (1.000-1.030) 11/18/20 19:21 Urine Protein 1+ (Negative) H 11/18/20 19:21 Urine Glucose (UA) Negative (Negative) 11/18/20 19:21 Urine Ketones 1+ (Negative) H 11/18/20 19:21 Urine Blood Negative (Negative) 11/18/20 19:21 Urine Nitrite Negative (Negative) 11/18/20 19:21 Urine Bilirubin Negative (Negative) 11/18/20 19:21 Urine Urobilinogen Negative (Negative) 11/18/20 19:21 Ur Leukocyte Esterase 3+ (Negative) H 11/18/20 19:21 Urine WBC (Auto) >30 /hpf (0-5) H 11/18/20 19:21 Urine RBC (Auto) 0-4 /hpf (0-4) 11/18/20 19:21 U Hyaline Cast (Auto) 5-10 /lpf (0-5) H 11/18/20 19:21 U Epithel Cells (Auto) >30 /lpf (0-5) H 11/18/20 19:21 Urine Bacteria (Auto) 1+ (Negative) H 11/18/20 19:21 COVID-19 Eval Order CovFluRsv at [facility] 11/18/20 23:[address] abdomen pelvis initial read: Nonspecific patchy hypoattenuation in the pancreatic tail, possible early pancreatitis as per the radiologist. Further evaluation could be performed with MRI. Mild focal fat along falciform ligament. No hydronephrosis or obstructing stone. No diverticulitis. section. (1) Abdominal pain Abdominal location: epigastric Qualified Code(s): R10.13 - Epigastric pain
[2020-11-19] MEDS ORDERED: KETOROLAC TROMETHAMINE 15 MG/ML VIAL IV STA (00:13)
[2020-11-19] MEDS ORDERED: PANTOprazole 40 MG in SYRINGE 0 ML IV STA (00:13)
[2020-11-19 00:39] LABS: Influenza A virus by PCR Negative (Neg); Influenza B virus by PCR Negative (Neg); RSV by PCR Negative (Neg); SARS CoV2 RNA(COVID-19) InHosp NEGATIVE (Negative)
[2020-11-19] MEDS ORDERED: PROMETHAZINE HCL 12.5 MG in SODIUM CHLORIDE 0.9% 50 ML IV PRN (02:01)
[2020-11-19] MEDS ORDERED: oxyCODONE HCL IR 5 MG TAB (IMMEDIATE RELEASE) PO PRN (02:01)
[2020-11-19] MEDS ORDERED: MoRPHine SULFATE 4 MG/ML 1 ML CARP\\VIAL IV PRN (02:01)
[2020-11-19] MEDS ORDERED: LORazepam 0.25 MG/0.5 ML VIAL IV PRN (02:01)
[2020-11-19] MEDS ORDERED: LACTATED RINGER'S 1,000 ML IV ONE (02:01)
[2020-11-19 07:43] LABS: Basophils # (auto) 0.02 K/uL (0-0.2); Basophils % (auto) 0.2 %; Eosinophils # (auto) 0.15 K/uL (0-0.5); Eosinophils % (auto) 1.7 %; Hemoglobin 13.6 g/dL (12.0-16.0); Immature Granulocytes # (auto) 0.01 K/uL (0.00-0.02); Immature Granulocytes % (auto) 0.1 %; Lymphocytes % (auto) 20.3 %; Mean Corpuscular Hemoglobin 30.2 pg (25-34); Mean Corpuscular Hgb Conc 34.9 g/dL (32-36); Mean Corpuscular Volume 86.7 fL (80-100); Mean Platelet Volume 10.9 fL (7.4-10.4); Monocytes % (auto) 7.9 %; Neutrophils # (auto) 6.18 K/uL (1.4-6.5); Neutrophils % (auto) 69.8 %; Platelet Count 265 K/uL (130-400); RDW Coefficient of Variation 12.2 % (11.5-14.5); RDW Standard Deviation 38.7 fL (36.4-46.3); White Blood Count 8.86 K/uL (4.8-10.8)
[2020-11-19] MEDS ORDERED: ONDANSETRON INJ 2 MG/ML 2 ML VIAL IV PRN (07:51)
[2020-11-19] MEDS: KETOROLAC TROMETHAMINE 15 MG/ML VIAL IV PRN ×2 (08:05→14:46)
[2020-11-19 08:12] LABS: Alanine Aminotransferase 18 U/L (12-78); Albumin Level 3.2 gm/dl (3.4-5.0); Aspartate Aminotransferase 11 U/L (15-37); Blood Urea Nitrogen 5 mg/dl (7-18); Carbon Dioxide 23 mmol/L (21-32); Chloride 106 mmol/L (98-107); Creatinine Clr Calc Pharmacy 173.5 ml/min; Est GFR (African American) > 150.0; Est GFR (Non-African American) 131.6; Glucose 131 mg/dl (70-99); Potassium 3.7 mmol/L (3.5-5.1); Sodium 137 mmol/L (136-145)
--- NOTE | 2020-11-19 08:12 | Ultrasound Report ---
ABDOMINAL ULTRASOUND, RIGHT UPPER QUADRANT HISTORY: Generalized abdominal pain.. COMPARISON: Abdomen and pelvis CT 11/18/2020. FINDINGS: Pancreas: There is a 2.6 x 1.9 cm hypoechoic lesion at the pancreatic tail. Liver: 7 mm hypoechoic focus within the left hepatic lobe. There is focal fat near the falciform liga ment. Possible areas of focal fatty sparing at the gallbladder fossa. Gallbladder: No gallbladder wall thickening. No gallstones. CBD: 3 mm. Right kidney: No hydronephrosis. IMPRESSION: 1. A 2.6 x 1.9 cm hypoechoic lesion of the pancreatic tail. Follow-up MRI recommended for further umu luation. 2. A 7 mm indeterminate hypoechoic focus within the left hepatic lobe. This can also be assessed with follow-up MRI. ACT 112: Negative or not required by law. Electronically signed by: Nelson Zhu M.D. 11/19/2020 8:11 AM
--- NOTE | 2020-11-19 08:15 | CT Scan Report ---
CT SCAN OF THE ABDOMEN AND PELVIS WITH IV CONTRAST CLINICAL HISTORY: Epigastric abdominal pain. Left flank pain. COMPARISON STUDY: Abdominal CT dated 10/11/2019. TECHNIQUE: Following the IV administration of 94 cc of Optiray 320, CT scan of the abdomen and pelvi s is performed from the lung bases to the proximal femora. Images are reviewed in the axial, sagittal , and coronal planes. IV contrast was administered without complication. A dose lowering technique wa s utilized adhering to the principles of ALARA. CT DOSE: 731.37 mGy.cm FINDINGS: Lung bases: The heart is normal in size and without pericardial effusion. The lung bases are clear. Liver: The contrast-enhanced liver is normal in size, contour, and attenuation. Fatty sparing is note d adjacent to falciform ligament. There is no intrahepatic biliary ductal dilatation. The hepatic vei ns and portal veins are patent. Gallbladder: Unremarkable. Spleen: Normal in size and attenuation. Pancreas: There is a 3.2 x 2.4 cm heterogeneous low-attenuation focus identified in the pancreatic ta il on image #154. The remainder the pancreas is normal in appearance. The pancreatic duct is normal i n caliber. No peripancreatic inflammation is identified. Adrenal glands: Unremarkable. Kidneys: The contrast enhanced kidneys are normal in size and without hydronephrosis. The kidneys enh ance symmetrically. Abdominal vasculature: The abdominal aorta is normal in course and caliber. Bowel: There is mild colonic diverticulosis without CT evidence of acute diverticulitis. No bowel obs truction is seen. Mild fecal retention is noted throughout the colon. Residual enteric contrast is no eleazar in the colon. The appendix is well-visualized and normal. Peritoneum: There is no intraperitoneal free air or abdominal ascites. There is a fat-containing umbi lical hernia. Lymphadenopathy: None. Pelvic viscera: The bladder, uterus, and adnexa are normal as visualized noting bilateral ovarian fol licles. A contraceptive ring is in place. Skeletal structures: No lytic or blastic lesions are seen. IMPRESSION: 1. There is a 3.2 x 2.4 cm heterogeneous low-attenuation focus in the pancreatic tail. This is patho logically indeterminant and new from 10/11/2019. Although this could represent an atypical appearance of pancreatitis, there is no surrounding inflammation and the appearance is a more concerning for mas s lesion. Correlation with a contrast-enhanced abdominal MRI is recommended for further assessment. 2. Mild colonic diverticulosis without CT evidence of acute diverticulitis. 3. Additional findings as above. ACT 112: Negative or not required by law. Electronically signed by: Lex Yusuf M.D. 11/19/2020 8:13 AM
[2020-11-19 08:26] LABS: Albumin Globulin Ratio 0.8 (0.9-2); Alkaline Phosphatase 58 U/L (45-117); Bilirubin,Total 0.6 mg/dl (0.2-1); Globulin 3.8 gm/dl (2.5-4.0); Triglycerides 211 mg/dl (0-150)
[2020-11-19] MEDS ORDERED: ENOXAPARIN INJ 40 MG/0.4 ML SYR SQ SCH (09:00)
[2020-11-19] MEDS ORDERED: PANTOprazole 40 MG TAB PO SCH ×2 (09:00)
[2020-11-19] MEDS: LACTATED RINGER'S 1,000 ML IV SCH ×3 (09:22→17:30)
[2020-11-19] MEDS ORDERED: POLYETHYLENE (MIRALAX) 17 GM PACK PO PRN (12:37)
--- NOTE | 2020-11-19 12:37 | Gastrointestinal Consultation ---
Date of Consultation November 19, 2020 Assessment & Plan (1) Abdominal pain: Pt is a 30 y/o female seen for abdominal pain symptoms. ? pancreatitis with normal LFTs, lipase but abdominal imaging showed 3 x 2 heterogeneous focus on pancreas tail - unclear if atypical pancreatitis vs mass. There is also 7mm hypoechoic L liver lesion as well. - Will obtain MRI abd w/ and w/o contrast - CL diet and advance as tolerated after MRI obtained - Eventually needs outpt EUS evaluation which we will arrange - Miralax 17g daily prn constipation Supervising Physician Co-Signing Physician Notes I performed a history and physical examination of the patient today, including specifically on physical exam - soft abdomen. I have discussed the patient's management with the advanced practitioner. Please refer to the nurse pract madelyn's note for the documented findings and plan of care. No clear evidence of pancreatitis, there is a pancreatic tail lesion, this needs EUS FNA as OP in 2 weeks. Advance diet. Recall Gi if needed. History of Present Illness Reason for Consultation: Abdominal pain Requesting Physician: Dr. Mary Del Cid Attending Physician: Dr. Sanaz Bagley History of Present Illness Pt is a 30 y/o female seen for abdominal pain. She started having LUQ abd pain which then radiates to back and across upper abdomen about 3 days ago. She has nausea, heartburn symptoms but no vomiting. Hasn't been able to have BM since last Sunday. 3 alcoholic drinks on Easter but usually rare ETOH intake Denies NSAIDs, tobacco. Denies sick contact, travels. Denies new meds or antibx other than Adipex, Pantoprazole. On eval, labs unremarkable including normal LFTs, lipase. ? UTI, started on Ceftriaxone. CT abd/pelvis showed a 3.2 x 2.4 cm heterogeneous low-attenuation focus in the pancreatic tail, unclear if atypical appearance for pancreatitis vs mass lesion. She has colonic diverticulosis w/o diverticulitis, mild fecal retention. Gallbladder u/s redemonstrated pancreas lesion and a 7mm L hepatic lobe hypoechoic focus. Gallbladder in place w/o stones/sludge noted, no biliary ductal dilation. Allergies Allergy/AdvReac Type Severity Reaction Status Date / Time No Known Allergies Verified 11/18/20 20:33 Home Medications Medication Instructions Recorded Confirmed Type etonogestrel 0.12 mg-ethinyl 1 vag ring PV ONCE 21 Days #1 ea 11/10/19 11/18/20 Rx estradiol 0.015 mg/24 hr vaginal ring pantoprazole 20 mg PO BID 11/18/20 11/18/20 History phentermine 37.5 mg PO DAILY 11/18/20 11/18/20 History Patient History Medical History (Updated 11/19/20 @ 16:14 by Mary Del Cid, DO) ADD (attention deficit disorder) History of varicella vaccination Insulin controlled gestational diabetes mellitus (GDM) during state Pyelonephritis Status post induced Surgical History S/P S/P tendon repair S/P wisdom tooth extraction S/P wrist surgery Family History Mother Anaphylactic shock Anxiety Grandfather Diabetes Grandmother Cancer Denies family history of Ovarian cancer Prostate cancer Breast cancer Colorectal cancer Social History Smoking Status: Never smoker Second Hand Exposure: No; Hx Alcohol Use: Yes Alcohol type: beer Hx Substance Use: No Preferred Language: [place] Communication Ability: Effective Automatic Head Sawyer Required: No Beliefs That Will Affect Care: None marital status: Single Current Living Situation: Family Current Living Situation Comment: boyfriend and son Feels Safe at Home: Yes Safety Concerns: Feels Safe At This Time Assistive Devices: None Review of Systems Review of Systems: All systems reviewed & are unremarkable except as noted in HPI & below Physical Exam Constitutional: WD/WN, vitals as above well groomed, cooperative and comfortable Eyes: PERRL, conjunctivae normal, anicteric sclerae ENMT: external ear and nose normal, oropharynx normal Respiratory: normal respiratory effort, lungs clear to auscultation Cardiovascular: RRR, no murmur, no edema Gastrointestinal (Abdomen): normal bowel sounds, soft, nontender, no hepatosplenomegaly Skin: no rashes, warm and dry no jaundice Psychiatric: A+Ox3, euthymic affect Lymphatic: no lymphedema Results & Data ([facility]) Vital Signs (Past 12 Hours) Vital Signs Temp Pulse Pulse Resp BP BP Pulse Ox 11/19/20 07:36 36.8 C 98 H 18 144/90 H 98 11/19/20 02:03 37.2 C 95 H 16 139/96 99 11/19/20 01:15 108 H 16 135/93 97 (1) Abdominal pain Abdominal location: epigastric Qualified Code(s): R10.13 - Epigastric pain
[2020-11-19] MEDS ORDERED: GADOXETATE DISODIUM IV ONE (13:24)
--- NOTE | 2020-11-19 13:57 | Magnetic Resonance Report ---
MRI OF THE ABDOMEN WITH AND WITHOUT CONTRAST CLINICAL HISTORY: Pancreatic and liver lesions. COMPARISON STUDY: CT of the abdomen and pelvis November 18, 2020. Right upper quadrant ultrasound November. TECHNIQUE: Utilizing a 1.5 [place] magnet and dedicated coil, multiplanar, multiecho imaging of the abd omen was performed pre and postcontrast administration. Intravenous injection of 10 cc of Eovist was uneventful. Post contrast imaging was performed with dynamic enhancement, as well as 20 minute delaye d phase imaging. FINDINGS: Note is made of a 3.4 x 2.6 cm lesion within the pancreatic tail which corresponds to the f inding on CT of November 18, 2020. The peripheral components of this lesion enhance. Central portion appe ars cystic or necrotic. There is trace adjacent fluid. No pancreatic or biliary ductal dilatation is present. No additional pancreatic lesions are present. There is no abdominal lymphadenopathy. Splenic vein is patent. Loss of signal within the liver on the phase sequence indicates hepatic steatosis wi th focal area of increased hepatic steatosis within the medial segment. The 7 mm lesion within the li ovidio on ultrasound of November 29, 2020 is not identified on this examination. The gallbladder is unremar kable. The spleen, adrenal glands and kidneys are unremarkable. There is no hydronephrosis. The calib er and wall thickness of small and large bowel are normal. IMPRESSION: 1. 3.4 x 2.6 cm solid and cystic pancreatic tail lesion which corresponds to the lesion shown on CT o f November 18, 2020. Solid pseudopapillary tumor of the pancreas is the primary differential consideratio n given the patient's age and sex. However, this lesion is pathologically indeterminate and tissue sa mpling is recommended, potentially with endoscopic ultrasound. 2. No biliary or pancreatic ductal dilatation. 3. Hepatic steatosis. 4. Subcentimeter hepatic lesion identified on ultrasound not visualized on this study. ACT 112: Positive. There are findings on this exam that require communication between the performing entity and the patient following Patient Test Result Information Act ([place] Act 112) guidelines. Electronically signed by: George Fletcher M.D. 11/19/2020 1:56 PM
--- NOTE | 2020-11-19 16:11 | Hospitalist Progress Note ---
Date of Service November 19, 2020 Assessment & Plan (1) Abdominal pain: Possible early pancreatitis as per discussion with teleradiologist ? Precipitated by alcohol although not excessive as per patient account. Rule out biliary etiology Asymptomatic pyuria, contaminated specimen OBS GMF IVF, analgesia, bowel rest Gallbladder ultrasound Follow official CT abdomen pelvis results GI consult Re: Abdominal pain, possible early pancreatitis follow urine CS, hold off on antibiotics for now for asymptomatic pyuria. DVT prophylaxis with Lovenox subcu Full code Text document was generated using [employer]-Drive voice recognition software. It may contain grammatical or spelling errors. Kindly contact undersigned for clarification of any documentation item in question. (2) Acute pancreatitis: Possible acute pancreatitis with recent symptoms of epigastric pain and tenderness and food avoidance, although this appears to be clearing if it were present as she is now tolerating PO without much issue and her epigastric pain has now resolved. Her pain is now more in the LLQ and in the left flank. This may correlate with new 3x2cm pancreatic tumor. (3) Pancreatic abnormality: (4) DVT prophylaxis: (5) Hepatic steatosis: Admission and Anticipated Discharge Date Admission Date: November 19, 2020 Results & Data Results & Data ([facility]) Vital Signs (Past 12 Hours) Vital Signs Temp Pulse Resp BP Pulse Ox 11/19/20 15:27 36.9 C 93 H 16 139/99 97 11/19/20 07:36 36.8 C 98 H 18 144/90 H 98 Laboratory Results Short CBC 11/18/20 11/19/20 Range/Units 19:27 07:26 WBC 12.25 H 8.86 (4.8-10.8) K/uL Hgb 15.6 13.6 (12.0-16.0) g/dL Hct 44.1 39.0 (37-47) % Plt Count 329 265 (130-400) K/uL BMP 11/18/20 11/18/20 11/19/20 19:27 20:20 07:26 Sodium 137 137 Potassium 3.6 3.7 Chloride 105 106 Carbon Dioxide 25 23 BUN 7 5 L Creatinine 0.75 0.47 L Glucose 95 131 H Calcium 9.5 9.0 Cardiac Enzymes 11/18/20 Range/Units 20:20 Troponin I < 0.015 (0-0.045) ng/ml Liver Function 11/18/20 11/18/2021 Range/Units 19:27 20:20 07:26 Total Bilirubin 0.7 0.6 (0.2-1) mg/dl AST 13 L 11 L (15-37) U/L ALT 25 18 (12-78) U/L Alkaline Phosphatase 69 58 (45-117) U/L Albumin 3.9 3.2 L (3.4-5.0) gm/dl Urine 11/18/20 Range/Units 19:21 Urine Color Yellow Urine Appearance Cloudy A (Clear) Urine pH 5.5 (4.5-7.5) Ur Specific [place] 1.015 (1.000-1.030) Urine Protein 1+ H (Negative) Urine Glucose (UA) Negative (Negative) Diagnostic Findings [facility], [phone] Magnetic Resonance Report Patient: MERLENE SILVA EAdmit Date: 11/19/20MR#: [id number]: spring KOBUK RDAcct ID:[id number]: Date: 1990[facility] Zip: [place] [address]Kxq: 31Location: 3NSex: FRo/Bed: [id number] Phy: Mary Del Cid DODiagnosis: ABDOMINAL PAINPri Phy: Maryjo Saravia DOService Date: 11/19/20Fa Phy:Interpreting Phy: George Fletcher [facility] Phy: Surinder Barragan MD Ordering Phy: Elvie Engle CRNP cc: ~ MRI OF THE ABDOMEN WITH AND WITHOUT CONTRAST CLINICAL HISTORY: Pancreatic and liver lesions. COMPARISON STUDY: CT of the abdomen and pelvis November 18, 2020. Right upper quadrant ultrasound November 19, 2020. TECHNIQUE: Utilizing a 1.5 Sahara magnet and dedicated coil, multiplanar, multiecho imaging of the abdomen was performed pre and postcontrast administration. Intravenous injection of 10 cc of Eovist was uneventful. Post contrast imaging was performed with dynamic enhancement, as well as 20 minute delayed phase imaging. FINDINGS: Note is made of a 3.4 x 2.6 cm lesion within the pancreatic tail which corresponds to the finding on CT of November 18, 2020. The peripheral components of this lesion enhance. Central portion appears cystic or necrotic. There is trace adjacent fluid. No pancreatic or biliary ductal dilatation is present. No additional pancreatic lesions are present. There is no abdominal lymphadenopathy. Splenic vein is patent. Loss of signal within the liver on the phase sequence indicates hepatic steatosis with focal area of increased hepatic steatosis within the medial segment. The 7 mm lesion within the liver on ultrasound of November 29, 2020 is not identified on this examination. The gallbladder is unremarkable. The spleen, adrenal glands and kidneys are unremarkable. There is no hydronephrosis. The caliber and wall thickness of small and large bowel are normal. IMPRESSION: 1. 3.4 x 2.6 cm solid and cystic pancreatic tail lesion which corresponds to the lesion shown on CT of November 18, 2020. Solid pseudopapillary tumor of the pancreas is the primary differential consideration given the patient's age and sex. How ever, this lesion is pathologically indeterminate and tissue sampling is recommended, potentially with endoscopic ultrasound. 2. No biliary or pancreatic ductal dilatation. 3. Hepatic steatosis. 4. Subcentimeter hepatic lesion identified on ultrasound not visualized on this study. ACT 112: Positive. There are findings on this exam that require communication between the performing entity and the patient following Patient Test Result Information Act ([place] Act 112) guidelines. Electronically signed by: George Fletcher M.D. 11/19/2020 1:56 PM Dictated: 11/19/20 133Transcribed: 11/19/20 1331 Medications Administered Current Inpatient Medications Enoxaparin Sodium (Enoxaparin Inj 40 Mg/0.4 Ml Syr) 40 mg SQ QAM [facility] Stop: 12/19/20 08:59 Last Admin: 11/19/20 09:18 Dose: 40 mg Documented by: Lorazepam (Ativan) 0.25 mg in 0.5 mls @ 0.5 mls/min IV Q4H PRN PRN Reason: Anxiety Stop: 12/19/20 02:00 Promethazine HCl 12.5 mg/ (Sodium Chloride) 50.5 mls @ 202 mls/hr IV Q6H PRN PRN Reason: Nausea And Vomiting Stop: 12/19/20 02:00 Lactated Ringer's (Lr) 1,000 mls @ 200 mls/hr IV .Q5H GEOVANI Stop: 11/20/20 06:59 Last Admin: 11/19/20 14:51 Dose: 200 mls/hr Documented by: Ketorolac Tromethamine (Ketorolac Tromethamine 15 Mg/Ml Vial) 15 mg IV Q6H PRN PRN Reason: pain Stop: 11/24/20 07:59 Last Admin: 11/19/20 14:46 Dose: 15 mg Documented by: Morphine Sulfate (Morphine Sulfate 4 Mg/Ml 1 Ml Carp\Vial) 4 mg IV Q6H PRN PRN Reason: Pain Stop: 12/03/20 02:00 Ondansetron HCl (Ondansetron Inj 2 Mg/Ml 2 Ml Vial) 4 mg IV Q8H PRN PRN Reason: Nausea And Vomiting Stop: 12/19/20 07:50 Last Admin: 11/19/20 08:09 Dose: 4 mg Documented by: Oxycodone HCl (Oxycodone Hcl Ir 5 Mg Tab (Immediate Release)) 5 mg PO Q4H PRN PRN Reason: Pain Stop: 12/03/20 02:00 Pantoprazole Sodium (Pantoprazole 40 Mg Tab) 40 mg PO BID GEOVANI Stop: 12/19/20 08:59 Last Admin: 11/19/20 09:18 Dose: 40 mg Documented by: Polyethylene Glycol (Polyethylene (Miralax) 17 Gm Pack) 17 gm PO DAILY PRN PRN Reason: Constipation Stop: 12/19/20 12:36 (1) Abdominal pain Abdominal location: epigastric Qualified Code(s): R10.13 - Epigastric pain (2) Acute pancreatitis Acute pancreatitis complication: unspecified Pancreatitis type: unspecified pancreatitis type Qualified Code(s): K85.90 - Acute pancreatitis without necrosis or infection, unspecified
--- NOTE | 2020-11-19 18:30 | Discharge Summary ---
Date of Service November 19, 2020 Admission HPI Per Admitting Provider History obtained from patient and records. Medical history significant for obesity, gestational DM as per records. Last confinement September 2019 under OB service for UTI. 3 days history of achy epigastric discomfort going to the chest and back described as heartburn-like with nausea without emesis. No prior episodes. No OTC NSAID intake. Discomfort unrelieved by Tums and Pepto-Bismol at home. No fever, no chills. 3 alcoholic drinks for Sunday as per patient. Patient denies UTI symptoms. Patient seen at PCP's office 2 days ago. Symptoms attributed to gastritis. PPI twice daily prescription given. Intractable pain despite patient compliance with regimen. IV Ceftriaxone given at the ER for possible UTI. Medical History as above Surgical History : Dental surgery Family History : Alcoholic pancreatitis Personal/Social history : Non-smoker, occasional EtOH intake, homemaker Admission Exam Per Admitting Provider GENERAL: uncomfortable, obese, no respiratory distress SKIN: Normal color, warm HEENT: [place] palpebral conjunctivae, no ptosis, dry buccal mucosa NECK : Supple, no tenderness CHEST : CTA, no tenderness HEART : RRR, no obvious murmurs ABDOMEN: Some distention, epigastric tenderness EXTREMITIES : No LE swelling/tenderness, no other conspicuous deformities noted NEUROLOGIC : Coherent, no facial asymmetry, no other gross focality Principal Diagnosis pancreatic lesion Discharge Exam CONSTITUTIONAL: WNWD, vitals as above, generally well-appearing EYES: normal conjunctivae, no scleral icterus ENT: external ear and nose normal RESPIRATORY: clear to auscultation bilaterally, no crackles, rales or wheezes, normal respiratory effort CARDIOVASCULAR: regular rate and rhythm, S1 and 2 heard without murmurs, gallops or rubs, no JVD, no peripheral edema GASTROINTESTINAL: soft, LUQ/LLQ tenderness to palpation, nondistended, no guarding. MUSCULOSKELETAL: strength 5/5 throughout, head is normocephalic and atraumatic, neck supple, normal palpation of chest wall without tenderness SKIN: warm and dry NEUROLOGIC: CN 2-12 grossly intact, no sensory deficit, normal cognition, normal speech PSYCHIATRIC: alert cooperative and oriented to person, place and time. Discharge Data Allergies Allergy/AdvReac Type Severity Reaction Status Date / Time No Known Allergies Verified 11/23/20 17:07 Consultations 11/18/20 22:54 ED Decision to Admit Stat 11/19/20 02:01 Consult Gastroenterology Routine Ordered Studies Laboratory Results WBC 8.86 K/uL (4.8-10.8) 11/19/20 07:26 RBC 4.50 M/uL (4.2-5.4) 11/19/20 07:26 Hgb 13.6 g/dL (12.0-16.0) 11/19/20 07:26 Hct 39.0 % (37-47) 11/19/20 07:26 MCV 86.7 fL (80-100) 11/19/20 07:26 MCH 30.2 pg (25-34) 11/19/20 07: MCHC 34.9 g/dL (32-36) 11/19/20 07:26 RDW Std Deviation 38.7 fL (36.4-46.3) 11/19/20 07: RDW Coeff of Kevin 12.2 % (11.5-14.5) 11/19/20 07:26 Plt Count 265 K/uL (130-400) 11/19/20 07:26 MPV 10.9 fL (7.4-10.4) H 11/19/20 07:26 Immature Gran % (Auto) 0.1 % 11/19/20 07:26 Neut % (Auto) 69.8 % 11/19/20 07:26 Lymph % (Auto) 20.3 % 11/19/20 07:26 Ocean % (Auto) 7.9 % 11/19/20 07:26 Eos % (Auto) 1.7 % 11/19/20 07:26 Baso % (Auto) 0.2 % 11/19/20 07:26 Neut # (Auto) 6.18 K/uL (1.4-6.5) 11/19/20 07:26 Lymph # (Auto) 1.80 K/uL (1.2-3.4) 11/19/20 07:26 Ocean # (Auto) 0.70 K/uL (0.11-0.59) H 11/19/20 07:26 Eos # (Auto) 0.15 K/uL (0-0.5) 11/19/20 07:26 Baso # (Auto) 0.02 K/uL (0-0.2) 11/19/20 07:26 Immature Gran # (Auto) 0.01 K/uL (0.00-0.02) 11/19/20 07:26 Sodium 137 mmol/L (136-145) 11/19/20 07:26 Potassium 3.7 mmol/L (3.5-5.1) 11/19/20 07:26 Chloride 106 mmol/L (98-107) 11/19/20 07:26 Carbon Dioxide 23 mmol/L (21-32) 11/19/20 07:26 Anion Gap 8.0 (3-11) 11/19/20 07:26 BUN 5 mg/dl (7-18) L 11/19/20 07:26 Creatinine 0.47 mg/dl (0.6-1.2) L 11/19/20 07:26 Est Cr Clr Drug Dosing 173.5 ml/min 11/19/20 07:26 Est GFR ( Amer) > 150.0 11/19/20 07:26 Est GFR (Non-Af Amer) 131.6 11/19/20 07:26 BUN/Creatinine Ratio 11.0 (10-20) 11/19/20 07:26 Glucose 131 mg/dl (70-99) H 11/19/20 07:26 Calcium 9.0 mg/dl (8.5-10.1) 11/19/20 07:26 Magnesium 2.1 mg/dl (1.8-2.4) 11/18/20 20:20 Total Bilirubin 0.6 mg/dl (0.2-1) 11/19/20 07:26 AST 11 U/L (15-37) L 11/19/20 07:26 ALT 18 U/L (12-78) 11/19/20 07:26 Alkaline Phosphatase 58 U/L (45-117) 11/19/20 07:26 Troponin I < 0.015 ng/ml (0-0.045) 11/18/20 20:20 Total Protein 7.0 gm/dl (6.4-8.2) D 11/19/20 07:26 Albumin 3.2 gm/dl (3.4-5.0) L 11/19/20 07:26 Globulin 3.8 gm/dl (2.5-4.0) 11/19/20 07:26 Albumin/Globulin Ratio 0.8 (0.9-2) L 11/19/20 07:26 Triglycerides 211 mg/dl (0-150) H 11/19/20 07: Lipase 195 U/L (73-393) 11/18/20 19:27 Procalcitonin < 0.05 ng/ml (0-0.5) 11/19/20 07: TSH 1.980 uIu/ml (0.300-4.500) 11/18/20 20:20 HCG, Qual Negative (Negative) 11/18/20 19: Urine Color Yellow 11/18/20 19:21 Urine Appearance Cloudy (Clear) A 11/18/20 19: Urine pH 5.5 (4.5-7.5) 11/18/20 19: Ur Specific [place] 1.015 (1.000-1.030) 11/18/20 19: Urine Protein 1+ (Negative) H 11/18/20 19: Urine Glucose (UA) Negative (Negative) 11/18/20 19: Urine Ketones 1+ (Negative) H 11/18/20 19:21 Urine Blood Negative (Negative) 11/18/20 19: Urine Nitrite Negative (Negative) 11/18/20 19: Urine Bilirubin Negative (Negative) 11/18/20 19: Urine Urobilinogen Negative (Negative) 11/18/20 19:21 Ur Leukocyte Esterase 3+ (Negative) H 11/18/20 19:21 Urine WBC (Auto) >30 /hpf (0-5) H 11/18/20 19:21 Urine RBC (Auto) 0-4 /hpf (0-4) 11/18/20 19: U Hyaline Cast (Auto) 5-10 /lpf (0-5) H 11/18/20 19:21 U Epithel Cells (Auto) >30 /lpf (0-5) H 11/18/20 19:21 Urine Bacteria (Auto) 1+ (Negative) H 11/18/20 19:21 COVID-19 Eval Order CovFluRsv at [facility] 11/18/20 23:41 SARS-CoV-2 (PCR) NEGATIVE (Negative) 11/18/20 23:41 Influenza Type A (PCR) Negative (Neg) 11/18/20 23:41 Influenza Type B (PCR) Negative (Neg) 11/18/20 23:41 RSV (RT-PCR) Negative (Neg) 11/18/20 23:41 Impressions Abdomen/Pelvis CT 11/18/20 20:35 CT SCAN OF THE ABDOMEN AND PELVIS WITH IV CONTRAST CLINICAL HISTORY: Epigastric abdominal pain. Left flank pain. COMPARISON STUDY: Abdominal CT dated 10/11/2019. TECHNIQUE: Following the IV administration of 94 cc of Optiray 320, CT scan of the abdomen and pelvis is performed from the lung bases to the proximal femora. Images are reviewed in the axial, sagittal, and coronal planes. IV contrast was administered without complication. A dose lowering technique was utilized adhering to the principles of ALARA. CT DOSE: 731.37 mGy.cm FINDINGS: Lung bases: The heart is normal in size and without pericardial effusion. The lung bases are clear. Liver: The contrast-enhanced liver is normal in size, contour, and attenuation. Fatty sparing is noted adjacent to falciform ligament. There is no intrahepatic biliary ductal dilatation. The hepatic veins and portal veins are patent. Gallbladder: Unremarkable. Spleen: Normal in size and attenuation. Pancreas: There is a 3.2 x 2.4 cm heterogeneous low-attenuation focus identified in the pancreatic tail on image #154. The remainder the pancreas is normal in appearance. The pancreatic duct is normal in caliber. No peripancreatic inflammation is identified. Adrenal glands: Unremarkable. Kidneys: The contrast enhanced kidneys are normal in size and without hydronephrosis. The kidneys enhance symmetrically. Abdominal vasculature: The abdominal aorta is normal in course and caliber. Bowel: There is mild colonic diverticulosis without CT evidence of acute diverticulitis. No bowel obstruction is seen. Mild fecal retention is noted throughout the colon. Residual enteric contrast is noted in the colon. The appendix is well-visualized and normal. Peritoneum: There is no intraperitoneal free air or abdominal ascites. There is a fat-containing umbilical hernia. Lymphadenopathy: None. Pelvic viscera: The bladder, uterus, and adnexa are normal as visualized noting bilateral ovarian follicles. A contraceptive ring is in place. Skeletal structures: No lytic or blastic lesions are seen. IMPRESSION: 1. There is a 3.2 x 2.4 cm heterogeneous low-attenuation focus in the pancreatic tail. This is pathologically indeterminant and new from 10/11/2019. Although this could represent an atypical appearance of pancreatitis, there is no surrounding inflammation and the appearance is a more concerning for mass lesion. Correlation with a contrast-enhanced abdominal MRI is recommended for further assessment. 2. Mild colonic diverticulosis without CT evidence of acute diverticulitis. 3. Additional findings as above. ACT 112: Negative or not required by law. Electronically signed by: Lex Yusuf M.D. 11/19/2020 8:13 AM Gallbladder Ultrasound 11/19/20 00:09 ABDOMINAL ULTRASOUND, RIGHT UPPER QUADRANT HISTORY: Generalized abdominal pain.. COMPARISON: Abdomen and pelvis CT 11/18/2020. FINDINGS: Pancreas: There is a 2.6 x 1.9 cm hypoechoic lesion at the pancreatic tail. Liver: 7 mm hypoechoic focus within the left hepatic lobe. There is focal fat near the falciform ligament. Possible areas of focal fatty sparing at the gallbladder fossa. Gallbladder: No gallbladder wall thickening. No gallstones. CBD: 3 mm. Right kidney: No hydronephrosis. IMPRESSION: 1. A 2.6 x 1.9 cm hypoechoic lesion of the pancreatic tail. Follow-up MRI recommended for further evaluation. 2. A 7 mm indeterminate hypoechoic focus within the left hepatic lobe. This can also be assessed with follow-up MRI. ACT 112: Negative or not required by law. Electronically signed by: Nelson Zhu M.D. 11/19/2020 8:11 AM Abdomen MRI 11/19/20 08:56 MRI OF THE ABDOMEN WITH AND WITHOUT CONTRAST CLINICAL HISTORY: Pancreatic and liver lesions. COMPARISON STUDY: CT of the abdomen and pelvis November 18, 2020. Right upper quadrant ultrasound November 19, 2020. TECHNIQUE: Utilizing a 1.5 Sahara magnet and dedicated coil, multiplanar, multiecho imaging of the abdomen was performed pre and postcontrast administration. Intravenous injection of 10 cc of Eovist was uneventful. Post contrast imaging was performed with dynamic enhancement, as well as 20 minute delayed phase imaging. FINDINGS: Note is made of a 3.4 x 2.6 cm lesion within the pancreatic tail which corresponds to the finding on CT of November 18, 2020. The peripheral components of this lesion enhance. Central portion appears cystic or necrotic. There is trace adjacent fluid. No pancreatic or biliary ductal dilatation is present. No additional pancreatic lesions are present. There is no abdominal lymphadenopathy. Splenic vein is patent. Loss of signal within the liver on the phase sequence indicates hepatic steatosis with focal area of increased hepatic steatosis within the medial segment. The 7 mm lesion within the liver on ultrasound of November 29, 2020 is not identified on this examination. The gallbladder is unremarkable. The spleen, adrenal glands and kidneys are unremarkable. There is no hydronephrosis. The caliber and wall thickness of small and large bowel are normal. IMPRESSION: 1. 3.4 x 2.6 cm solid and cystic pancreatic tail lesion which corresponds to the lesion shown on CT of November 18, 2020. Solid pseudopapillary tumor of the pancreas is the primary differential consideration given the patient's age and sex. However, this lesion is pathologically indeterminate and tissue sampling is recommended, potentially with endoscopic ultrasound. 2. No biliary or pancreatic ductal dilatation. 3. Hepatic steatosis. 4. Subcentimeter hepatic lesion identified on ultrasound not visualized on this study. ACT 112: Positive. There are findings on this exam that require communication between the performing entity and the patient following Patient Test Result Information Act ([place] Act 112) guidelines. Electronically signed by: George Fletcher M.D. 11/19/2020 1:56 PM Hospital Course (1) Pancreatic lesion: The patient is a 30-year-old female who presented with abdominal pain described as heartburn-like with nausea without emesis focused initially in the epigastric area and now currently more in the left upper quadrant/left flank area. She was initially thought to have pancreatitis and was admitted to the hospitalist service for bowel rest and IV fluids as well as supportive care. A CT scan of the abdomen pelvis with IV contrast revealed a 3.2 x 2.4 cm heterogeneous low-attenuation focus of the pancreatic tail consistent with a mass lesion. There was no surrounding inflammation consistent with pancreatitis. The patient was able to tolerate food on hospital day 2 and the focus shifted more toward the pancreatic mass as the cause of pain as opposed to pancreatitis. A gallbladder ultrasound was performed revealing pancreatic tail lesion and a 7 mm indeterminate focus in the left hepatic lobe. GI was consulted and recommended an MRI of the abdomen with and without contrast. This revealed a 3.4 x 2.6 cm solid and cystic pancreatic tail lesion with solid pseudopapillary tumor of the pancreas as the primary differential consideration given the patient's age and sex. However, the lesion is pathologically indeterminate and tissue sampling was recommended. Therefore, she was set up for an outpatient endoscopic ultrasound with potential biopsy with [facility] gastroenterology. Also of importance there was no biliary or pancreatic ductal dilation and no evidence of stones. The patient was not a heavy alcohol user. She also had hepatic steatosis on imaging. The subcentimeter hepatic lesion seen on ultrasound was not visualized on abdominal MRI. After the findings were discussed with the patient and her aunt per her request, she requested discharge home and was tolerating p.o. and feeling better at that point. On the evening of hospital day 2 she was hemodynamically stable and afebrile, mentating and ambulating at baseline. She was discharged in stable condition with close primary care follow-up recommended and continued work-up of her pancreatic tail lesion as well as her subcentimeter hepatic lesion as outpatient. Again, findings were discussed with her and per her request by phone and all questions were answered. Total Time Total Time Spent Total Time Spent (In Minutes): 60 Total Time Includes: Examination of the Patient, Discharge Planning, Medication Reconciliation and Communication With Other Providers Discharge Plan Discharge Items Patient Disposition: Home - Self-Care Reason For Visit: ABDOMINAL PAIN Discharge Diagnosis: pancreatic lesion Activity: Resume your previous activity Non-emergency contact: Primary Care Provider Call non-emergency contact if: you have any medication questions Follow-up/Referrals: Maryjo Saravia DO [Primary Care Provider] - Diet: Low Fat Addtl Attending Provider Instructions: It is recommended that you follow-up with your primary care physician within one week of discharge to ensure you are still doing well from a pain standpoint. It is possible that you had pancreatitis and have recovered and they will be able to assess you abdomen again at this time. Also, a PCP is very helpful in organizing specialty referrals as needed. Please continue with a low fat diet. [facility] Gastroenterology will be contacting you early next week to set up your endoscopic ultrasound in two weeks time. If you don't hear from them please contact someone at . It was a pleasure taking care of you! Please call if you have any questions or problems. You can reach a [facility] hospitalist on duty at [facility] 24 hours a day by calling [phone]. Take care of yourself. Mary Del Cid, [place] Hospitalist Pending Studies at Discharge: No Stand-Alone Forms: [facility] Medications and DC Order Prescriptions: New ibuprofen 800 mg tablet 800 mg PO Q8H PRN (Reason: pain) Qty: 20 RF: 0 acetaminophen-codeine 300-30 mg tablet 1 tab PO Q8H PRN (Reason: severe pain) Qty: 15 RF: 0 Continued phentermine 37.5 mg tablet 37.5 mg PO UD RF: 0 pantoprazole 20 mg tablet,delayed release (DR/EC) 20 mg PO QAM RF: 0 No Action etonogestrel-ethinyl estradiol [NuvaRing] 0.12-0.015 mg/24 hr ring 1 vag ring PV ONCE 21 Days Qty: 1 RF: 1 Discharge Orders: Discharge Order (Routine); Ordered 11/19/20 Ordered By: Mary Ritchie/Other Patient Handouts: Understanding Pancreatitis, Discharge Instructions for Acute ... Admission Data Admit Date/Time: 11/19/20 00:13 Attending Provider: Mary Del Cid Admit Provider: Surinder Barragan Primary Care Provider: Maryjo Saravia Other Providers: Sanaz Bagley Other Interventions: Discharge Summary Assessment (RN) Last Done: 11/19/20 18:30
== END 2020-11-19 19:18 | disposition home or self-care (01) ==
LOC: 3N 17:39 → ED 17:39 → 3N 11-19 01:15